=== PATIENT | male | born 1940 | race Caucasian/White ===

== ENCOUNTER → 2018-03-07 14:34 | Outpatient (POV) | payer MEDICARE, BC, SELFPAY | PROVIDERS: Visit Provider Dermatology | DX: Z00.00 Encounter for general adult medical examination without abnormal findings (principal) ==

== ENCOUNTER → 2018-07-04 08:45 | Outpatient (POV) | payer MEDICARE, BC, SELFPAY | PROVIDERS: Visit Provider Dermatology | DX: Z00.00 Encounter for general adult medical examination without abnormal findings (principal) ==

== ENCOUNTER → 2018-07-25 09:48 | Outpatient (POV) | payer MEDICARE, BC, SELFPAY | PROVIDERS: Visit Provider Dermatology | DX: Z00.00 Encounter for general adult medical examination without abnormal findings (principal) ==

== ENCOUNTER → 2018-08-08 09:53 | Outpatient (POV) | payer MEDICARE, BC, SELFPAY | PROVIDERS: Visit Provider Dermatology | DX: Z00.00 Encounter for general adult medical examination without abnormal findings (principal) ==

== ENCOUNTER → 2018-08-15 09:42 | Outpatient (POV) | payer MEDICARE, BC, SELFPAY | PROVIDERS: Visit Provider Dermatology | DX: Z00.00 Encounter for general adult medical examination without abnormal findings (principal) ==

== ENCOUNTER → 2018-12-19 09:14 | Outpatient (POV) | payer MEDICARE, BC, SELFPAY | PROVIDERS: Visit Provider Dermatology | DX: Z00.00 Encounter for general adult medical examination without abnormal findings (principal) ==

== ENCOUNTER → 2019-04-09 08:44 | Outpatient (CLI) | payer MEDICARE, BC, SELFPAY ==
[2019-04-09 14:08] LABS: Blood Urea Nitrogen 22 mg/dL (7-18); Calcium 8.3 mg/dL (8.5-10.1); Carbon Dioxide 28 mmol/L (21.0-32.0); Chloride 107 mmol/L (98-107); Creatinine,Serum 1.58 mg/dL (0.70-1.30); Estimated Glomerular Filt Rate 42 ml/min (>60); GFR (African American) 51 ML/MIN (>60); Glucose 123 mg/dL (74-106); Sodium 143 mmol/L (136-145)
== END ==
PROVIDERS: PCP Internal Medicine Adolescent Medicine; Visit Provider Internal Medicine Adolescent Medicine
DX: E87.5 Hyperkalemia (principal); I10 Essential (primary) hypertension
CPT/HCPCS: 36415; 80048

== ENCOUNTER → 2019-04-24 13:04 | Outpatient (POV) | payer MEDICARE, BC, SELFPAY | PROVIDERS: Visit Provider Dermatology | DX: Z00.00 Encounter for general adult medical examination without abnormal findings (principal) ==

== ENCOUNTER → 2019-05-15 11:03 | Outpatient (POV) | payer MEDICARE, BC, SELFPAY | PROVIDERS: Visit Provider Dermatology | DX: Z00.00 Encounter for general adult medical examination without abnormal findings (principal) ==

== ENCOUNTER 2019-12-03 10:00 | Outpatient (RCR) | payer MEDICARE, BC, SELFPAY ==
--- NOTE | 2019-10-25 11:57 | HMH.PTOPEV ---
PT Outpatient Evaluation Rehab PT Outpatient Evaluation Start: 10/25/19 11:21 Freq: Status: Active Protocol: Document 10/25/19 11:21 CITLALY (Rec: 10/25/19 11:57 PDESEROUX [id number]) Electronically Signed By Gustabo Dumont, PT 10/25/19 11:21 Outpatient Therapy Subjective History Subjective History Pt. is a 79 year old male who presents to outpatient PT clinic w/ complaints of chronic and activity dependent LOB during ambulation of insidious onset 6 months ago. Pt. reports mostly falling to the left side when he loses his balance . Pt. denies having any P! in the LLE, but states my left leg doesn't seem to work, seems to drag. Pt. denies falling in the past 6 months, but does report having to catch himself with the wall/ couch while ambulating in his house.(PT instructed pt. to ambulate w/ SPC as needed) Pt. denies fainting, black outs, nor dizziness. Pt. RTMD for a regular check up. Current medications include Verapamil, Simvastatin, Allopurionl, low dose Aspirin, Preservision, Losaratan, and Carvedilol. PMH includes bowel resection d/t history of colon cancer, Mohs surgeries, and Leukemia(daignosed 15 years ago). Chief Complaint Other,Decreased Coordination Symptom Type Other Symptoms Relieved By Rest/Positioning Symptoms Aggravated By Physical Activity,Walking Prior Functional Limitations None Current Functional Limitations Housework,Standing,Walking, Stairs,Balance Symptom Description Activity Dependent Level of pain today (0-10) 0 Pain scale - at its best (0-10) 0 Pain scale - at its worst (0-10) 0 Hip/Knee Eval Gait Observation General Gait Pattern Observation No Deviations/Normal Assistive Device Assistive Devices None / NA Palpation Tenderness left Knee Palpation Finding None/Normal Hip Palpation Findings None/Normal MMT right Hip Strength Reason
== END 2019-12-03 13:00 | disposition home or self-care (01) ==
LOC: PT.CARL 10:00
PROVIDERS: Visit Provider Internal Medicine Adolescent Medicine
DX: R29.898 Other symptoms and signs involving the musculoskeletal system (principal)
CPT/HCPCS: 97110; 97112; 97163

== ENCOUNTER → 2020-04-14 13:57 | Outpatient (CLI) | payer MEDICARE, BC, SELFPAY ==
[2020-04-14 15:26] LABS: Chloride 112 mmol/L (98-107); Potassium 4.2 mmoL/L (3.5-5.1); Sodium 141 mmol/L (136-145)
[2020-04-14 15:29] LABS: Anion Gap 9.2 mEq/L (5-15); Blood Urea Nitrogen 27 mg/dl (9-20); Carbon Dioxide 24 mmol/L (22.0-30.0); Estimated Glomerular Filt Rate 26 ml/min (>60); GFR (African American) 32 ML/MIN (>60)
[2020-04-14 15:30] LABS: Calcium 8.4 mg/dl (8.4-10.2); Glucose 97 mg/dl (74-100)
[2020-04-14 16:07] LABS: Basophils # 3.1 K/mm3 (0-0.2); Basophils % 2.8 % (0.1-2.0); Eosinophils # 0.2 K/mm3 (0.0-0.4); Eosinophils % 0.1 % (0.1-12.0); Hematocrit 42.6 % (42.0-52.0); Hemoglobin 13.5 g/dL (14.1-18.0); Lymphocytes # 100.5 K/mm3 (0.7-4.5); Lymphocytes % 89.9 % (10-50); Mean Corpuscular HGB Conc 31.6 g/dL (31.8-35.4); Mean Corpuscular Hemoglobin 29.5 pg (27.0-31.2); Mean Corpuscular Volume 93.5 fl (80-94); Monocytes # 0.8 K/mm3 (0.1-1.0); Monocytes % 0.7 % (1.7-9.3); Neutrophils # 7.3 K/mm3 (1.8-7.8); Platelet Count 146 K/mm3 (142-424); Red Blood Count 4.56 M/mm3 (4.60-6.20); Red Cell Distribution Width 15.7 % (11.5-17.5)
[2020-04-14 17:23] LABS: Coronavirus 19 IgG Antibody Negative (Negative); Coronavirus 19 IgM Antibody Negative (Negative)
[2020-04-14 17:27] LABS: Neutrophils % 6.5 % (37.0-80.0)
[2020-04-14 17:29] LABS: White Blood Count 111.8 K/mm3 (4.8-10.8)
[2020-04-14 17:31] LABS: MANUAL DIFFERENTIAL MANUAL DIFFERENTIAL (MANUAL DIFF)
[2020-04-14 22:20] LABS: Hypochromasia 1+; Lymphocytes % 82 % (10-50); Neutrophils % 10 % (42-76); Platelet Estimate Normal; RBC Morphology Normal; Total Cells Counted 100
[2020-04-16 14:04] LABS: Peripheral Smear Review Scanned Result
== END ==
PROVIDERS: Visit Provider Surgery
DX: L98.9 Disorder of the skin and subcutaneous tissue, unspecified (principal); Z01.812 Encounter for preprocedural laboratory examination; Z11.52 Encounter for screening for COVID-19
CPT/HCPCS: 36415; 80048; 85007; 85025; 86328

== ENCOUNTER 2020-04-16 06:03 | Day surgery (SDC) | payer MEDICARE, BC, SELFPAY ==
[2020-04-15 10:32] VITALS: BMI 24.4
[2020-04-16] VITALS (11 sets, daily range): BP systolic 128–165; BP diastolic 64–79; PULSE 51–58; RESP 12–18; TEMP 36.1–36.6; O2SAT 90–98
--- NOTE | 2020-04-16 06:52 | HMH.ANESCL ---
[facility] Anesthesia Checklist - Patient Identification Patient Identification: Arm Band, Verbal (Name & ) - Structural Data Admitted From: Home Planned Operative Procedure/s: excision scalp lession Consent for Planned Operative Procedure(s) Verified: Yes Verified Documents: History and Physical - NPO Status Verified Time NPO: 00:00 - Chart Verification Results Verified: CBC, BMP - Additional verifications Patient : No Anesthesia Reactions: No Hx Blood Transfusions: No Blood Transfusion Reaction: No Cephalosporin Allergy: No Previous Colonoscopy: Yes - Cardiovascular Assessment Heart Sounds: S1 & S2 Pulse Strength: Baseline Pulse Rhythm: Regular Peripheral Edema: No - Airway Assessment C-Spine Mobility Assessed: Yes TMJ Mobility Assessed: Yes Dentition: Poor Dentition - Neurological Assessment Level of Consciousness: Awake, Alert, Appropriate Hx Seizures: No Numbness or tingling in extremities: No - Anesthesia Plan Anesthesia Risk discussed: Yes Anesthesia Plan: Verified ASA Class: III Anesthesia Type: General [facility] History I have reviewed the patient's past medical history: Yes Medical History: Reports:: Cancer (CLL, colon cancer), Hyperlipidemia, Hypertension Denies:: Diabetes Mellitus Type 1, Diabetes Mellitus Type 2, Internal Pacemaker, MRSA, Seizures *Have you ever received a pneumonia vaccine?: Yes *Have you received a flu vaccine this season?: Yes Other Medical History: Reports: Other. Denies: Blood Transfusion Reaction Anesthesia experience/problems:: none Laterality Cases: Bilateral: Tonsillectomy Other Surgeries: Yes: Cancer Surgery, Colonoscopy, Other. No: Pacemaker Amputation: No Fractures: No - *Social History Last grade of school completed: Advanced degree Smoking Status: Never smoker Alcohol Intake: current Alcohol Intake Frequency:: 0-2 drinks per day Substance Use Type: denies use *Occupational Status:: retired Housing: house Household Members: spouse *Travel in the last 8 weeks: None Family Hx:: Cancer
--- NOTE | 2020-04-16 08:17 | HMH.OPNOTE ---
Date of procedure: 04/16/20 Pre-op Diagnosis:: Inflamed/infected sebaceous cyst, left scalp Post-op Diagnosis:: Same Procedure performed:: Excision and debridement of infected left scalp sebaceous cyst Surgeon:: Maynor Merchant MD APPLICATIONS ENGINEER:: Other Anesthesia: LMA Estimated blood loss (mL): 50 Clinical Note:: Patient is an 79-year-old male who is well-known to me from prior colon resection in 2011. He was referred and seen in the office 2 days ago. He also has a history of CLL. He has had previous basal cell carcinomas removed from the scalp. He states that over the past couple months he has had a swelling in the right posterior scalp area. It had markedly increased in size. He was seen in his primary care provider's office several weeks ago and referred for excision of sebaceous cyst. The area had continued to increase in size. Over the past couple weeks he has had some bloody particulate drainage exuding from the area. On examination in the office he had a very large likely infected abscessed draining sebaceous cyst. The options were discussed with the patient plan was made for incision with debridement and likely partial closure due to the infected nature. Operative findings:: Consistent with severely inflamed ruptured infected sebaceous cyst Operative note:: Patient was taken to the operating room. General anesthesia was induced via LMA. He was positioned. Limited skin shaving was performed around the lesion. It was prepped and draped in standard surgical fashion. There was central fluctuance and draining. Skin was marked with skin marker. Elliptical incision was made. Bloody fluid and caseous material exuded from the underlying tissues. This was sent for culture. Overlying skin ellipse was excised. Underlying tissues were quite ill-defined due to the chronic inflammatory response and infection. This required debridement using ultimately small curette to debride caseous material and make an attempt to debride any cyst capsule. Material was sent for specimen. Wound was irrigated. Hemostasis was achieved with electrocautery. Local anesthetic was infiltrated. Skin was closed with skin felicia leaving central gap to allow for drainage. Clean dry sterile dressing was applied. Condition: stable Disposition: PACU Specimens:: Sebaceous cyst . Complications:: None immediately apparent
== END 2020-04-16 09:53 | disposition home or self-care (01) ==
LOC: OR 06:05
PROVIDERS: PCP Internal Medicine Adolescent Medicine; Visit Provider Surgery
PROC: (CPT 11424; principal; 2020-04-16 07:30)
DX: L72.3 Sebaceous cyst; Z90.49 Acquired absence of other specified parts of digestive tract; Z85.038 Personal history of other malignant neoplasm of large intestine; Z85.6 Personal history of leukemia; Z85.828 Personal history of other malignant neoplasm of skin; E78.5 Hyperlipidemia, unspecified; I10 Essential (primary) hypertension; Z80.9 Family history of malignant neoplasm, unspecified; Z79.82 Long term (current) use of aspirin; Z79.899 Other long term (current) drug therapy
CPT/HCPCS: 11424; 12032; 87070; 87075; 87077; 87186; 87205; 88305; 96374; J2405

== ENCOUNTER → 2020-09-08 09:32 | Outpatient (CLI) | payer MEDICARE, BC, SELFPAY ==
[2020-09-08 14:29] LABS: Eosinophils # 0.2 K/mm3 (0.0-0.4); Eosinophils % 0.2 % (0.1-12.0); Hematocrit 35.7 % (42.0-52.0); Hemoglobin 11.5 g/dL (14.1-18.0); Lymphocytes # 93.4 K/mm3 (0.7-4.5); Lymphocytes % 91.7 % (10-50); Mean Corpuscular HGB Conc 32.3 g/dL (31.8-35.4); Mean Corpuscular Hemoglobin 28.5 pg (27.0-31.2); Mean Corpuscular Volume 88.1 fl (80-94); Mean Platelet Volume 8.4 fl (7.4-10.4); Monocytes # 0.7 K/mm3 (0.1-1.0); Monocytes % 0.7 % (1.7-9.3); Neutrophils # 5.5 K/mm3 (1.8-7.8); Platelet Count 105 K/mm3 (142-424); Red Blood Count 4.05 M/mm3 (4.60-6.20); Red Cell Distribution Width 15.7 % (11.5-17.5)
[2020-09-08 14:43] LABS: Alanine Aminotransferase 8 U/L (12-78); Albumin Level 3.2 g/dl (3.5-5.0); Albumin/Globulin Ratio 1.3 (1.1-1.8); Alkaline Phosphatase 115 U/L (38-126); Anion Gap 9.2 mEq/L (5-15); Aspartate Amino Transferase 22 U/L (17-59); Bilirubin,Total 0.6 mg/dl (0.2-1.3); Blood Urea Nitrogen 34 mg/dl (9-20); Calcium 8.3 mg/dl (8.4-10.2); Carbon Dioxide 22 mmol/L (22.0-30.0); Chloride 113 mmol/L (98-107); Estimated Glomerular Filt Rate 30 ml/min (>60); GFR (African American) 37 ML/MIN (>60); Globulin 2.5 g/dL (1.3-3.2); Glucose 88 mg/dl (74-100); Potassium 4.2 mmoL/L (3.5-5.1); Sodium 140 mmol/L (136-145); Total Protein,Serum 5.7 g/dl (6.3-8.2)
[2020-09-08 15:52] LABS: MANUAL DIFFERENTIAL MANUAL DIFFERENTIAL (MANUAL DIFF); Neutrophils % 5.4 % (37.0-80.0); White Blood Count 101.8 K/mm3 (4.8-10.8)
[2020-09-08 15:53] LABS: Eosinophils % 2 % (0-3); Lymphocytes % 89 % (10-50); Neutrophils % 9 % (42-76); Platelet Estimate Slight Decrease; Total Cells Counted 100
[2020-09-08 15:54] LABS: Anisocytosis 1+; Poikilocytosis 1+; RBC Morphology Normal
== END ==
PROVIDERS: Visit Provider Internal Medicine Adolescent Medicine
DX: C91.10 Chronic lymphocytic leukemia of B-cell type not having achieved remission (principal); R79.89 Other specified abnormal findings of blood chemistry
CPT/HCPCS: 36415; 80053; 85007; 85025

== ENCOUNTER → 2020-12-04 09:25 | Outpatient (CLI) | payer MEDICARE, BC, SELFPAY ==
--- NOTE | 2020-12-04 09:37 | XR_ITS ---
PROCEDURE: XR CHEST 2V CLINICAL HISTORY: DYSPENA UPON EXERTION COMPARISON: No exams were available for comparison FINDINGS: The cardiomediastinal silhouette and pulmonary vascularity are within normal limits. There are small bilateral pleural effusions left larger than right. Left basilar atelectasis or infiltrate changes are noted. Upper lobes are clear. No acute bony abnormalities. IMPRESSION: Bilateral pleural effusions with left basilar atelectasis or infiltrate Dictated by: Ryder Angeles MD 12/04/2020 15:52 Ryder Angeles MD in [place] 12/04/2020 15:52
[2020-12-04 10:01] LABS: Basophils # 3.2 K/mm3 (0-0.2); Basophils % 2.8 % (0.1-2.0); Eosinophils # 0.2 K/mm3 (0.0-0.4); Eosinophils % 0.1 % (0.1-12.0); Hematocrit 37.2 % (42.0-52.0); Hemoglobin 11.4 g/dL (14.1-18.0); Lymphocytes # 105.5 K/mm3 (0.7-4.5); Lymphocytes % 90.5 % (10-50); Mean Corpuscular HGB Conc 30.6 g/dL (31.8-35.4); Mean Corpuscular Hemoglobin 28.1 pg (27.0-31.2); Mean Corpuscular Volume 91.6 fl (80-94); Mean Platelet Volume 8.3 fl (7.4-10.4); Monocytes # 0.5 K/mm3 (0.1-1.0); Monocytes % 0.4 % (1.7-9.3); Neutrophils # 7.2 K/mm3 (1.8-7.8); Neutrophils % 6.2 % (37.0-80.0); Platelet Count 145 K/mm3 (142-424); Red Blood Count 4.07 M/mm3 (4.60-6.20); Red Cell Distribution Width 15.9 % (11.5-17.5)
[2020-12-04 10:04] LABS: White Blood Count 116.5 K/mm3 (4.8-10.8)
[2020-12-04 10:06] LABS: MANUAL DIFFERENTIAL MANUAL DIFFERENTIAL (MANUAL DIFF)
[2020-12-04 10:50] LABS: Lymphocytes % 90 % (10-50); Monocytes % 1 % (2-9); Neutrophils % 9 % (42-76); Platelet Estimate Normal; Total Cells Counted 100
[2020-12-04 10:51] LABS: RBC Morphology Normal
[2020-12-04 20:40] LABS: Chloride 112 mmol/L (98-107); Potassium 4.1 mmoL/L (3.5-5.1); Sodium 141 mmol/L (136-145)
[2020-12-04 20:43] LABS: Alanine Aminotransferase 8 U/L (12-78); Albumin Level 2.7 g/dl (3.5-5.0); Alkaline Phosphatase 106 U/L (38-126); Anion Gap 12.1 mEq/L (5-15); Aspartate Amino Transferase 20 U/L (17-59); Blood Urea Nitrogen 29 mg/dl (9-20); Carbon Dioxide 21 mmol/L (22.0-30.0); Estimated Glomerular Filt Rate 25 ml/min (>60); GFR (African American) 30 ML/MIN (>60); Globulin 2.6 g/dL (1.3-3.2); Glucose 143 mg/dl (74-100); Total Protein,Serum 5.3 g/dl (6.3-8.2)
[2020-12-04 20:58] LABS: Bilirubin,Total 0.1 mg/dl (0.2-1.3)
== END ==
PROVIDERS: Visit Provider Internal Medicine Adolescent Medicine
DX: R06.09 Other forms of dyspnea (principal); R63.4 Abnormal weight loss
CPT/HCPCS: 36415; 71046; 80053; 85007; 85025

== ENCOUNTER → 2020-12-09 10:44 | Outpatient (POV) | payer MEDICARE, BC, SELFPAY | PROVIDERS: Visit Provider Dermatology | DX: Z00.00 Encounter for general adult medical examination without abnormal findings (principal) ==

== ENCOUNTER → 2020-12-15 07:41 | Outpatient (CLI) | payer MEDICARE, BC, SELFPAY ==
--- NOTE | 2020-12-15 | CA_ITS ---
APPROVED REPORT EXAM: Comprehensive 2D, Doppler, and color-flow Echocardiogram Job Molder: Julieth Gil CRT Ht: 6 ft 0 in Wt: 172lbs BSA: 2.00 BP: 143/59 mmHg Indications: Shortness of Breath, Hyperlipidemia, Hypertension/HDD 2D Dimensions LVOT 2.02 cm (M/F) 1.5-2.5 M-Mode Dimensions RVDd 3.37 cm (0.9-2.6) LA Diam 5.07 cm (1.9-4.0) LVDd 4.94 cm (3.5-5.7) Ao Diam 3.69 cm (2.0-3.7) LVDs 3.77 cm (3.5-5.7) IVSd 2.13 cm (0.6-1.1) PWd 1.28 cm (0.6-1.1) EF (Teich) 47.10% FS 23.70% EDV (Teich) 115.00 mL TAPSE 2.02 (<1.7) ESV (Teich) 60.80 mL LV Diastology E Decel Time 293.00 (160-240 msec) E/A Ratio 2.48 MED E' 5.90 (< 7 cm/sec) MED A' 10.00 cm/s E'/MED E' Ratio 15.86 (>14) LAT E' 7.70 (<10 cm/sec) LAT A' 5.70 cm/s E/LAT E' Ratio 12.16 (>14) Aortic Valve AI PHT 648.00 ms AO Peak GR. 3.90 mmHg Mitral Valve MV E Max Aston. 94.00 (40-130 cm/s) MV A Velocity 38.00 (40-130 cm/s) E/A Ratio 2.48 MV Decel. Time 293.00 (160-240 ms) MV PHT 86.00 ms Pulmonary Valve PV Peak Velocity 203.00 (50-150 cm/s) Tricuspid Valve TR P. Velocity 329.00 cm/s RAP Estimate 10.00 mmHg RVSP 53.30 mmHg Left Ventricle Left atrium is mildly enlarged, left ventricle is normal size, mild concentric left ventricular hypertrophy, visually estimated ejection fraction 55% with no regional wall motion abnormality, diastolic parameters are inconclusive in the study. Right Ventricle Right atrium and right ventricle mildly enlarged with normal contractility. Aortic Valve Aortic valve is minimally thickened and fibrosed, there is no aortic stenosis, there is mild aortic insufficiency. Mitral Valve Mitral valve is minimally thickened, there is mild mitral regurgitation. Tricuspid Valve Tricuspid valve is grossly normal, there is mild tricuspid regurgitation, tricuspid regurgitation jet velocity is inadequate for calculation of the right ventricular systolic pressure. Pulmonic Valve Pulmonic valve is poorly visualized. Great Vessels Aortic root is normal size. Inferior vena cava is mildly dilated with normal inspiratory collapse. Pericardium No significant pericardial effusion noted. Conclusion 1. Mild biatrial enlargement, normal left ventricular size, mild concentric left ventricular hypertrophy, visually estimated ejection fraction 55% with no regional wall motion abnormality, diastolic parameters are inconclusive in the study. 2. Mildly enlarged right ventricle with normal contractility. 3. Mild aortic, mild mitral and tricuspid regurgitation. 4. No significant pericardial effusion noted. 5. Inferior vena cava is mildly dilated with normal inspiratory collapse. Electronically signed by : Jonah Luz MD 12/16/2020 06:53:57
--- NOTE | 2020-12-15 07:44 | CT_ITS ---
PROCEDURE: CT CHEST WO CON CLINICAL INDICATION: DYSPNEA,WEIGHT LOSS COMPARISON: CR XR CHEST 2V from 12/04/2020 TECHNIQUE: Axial images obtained with sagittal and coronal reformats. All CT scans at the facility use one or more dose reduction, viz: automated exposure control, ma/kV adjustment per patient size (including targeted exams where dose is matched to indication, i.e. head), or iterative reconstruction technique. FINDINGS: HEART AND MEDIASTINAL STRUCTURES: There is mild prominence of the ascending aorta at 4 cm. Coronary artery calcifications and/or stents noted. There is minimal thickening of the pericardium. There are numerous small mediastinal lymph nodes with an enlarged munir area in the subcarinal region measuring 3 by 1.8 cm. LUNGS AND PLEURAL SPACES: There is evidence of old granulomatous disease. There are small bilateral pleural effusions with compressive atelectasis in the lower lobes. Atelectasis or consolidation present within the inferior aspect of the lingula. BONY STRUCTURES: Mild degenerative changes thoracic spine and upper lumbar spine UPPER ABDOMEN: The spleen is enlarged 15 by 13 cm. There are several small splenic hypodensities. Gallstones are present. There are bilateral renal calculi. Left renal cysts are present including a prominent parapelvic renal cyst. Prominent nodes are present in the periportal region. These measure up to 4.9 x 1.6 cm. There is infiltration of the retroperitoneal fat in the left periaortic region. This may reflect intermixed adenopathy with inflammatory change or even a retroperitoneal mass and is incompletely imaged. Recommend abdomen and pelvis CT without and with contrast for further evaluation. There is a mildly prominent splenule ADDITIONAL FINDINGS: Mildly prominent bilateral axillary lymph nodes are present left more so than right. Small nodes are present in the lower neck on both sides. IMPRESSION: 1. Mildly prominent mediastinal and axillary lymph nodes. Enlarged periportal lymph nodes with suspected retroperitoneal adenopathy versus incompletely imaged retroperitoneal mass. Splenomegaly is also present with a prominent splenule. These findings are worrisome for lymphoma.. Suggest abdomen and pelvis CT without and with contrast for further evaluation. 2. Small bilateral pleural effusions with atelectatic changes Dictated by: Ryder Angeles MD 12/16/2020 08:05 Ryder Angeles MD in [place] 12/16/2020 08:05
== END ==
PROVIDERS: PCP Internal Medicine Adolescent Medicine; Visit Provider Nurse Practitioner Family
DX: R06.09 Other forms of dyspnea (principal); R63.4 Abnormal weight loss; Z68.23 Body mass index [BMI] 23.0-23.9, adult
CPT/HCPCS: 71250; 93306

== ENCOUNTER → 2021-01-02 10:14 | Outpatient (CLI) | payer MEDICARE, BC, SELFPAY ==
[2021-01-02 12:55] LABS: Blood Urea Nitrogen 26 mg/dl (9-20); Estimated Glomerular Filt Rate 25 ml/min (>60); GFR (African American) 30 ML/MIN (>60)
== END ==
PROVIDERS: Visit Provider Internal Medicine Adolescent Medicine
DX: R63.4 Abnormal weight loss (principal)
CPT/HCPCS: 36415; 82565; 84520

== ENCOUNTER → 2021-01-05 10:12 | Outpatient (CLI) | payer MEDICARE, BC, SELFPAY ==
--- NOTE | 2021-01-05 10:16 | CT_ITS ---
PROCEDURE: CT ABDOMEN PELVIS WO CON CLINICAL INDICATION: CLL, RETROPERITONEAL LYMPHADENOPATHY COMPARISON: CT CT CHEST WO CON from 12/15/2020 TECHNIQUE: Axial images obtained with sagittal and coronal reformats. All CT scans at the facility use one or more dose reduction, viz: automated exposure control, ma/kV adjustment per patient size (including targeted exams where dose is matched to indication, i.e. head), or iterative reconstruction technique. FINDINGS: LOWER THORAX: Medium-sized bilateral pleural effusions with atelectatic change. The right effusion appears somewhat larger. There is dense coronary artery calcification in the LAD. There is minimal thickening of the pericardium suggesting small pericardial effusion unchanged. There is cardiomegaly ABDOMEN & PELVIS: There is a small hypodensity in the right hepatic lobe at 4 mm within segment 5. Cholelithiasis. Splenomegaly at 17 cm. There is a low-density lesion within the central aspect of the spleen at 8 mm not significantly changed. Bilateral renal calculi with prominent left parapelvic renal cyst and a 4 cm left cortical cyst. There is a prominent periportal lymph node which measures 4.8 by 1.6 cm not significantly changed./other smaller nodes are present in the celiac region which are unchanged. Abnormal soft tissue density is present in the left periaortic region at 3.9 cm AP, 2.6 cm transverse, and extending cephalad caudad for 7 cm. This may represent a combination of small lymph nodes with infiltration of the Peggy lymphatic tissue. Smaller nodes are present long the inferior margin of this region. There is some tortuosity of the abdominal aorta. There are small nodes in the pelvis at the internal iliac region. There is mild thickening of the left pericolic gutter and lateral conal fascia. No peritoneal adenopathy evident. There is thickening of the perirectal soft tissues and presacral region.. The prostate is enlarged at 5.7 cm. There are few small nodes present in the inguinal areas on both sides. There is degenerative disc disease in the lumbar spine with mild kyphosis with anterior osteophytes. No lytic or blastic change apparent IMPRESSION: 1. Medium-sized bilateral pleural effusions. 2. Indeterminate 5 mm hypodensity right hepatic lobe and 8 mm hypodensity of the spleen 3. Mildly prominent celiac and retroperitoneal nodes with a prominent portal node as well as mildly prominent inguinal nodes as well as splenomegaly. These findings may be seen with leukemia as the given diagnosis. 4. There is infiltration of the left para-aortic fat which could be seen with leukemia. Stable retroperitoneal hemorrhage would be included in the differential diagnosis 5. Enlarged prostate 6. Nonspecific stranding of the perirectal fat and left pericolic gutter and lateral conal fascia region Dictated by: Ryder Angeles MD 01/06/2021 09:23 Ryder Angeles MD in [place] 01/06/2021 09:23
== END ==
PROVIDERS: PCP Internal Medicine Adolescent Medicine; Visit Provider Internal Medicine Adolescent Medicine
DX: C91.10 Chronic lymphocytic leukemia of B-cell type not having achieved remission (principal); R59.0 Localized enlarged lymph nodes
CPT/HCPCS: 74176

== ENCOUNTER → 2021-03-02 09:20 | Outpatient (CLI) | payer MEDICARE, BC, SELFPAY ==
[2021-03-02 14:26] LABS: Chloride 114 mmol/L (98-107); Sodium 142 mmol/L (136-145)
[2021-03-02 14:29] LABS: Blood Urea Nitrogen 42 mg/dl (9-20); Estimated Glomerular Filt Rate 17 ml/min (>60); GFR (African American) 21 ML/MIN (>60)
[2021-03-02 14:30] LABS: Calcium 8.3 mg/dl (8.4-10.2); Carbon Dioxide 20 mmol/L (22.0-30.0); Glucose 123 mg/dl (74-100)
== END ==
PROVIDERS: Visit Provider Internal Medicine Adolescent Medicine
DX: N18.32 Chronic kidney disease, stage 3b (principal)
CPT/HCPCS: 36415; 80048

== ENCOUNTER → 2021-03-16 09:20 | Outpatient (CLI) | payer MEDICARE, BC, SELFPAY ==
[2021-03-16 13:58] LABS: Blood Urea Nitrogen 40 mg/dl (9-20); Carbon Dioxide 19 mmol/L (22.0-30.0); Chloride 112 mmol/L (98-107); Estimated Glomerular Filt Rate 20 ml/min (>60); GFR (African American) 24 ML/MIN (>60); Glucose 115 mg/dl (74-100); Sodium 139 mmol/L (136-145)
[2021-03-16 14:04] LABS: Basophils # 2.1 K/mm3 (0-0.2); Basophils % 2.5 % (0.1-2.0); Eosinophils # 0.4 K/mm3 (0.0-0.4); Eosinophils % 0.4 % (0.1-12.0); Hematocrit 30.5 % (42.0-52.0); Hemoglobin 9.2 g/dL (14.1-18.0); Lymphocytes # 78.2 K/mm3 (0.7-4.5); Lymphocytes % 90.4 % (10-50); Mean Corpuscular HGB Conc 30.2 g/dL (31.8-35.4); Mean Corpuscular Hemoglobin 27.8 pg (27.0-31.2); Mean Corpuscular Volume 92.3 fl (80-94); Mean Platelet Volume 7.3 fl (7.4-10.4); Monocytes # 0.5 K/mm3 (0.1-1.0); Monocytes % 0.6 % (1.7-9.3); Neutrophils # 5.3 K/mm3 (1.8-7.8); Platelet Count 115 K/mm3 (142-424); Red Blood Count 3.31 M/mm3 (4.60-6.20); Red Cell Distribution Width 15.7 % (11.5-17.5)
[2021-03-16 14:10] LABS: Neutrophils % 6.1 % (37.0-80.0)
[2021-03-16 14:12] LABS: White Blood Count 86.6 K/mm3 (4.8-10.8)
[2021-03-16 14:13] LABS: MANUAL DIFFERENTIAL MANUAL DIFFERENTIAL (MANUAL DIFF)
[2021-03-16 14:29] LABS: Lymphocytes % 98 % (10-50); Monocytes % 1 % (2-9); Neutrophils % 1 % (42-76); Platelet Estimate Slight Decrease; RBC Morphology Normal; Total Cells Counted 100
== END ==
PROVIDERS: Visit Provider Internal Medicine Adolescent Medicine
DX: N18.32 Chronic kidney disease, stage 3b (principal); C91.10 Chronic lymphocytic leukemia of B-cell type not having achieved remission
CPT/HCPCS: 36415; 80048; 85007; 85025

== ENCOUNTER → 2021-04-22 10:00 | Outpatient (CLI) | payer MEDICARE, BC, SELFPAY ==
[2021-04-22 14:32] LABS: Basophils % 2.1 % (0.1-2.0); Eosinophils # 0.2 K/mm3 (0.0-0.4); Eosinophils % 0.2 % (0.1-12.0); Hematocrit 30.9 % (42.0-52.0); Hemoglobin 9.7 g/dL (14.1-18.0); Lymphocytes # 88.1 K/mm3 (0.7-4.5); Lymphocytes % 91.1 % (10-50); Mean Corpuscular HGB Conc 31.3 g/dL (31.8-35.4); Mean Corpuscular Hemoglobin 29.6 pg (27.0-31.2); Mean Corpuscular Volume 94.6 fl (80-94); Mean Platelet Volume 8.6 fl (7.4-10.4); Monocytes # 0.6 K/mm3 (0.1-1.0); Monocytes % 0.6 % (1.7-9.3); Neutrophils # 5.9 K/mm3 (1.8-7.8); Platelet Count 143 K/mm3 (142-424); Red Blood Count 3.27 M/mm3 (4.60-6.20); Red Cell Distribution Width 16.1 % (11.5-17.5)
[2021-04-22 15:05] LABS: Alanine Aminotransferase 9 U/L (12-78); Albumin Level 3.2 g/dl (3.5-5.0); Albumin/Globulin Ratio 1.2 (1.1-1.8); Alkaline Phosphatase 83 U/L (38-126); Anion Gap 12.7 mEq/L (5-15); Aspartate Amino Transferase 20 U/L (17-59); Bilirubin,Total 0.4 mg/dl (0.2-1.3); Blood Urea Nitrogen 50 mg/dl (9-20); Calcium 8.2 mg/dl (8.4-10.2); Carbon Dioxide 18 mmol/L (22.0-30.0); Chloride 113 mmol/L (98-107); Estimated Glomerular Filt Rate 17 ml/min (>60); GFR (African American) 20 ML/MIN (>60); Globulin 2.6 g/dL (1.3-3.2); Glucose 87 mg/dl (74-100); Lactate Dehydrogenase 198 U/L (313-618); Potassium 4.7 mmoL/L (3.5-5.1); Sodium 139 mmol/L (136-145); Total Protein,Serum 5.8 g/dl (6.3-8.2); Uric Acid 6.6 mg/dl (3.5-8.5)
[2021-04-22 15:36] LABS: Neutrophils % 6.1 % (37.0-80.0)
[2021-04-22 15:39] LABS: MANUAL DIFFERENTIAL MANUAL DIFFERENTIAL (MANUAL DIFF); White Blood Count 96.7 K/mm3 (4.8-10.8)
[2021-04-22 15:41] LABS: Lymphocytes % 94 % (10-50); Neutrophils % 6 % (42-76); Total Cells Counted 200
[2021-04-22 15:42] LABS: Platelet Estimate Normal
--- NOTE | 2021-04-22 16:14 | PC.NURSE ---
Ruben Hitchcock called RN at 1536 to report wbc-96.7. RN repeated and verified pt name, , and lab value. Result called to Dr. Liv Person, no new orders noted.
== END ==
PROVIDERS: Visit Provider Internal Medicine Medical Oncology
DX: R91.8 Other nonspecific abnormal finding of lung field (principal)
CPT/HCPCS: 36415; 80053; 83615; 84550; 85007; 85025

== ENCOUNTER → 2021-04-28 09:46 | Outpatient (POV) | payer MEDICARE, BC, SELFPAY | PROVIDERS: Visit Provider Dermatology | DX: Z00.00 Encounter for general adult medical examination without abnormal findings (principal) ==

== ENCOUNTER → 2021-08-04 10:09 | Outpatient (POV) | payer MEDICARE, BC, SELFPAY | PROVIDERS: Visit Provider Dermatology | DX: Z00.00 Encounter for general adult medical examination without abnormal findings (principal) ==

== ENCOUNTER → 2021-08-13 08:23 | Outpatient (CLI) | payer MEDICARE, BC, SELFPAY ==
[2021-08-13 14:24] LABS: Alanine Aminotransferase 13 U/L (12-78); Albumin Level 2.8 g/dl (3.5-5.0); Albumin/Globulin Ratio 1.2 (1.1-1.8); Alkaline Phosphatase 86 U/L (38-126); Anion Gap 11.6 mEq/L (5-15); Aspartate Amino Transferase 18 U/L (17-59); Bilirubin,Total < 0.1 mg/dl (0.2-1.3); Blood Urea Nitrogen 43 mg/dl (9-20); Calcium 7.6 mg/dl (8.4-10.2); Carbon Dioxide 16 mmol/L (22.0-30.0); Chloride 117 mmol/L (98-107); Estimated Glomerular Filt Rate 17 ml/min (>60); GFR (African American) 21 ML/MIN (>60); Globulin 2.4 g/dL (1.3-3.2); Glucose 128 mg/dl (74-100); Lactate Dehydrogenase 199 U/L (313-618); Potassium 3.6 mmoL/L (3.5-5.1); Sodium 141 mmol/L (136-145); Total Protein,Serum 5.2 g/dl (6.3-8.2); Uric Acid 6.7 mg/dl (3.5-8.5)
[2021-08-13 14:33] LABS: Basophils # 2.1 K/mm3 (0-0.2); Basophils % 2.2 % (0.1-2.0); Eosinophils # 0.1 K/mm3 (0.0-0.4); Eosinophils % 0.1 % (0.1-12.0); Hematocrit 30.3 % (42.0-52.0); Hemoglobin 9.8 g/dL (14.1-18.0); Lymphocytes # 86.7 K/mm3 (0.7-4.5); Mean Corpuscular HGB Conc 32.3 g/dL (31.8-35.4); Mean Corpuscular Hemoglobin 29.8 pg (27.0-31.2); Mean Corpuscular Volume 92.4 fl (80-94); Mean Platelet Volume 9.5 fl (7.4-10.4); Monocytes # 0.6 K/mm3 (0.1-1.0); Monocytes % 0.7 % (1.7-9.3); Neutrophils # 5.7 K/mm3 (1.8-7.8); Platelet Count 122 K/mm3 (142-424); Red Blood Count 3.28 M/mm3 (4.60-6.20); Red Cell Distribution Width 15.9 % (11.5-17.5)
[2021-08-13 14:52] LABS: White Blood Count 95.3 K/mm3 (4.8-10.8)
[2021-08-13 14:53] LABS: MANUAL DIFFERENTIAL MANUAL DIFFERENTIAL (MANUAL DIFF)
--- NOTE | 2021-08-13 14:56 | PC.NURSE ---
Joan JIMENEZ CALLED RN AT 1455 TO REPORT WBC OF 95.3. RN REPEATED AND VERIFIED PT NAME, , AND LAB VALUE. RESULTS CALLED TO C GIANFRANCO AND PT WILL FOLLOW UP IN OFFICE NEXT WEEK AT NORMAL TIME;
[2021-08-13 18:02] LABS: Anisocytosis 1+; Eosinophils % 1 % (0-3); Helmet Cells 1+; Lymphocytes % 91 % (10-50); Neutrophils % 8 % (42-76); Ovalocytes 1+; Platelet Estimate Normal; Total Cells Counted 100
[2021-08-13 18:03] LABS: Burr Cells 1+
== END ==
PROVIDERS: Visit Provider Internal Medicine Medical Oncology
DX: C91.10 Chronic lymphocytic leukemia of B-cell type not having achieved remission (principal)
CPT/HCPCS: 36415; 80053; 83615; 84550; 85007; 85025

== ENCOUNTER → 2021-08-25 09:59 | Outpatient (POV) | payer MEDICARE, BC, SELFPAY | PROVIDERS: Visit Provider Dermatology | DX: Z00.00 Encounter for general adult medical examination without abnormal findings (principal) ==

== ENCOUNTER → 2022-02-03 11:05 | Outpatient (CLI) | payer MEDICARE, BC, SELFPAY ==
[2022-02-03 11:42] LABS: Basophils # 1.3 K/mm3 (0-0.2); Basophils % 1.5 % (0.1-2.0); Eosinophils # 0.1 K/mm3 (0.0-0.4); Eosinophils % 0.1 % (0.1-12.0); Hematocrit 30.2 % (42.0-52.0); Hemoglobin 9.4 g/dL (14.1-18.0); Lymphocytes # 79.4 K/mm3 (0.7-4.5); Lymphocytes % 91.8 % (10-50); Mean Corpuscular Hemoglobin 28.8 pg (27.0-31.2); Mean Corpuscular Volume 92.9 fl (80-94); Mean Platelet Volume 7.8 fl (7.4-10.4); Monocytes # 0.6 K/mm3 (0.1-1.0); Monocytes % 0.6 % (1.7-9.3); Neutrophils # 5.2 K/mm3 (1.8-7.8); Platelet Count 118 K/mm3 (142-424); Red Blood Count 3.25 M/mm3 (4.60-6.20); Red Cell Distribution Width 15.7 % (11.5-17.5)
[2022-02-03 11:47] LABS: White Blood Count 86.5 K/mm3 (4.8-10.8)
[2022-02-03 11:49] LABS: MANUAL DIFFERENTIAL MANUAL DIFFERENTIAL (MANUAL DIFF)
[2022-02-03 12:03] LABS: Lymphocytes % 94 % (10-50); Neutrophils % 6 % (42-76); Total Cells Counted 100
[2022-02-03 12:04] LABS: Anisocytosis 1+; Hypochromasia 1+; Ovalocytes 1+; Platelet Estimate Slight Decrease
[2022-02-03 13:04] LABS: Alanine Aminotransferase 11 U/L (12-78); Albumin/Globulin Ratio 1.2 (1.1-1.8); Alkaline Phosphatase 104 U/L (38-126); Anion Gap 17.9 mEq/L (5-15); Aspartate Amino Transferase 19 U/L (17-59); Bilirubin,Total 0.2 mg/dl (0.2-1.3); Blood Urea Nitrogen 46 mg/dl (9-20); Carbon Dioxide 15 mmol/L (22.0-30.0); Chloride 114 mmol/L (98-107); Estimated Glomerular Filt Rate 13 ml/min (>60); GFR (African American) 16 ML/MIN (>60); Globulin 2.5 g/dL (1.3-3.2); Glucose 120 mg/dl (74-100); Potassium 3.9 mmoL/L (3.5-5.1); Sodium 143 mmol/L (136-145); Total Protein,Serum 5.5 g/dl (6.3-8.2)
--- NOTE | 2022-02-03 13:15 | PC.NURSE ---
1315Lolly Tavera at 1515 to report creat 4.40. rn repeated and verified pt name, , and lab value.Result called to and no new orders received at this times.
== END ==
PROVIDERS: PCP Internal Medicine Adolescent Medicine; Visit Provider Internal Medicine Medical Oncology
DX: C34.90 Malignant neoplasm of unspecified part of unspecified bronchus or lung (principal)
CPT/HCPCS: 36415; 80053; 85007; 85025

== ENCOUNTER → 2022-02-16 09:56 | Outpatient (POV) | payer MEDICARE, BC, SELFPAY | PROVIDERS: Visit Provider Dermatology | DX: Z00.00 Encounter for general adult medical examination without abnormal findings (principal) ==

== ENCOUNTER → 2022-03-04 11:20 | Outpatient (CLI) | payer MEDICARE, BC, SELFPAY ==
[2022-03-04 11:28] LABS: Microscopic, Urine URINE MICROSCOPIC (MICROSCOPIC)
[2022-03-04 13:02] LABS: Basophils # 1.2 K/mm3 (0-0.2); Basophils % 1.4 % (0.1-2.0); Eosinophils # 0.1 K/mm3 (0.0-0.4); Eosinophils % 0.1 % (0.1-12.0); Hematocrit 30.6 % (42.0-52.0); Hemoglobin 9.3 g/dL (14.1-18.0); Lymphocytes # 78.6 K/mm3 (0.7-4.5); Lymphocytes % 90.6 % (10-50); Mean Corpuscular HGB Conc 30.4 g/dL (31.8-35.4); Mean Corpuscular Hemoglobin 29.2 pg (27.0-31.2); Mean Platelet Volume 8.9 fl (7.4-10.4); Monocytes # 0.5 K/mm3 (0.1-1.0); Monocytes % 0.6 % (1.7-9.3); Neutrophils # 6.3 K/mm3 (1.8-7.8); Platelet Count 148 K/mm3 (142-424); Red Blood Count 3.19 M/mm3 (4.60-6.20)
[2022-03-04 13:10] LABS: Neutrophils % 7.3 % (37.0-80.0)
[2022-03-04 13:36] LABS: MANUAL DIFFERENTIAL MANUAL DIFFERENTIAL (MANUAL DIFF)
[2022-03-04 13:37] LABS: White Blood Count 86.7 K/mm3 (4.8-10.8)
[2022-03-04 13:50] LABS: 25-OH Vitamin D, Total < 12.8 ng/mL (30-100)
[2022-03-04 14:02] LABS: Albumin Level 2.8 g/dl (3.5-5.0); Chloride 119 mmol/L (98-107); Potassium 3.7 mmoL/L (3.5-5.1); Sodium 141 mmol/L (136-145)
[2022-03-04 14:04] LABS: Blood Urea Nitrogen 47 mg/dl (9-20); Estimated Glomerular Filt Rate 12 ml/min (>60); GFR (African American) 14 ML/MIN (>60)
[2022-03-04 14:05] LABS: Anion Gap 12.7 mEq/L (5-15); Calcium 7.9 mg/dl (8.4-10.2); Carbon Dioxide 13 mmol/L (22.0-30.0); Glucose 129 mg/dl (74-100); Phosphorous 4.6 mg/dl (2.5-4.5)
[2022-03-04 15:13] LABS: Appearance,Urine CLEAR (Clear); Bilirubin,Urine Negative (Negative); Blood, Urine 2+ (Negative); Color,Urine YELLOW (Yellow); Glucose,Urine (UA) 1+ (Negative); Ketones,Urine Negative (Negative); Leukocyte Esterase,Urine Negative (Negative); Nitrate,Urine Negative (Negative); PH,Urine 5.5 (5.0-8.5); Protein,Urine 3+ (Negative); Specific Gravity, Urine >= 1.030 (1.005-1.030); Urobilinogen,Urine 0.2 EU/dl (0.2)
[2022-03-04 16:22] LABS: Creatinine,Urine Random 153 mg/dL (Not Estab.)
[2022-03-04 16:39] LABS: Bacteria,Urine 1+ /lpf
[2022-03-04 17:42] LABS: Hypochromasia 2+; Lymphocytes % 94 % (10-50); Neutrophils % 6 % (42-76); Platelet Estimate Normal; Total Cells Counted 100
== END ==
PROVIDERS: PCP Internal Medicine Adolescent Medicine; Visit Provider Internal Medicine Nephrology
DX: N17.9 Acute kidney failure, unspecified (principal); E55.9 Vitamin D deficiency, unspecified
CPT/HCPCS: 36415; 80069; 81001; 82306; 82570; 84155; 85007; 85025

== ENCOUNTER → 2022-03-08 11:03 | Outpatient (POV) | payer MEDICARE, BC, SELFPAY | PROVIDERS: Visit Provider Internal Medicine Nephrology | DX: Z00.00 Encounter for general adult medical examination without abnormal findings (principal) ==

== ENCOUNTER → 2022-03-16 10:20 | Outpatient (POV) | payer MEDICARE, BC, SELFPAY | PROVIDERS: Visit Provider Dermatology | DX: Z00.00 Encounter for general adult medical examination without abnormal findings (principal) ==

== ENCOUNTER → 2022-04-21 14:25 | Outpatient (CLI) | payer MEDICARE, BC, SELFPAY ==
--- NOTE | 2022-04-21 14:32 | XR_ITS ---
FINAL REPORT CLINICAL HISTORY: Shortness of breath on exertion COMPARISON: 12/04/2020 FINDINGS: PA and lateral views of the chest were obtained. The cardiac and mediastinal silhouettes are within normal limits. There is a left lower lobe opacity and left pleural effusion, unchanged from 2020. The lungs are otherwise clear. There is no pneumothorax. No acute osseous abnormality is identified. IMPRESSION: Stable left lower lobe opacity and left pleural effusion. Reviewed, Interpreted and Dictated by Paula Mendoza MD Transcribed by Karolina Slaughter Authenticated and [facility]
[2022-04-21 16:32] LABS: Basophils # 0.7 K/mm3 (0-0.2); Basophils % 1.1 % (0.1-2.0); Eosinophils # 0.1 K/mm3 (0.0-0.4); Eosinophils % 0.2 % (0.1-12.0); Hematocrit 28.9 % (42.0-52.0); Hemoglobin 9.2 g/dL (14.1-18.0); Lymphocytes # 59.3 K/mm3 (0.7-4.5); Lymphocytes % 91.3 % (10-50); Mean Corpuscular HGB Conc 31.8 g/dL (31.8-35.4); Mean Corpuscular Hemoglobin 29.1 pg (27.0-31.2); Mean Corpuscular Volume 91.4 fl (80-94); Mean Platelet Volume 8.2 fl (7.4-10.4); Monocytes # 0.6 K/mm3 (0.1-1.0); Monocytes % 0.9 % (1.7-9.3); Neutrophils # 4.3 K/mm3 (1.8-7.8); Platelet Count 133 K/mm3 (142-424); Red Blood Count 3.17 M/mm3 (4.60-6.20); Red Cell Distribution Width 16.3 % (11.5-17.5)
[2022-04-21 16:36] LABS: Neutrophils % 6.6 % (37.0-80.0)
[2022-04-21 16:40] LABS: MANUAL DIFFERENTIAL MANUAL DIFFERENTIAL (MANUAL DIFF)
[2022-04-21 17:42] LABS: Anion Gap 10.9 mEq/L (5-15); Blood Urea Nitrogen 27 mg/dl (9-20); Calcium 7.6 mg/dl (8.4-10.2); Carbon Dioxide 22 mmol/L (22.0-30.0); Chloride 113 mmol/L (98-107); Estimated Glomerular Filt Rate 16 ml/min (>60); GFR (African American) 19 ML/MIN (>60); Glucose 95 mg/dl (74-100); Potassium 3.9 mmoL/L (3.5-5.1); Sodium 142 mmol/L (136-145)
[2022-04-21 17:52] LABS: Lymphocytes % 90 % (10-50); Neutrophils % 10 % (42-76); Total Cells Counted 100
[2022-04-21 17:53] LABS: Ovalocytes 1+; Platelet Estimate Slight Decrease
[2022-04-21 17:54] LABS: Anisocytosis 1+
== END ==
PROVIDERS: PCP Internal Medicine Adolescent Medicine; Visit Provider Internal Medicine Adolescent Medicine
DX: R06.09 Other forms of dyspnea (principal); C91.10 Chronic lymphocytic leukemia of B-cell type not having achieved remission
CPT/HCPCS: 36415; 71046; 80048; 85007; 85025

== ENCOUNTER → 2022-04-29 11:49 | Outpatient (CLI) | payer MEDICARE, BC, SELFPAY ==
[2022-04-29 11:56] LABS: Microscopic, Urine URINE MICROSCOPIC (MICROSCOPIC)
[2022-04-29 12:25] LABS: Appearance,Urine CLEAR (Clear); Bilirubin,Urine Negative (Negative); Blood, Urine 1+ (Negative); Color,Urine YELLOW (Yellow); Glucose,Urine (UA) 1+ (Negative); Ketones,Urine Negative (Negative); Leukocyte Esterase,Urine Negative (Negative); Nitrate,Urine Negative (Negative); PH,Urine 6.5 (5.0-8.5); Protein,Urine 3+ (Negative); Urobilinogen,Urine 0.2 EU/dl (0.2)
[2022-04-29 12:26] LABS: Basophils # 0.4 K/mm3 (0-0.2); Basophils % 0.8 % (0.1-2.0); Eosinophils # 0.1 K/mm3 (0.0-0.4); Eosinophils % 0.1 % (0.1-12.0); Hematocrit 27.7 % (42.0-52.0); Hemoglobin 8.5 g/dL (14.1-18.0); Lymphocytes # 42.7 K/mm3 (0.7-4.5); Lymphocytes % 92.2 % (10-50); Mean Corpuscular HGB Conc 30.8 g/dL (31.8-35.4); Mean Corpuscular Hemoglobin 28.1 pg (27.0-31.2); Mean Corpuscular Volume 91.2 fl (80-94); Mean Platelet Volume 8.2 fl (7.4-10.4); Monocytes # 0.5 K/mm3 (0.1-1.0); Monocytes % 1.1 % (1.7-9.3); Neutrophils # 2.7 K/mm3 (1.8-7.8); Platelet Count 124 K/mm3 (142-424); Red Blood Count 3.03 M/mm3 (4.60-6.20); Red Cell Distribution Width 15.9 % (11.5-17.5)
[2022-04-29 12:37] LABS: Squamous Epithelial Cell,Urine Occasional #/hpf (0-5)
[2022-04-29 12:39] LABS: Creatinine,Urine Random 99 mg/dL (Not Estab.)
[2022-04-29 12:49] LABS: White Blood Count 46.3 K/mm3 (4.8-10.8)
[2022-04-29 12:50] LABS: MANUAL DIFFERENTIAL MANUAL DIFFERENTIAL (MANUAL DIFF)
[2022-04-29 12:57] LABS: Albumin Level 2.9 g/dl (3.5-5.0); Anion Gap 9.6 mEq/L (5-15); Blood Urea Nitrogen 29 mg/dl (9-20); Calcium 7.4 mg/dl (8.4-10.2); Carbon Dioxide 24 mmol/L (22.0-30.0); Chloride 109 mmol/L (98-107); Estimated Glomerular Filt Rate 14 ml/min (>60); GFR (African American) 17 ML/MIN (>60); Glucose 122 mg/dl (74-100); Phosphorous 4.2 mg/dl (2.5-4.5); Potassium 3.6 mmoL/L (3.5-5.1); Sodium 139 mmol/L (136-145)
[2022-04-29 13:37] LABS: Lymphocytes % 92 % (10-50); Monocytes % 3 % (2-9); Neutrophils % 5 % (42-76); Total Cells Counted 100
[2022-04-29 13:38] LABS: Platelet Estimate Slight Decrease; RBC Morphology Normal
[2022-04-29 13:41] LABS: Neutrophils % 5.8 % (37.0-80.0)
== END ==
PROVIDERS: PCP Internal Medicine Adolescent Medicine; Visit Provider Internal Medicine Nephrology
DX: N18.5 Chronic kidney disease, stage 5 (principal)
CPT/HCPCS: 36415; 80069; 81001; 82570; 84155; 85007; 85025

== ENCOUNTER → 2022-05-03 09:41 | Outpatient (POV) | payer MEDICARE, BC, SELFPAY | PROVIDERS: Visit Provider Internal Medicine Nephrology | DX: Z00.00 Encounter for general adult medical examination without abnormal findings (principal) ==

== ENCOUNTER → 2022-06-01 11:19 | Outpatient (CLI) | payer MEDICARE, BC, SELFPAY ==
[2022-06-01 12:07] LABS: Basophils # 0.8 K/mm3 (0-0.2); Basophils % 1.1 % (0.1-2.0); Eosinophils # 0.1 K/mm3 (0.0-0.4); Eosinophils % 0.1 % (0.1-12.0); Hematocrit 28.3 % (42.0-52.0); Hemoglobin 9.2 g/dL (14.1-18.0); Lymphocytes # 56.3 K/mm3 (0.7-4.5); Lymphocytes % 80.5 % (10-50); Mean Corpuscular HGB Conc 32.6 g/dL (31.8-35.4); Mean Corpuscular Hemoglobin 28.4 pg (27.0-31.2); Mean Corpuscular Volume 87.2 fl (80-94); Mean Platelet Volume 7.7 fl (7.4-10.4); Monocytes # 0.5 K/mm3 (0.1-1.0); Monocytes % 0.8 % (1.7-9.3); Neutrophils # 12.3 K/mm3 (1.8-7.8); Neutrophils % 17.6 % (37.0-80.0); Platelet Count 116 K/mm3 (142-424); Red Blood Count 3.24 M/mm3 (4.60-6.20); Red Cell Distribution Width 16.3 % (11.5-17.5)
[2022-06-01 12:29] LABS: Anion Gap 7.2 mEq/L (5-15); Blood Urea Nitrogen 36 mg/dl (9-20); Calcium 7.7 mg/dl (8.4-10.2); Carbon Dioxide 19 mmol/L (22.0-30.0); Chloride 114 mmol/L (98-107); Estimated Glomerular Filt Rate 17 ml/min (>60); GFR (African American) 20 ML/MIN (>60); Glucose 110 mg/dl (74-100); MANUAL DIFFERENTIAL MANUAL DIFFERENTIAL (MANUAL DIFF); Potassium 4.2 mmoL/L (3.5-5.1); Sodium 136 mmol/L (136-145)
[2022-06-01 12:51] LABS: 25-OH Vitamin D, Total < 12.8 ng/mL (30-100)
[2022-06-01 13:34] LABS: Lymphocytes % 72 % (10-50); Monocytes % 3 % (2-9); Neutrophils % 25 % (42-76); Platelet Estimate Slight Decrease; RBC Morphology Normal; Total Cells Counted 100
[2022-06-01 13:35] LABS: Differential Comment SEE COMMEN
== END ==
PROVIDERS: Internal Medicine Nephrology; PCP Internal Medicine Adolescent Medicine; Visit Provider Psychiatry & Neurology Neurology
DX: N18.5 Chronic kidney disease, stage 5 (principal); D63.1 Anemia in chronic kidney disease; I10 Essential (primary) hypertension; E87.20 Acidosis, unspecified; R80.9 Proteinuria, unspecified
CPT/HCPCS: 36415; 80069; 82306; 85007; 85025

== ENCOUNTER → 2022-06-03 14:53 | Outpatient (POV) | payer MEDICARE, BC, SELFPAY | PROVIDERS: Visit Provider Internal Medicine Nephrology | DX: Z00.00 Encounter for general adult medical examination without abnormal findings (principal) ==

== ENCOUNTER → 2022-08-02 12:43 | Outpatient (CLI) | payer MEDICARE, BC, SELFPAY ==
[2022-08-02 12:51] LABS: Microscopic, Urine URINE MICROSCOPIC (MICROSCOPIC)
[2022-08-02 13:23] LABS: Basophils # 0.4 K/mm3 (0-0.2); Basophils % 0.8 % (0.1-2.0); Eosinophils # 0.1 K/mm3 (0.0-0.4); Eosinophils % 0.2 % (0.1-12.0); Hematocrit 28.3 % (42.0-52.0); Hemoglobin 9.2 g/dL (14.1-18.0); Lymphocytes # 46.6 K/mm3 (0.7-4.5); Lymphocytes % 88.2 % (10-50); Mean Corpuscular HGB Conc 32.4 g/dL (31.8-35.4); Mean Corpuscular Hemoglobin 27.8 pg (27.0-31.2); Mean Corpuscular Volume 85.8 fl (80-94); Mean Platelet Volume 8.1 fl (7.4-10.4); Monocytes # 0.5 K/mm3 (0.1-1.0); Neutrophils # 5.2 K/mm3 (1.8-7.8); Platelet Count 120 K/mm3 (142-424); Red Cell Distribution Width 16.8 % (11.5-17.5)
--- NOTE | 2022-08-02 13:23 | PC.NURSE ---
1323-Salina myers mlt called rn at 1323 to report critical wbc level 52.8. Rn repeated and verified pt name,, and lab value. REsult called to and no new orders received.
[2022-08-02 13:25] LABS: Neutrophils % 9.9 % (37.0-80.0)
[2022-08-02 13:26] LABS: White Blood Count 52.8 K/mm3 (4.8-10.8)
[2022-08-02 13:27] LABS: MANUAL DIFFERENTIAL MANUAL DIFFERENTIAL (MANUAL DIFF)
[2022-08-02 13:32] LABS: Chloride 99 mmol/L (98-107)
[2022-08-02 13:33] LABS: Potassium 3.5 mmoL/L (3.5-5.1); Sodium 137 mmol/L (136-145)
[2022-08-02 13:35] LABS: Alanine Aminotransferase 14 U/L (12-78); Alkaline Phosphatase 74 U/L (38-126); Anion Gap 15.5 mEq/L (5-15); Aspartate Amino Transferase 20 U/L (17-59); Bilirubin,Total 0.3 mg/dl (0.2-1.3); Blood Urea Nitrogen 34 mg/dl (9-20); Carbon Dioxide 26 mmol/L (22.0-30.0); Estimated Glomerular Filt Rate 16 ml/min (>60); GFR (African American) 19 ML/MIN (>60)
[2022-08-02 13:36] LABS: Albumin Level 2.7 g/dl (3.5-5.0); Albumin/Globulin Ratio 1.1 (1.1-1.8); Calcium 7.5 mg/dl (8.4-10.2); Globulin 2.5 g/dL (1.3-3.2); Glucose 114 mg/dl (74-100); Total Protein,Serum 5.2 g/dl (6.3-8.2)
[2022-08-02 13:41] LABS: Appearance,Urine CLEAR (Clear); Bilirubin,Urine Negative (Negative); Blood, Urine 2+ (Negative); Color,Urine YELLOW (Yellow); Glucose,Urine (UA) TRACE (Negative); Ketones,Urine Negative (Negative); Leukocyte Esterase,Urine Negative (Negative); Nitrate,Urine Negative (Negative); Protein,Urine 3+ (Negative); Urobilinogen,Urine 0.2 EU/dl (0.2)
[2022-08-02 13:56] LABS: Bacteria,Urine Trace /lpf; Squamous Epithelial Cell,Urine Occasional #/hpf (0-5)
[2022-08-02 14:48] LABS: Lymphocytes % 90 % (10-50); Monocytes % 1 % (2-9); Neutrophils % 9 % (42-76); RBC Morphology Normal; Total Cells Counted 100
[2022-08-02 14:49] LABS: Platelet Estimate Slight Decrease
[2022-08-03 11:39] LABS: Phosphorous 4.2 mg/dl (2.5-4.5)
== END ==
PROVIDERS: Internal Medicine Medical Oncology; PCP Internal Medicine Adolescent Medicine; Visit Provider Internal Medicine Nephrology
DX: C91.11 Chronic lymphocytic leukemia of B-cell type in remission (principal); N18.5 Chronic kidney disease, stage 5
CPT/HCPCS: 36415; 80053; 81001; 84100; 85007; 85025

== ENCOUNTER 2022-08-21 11:49 | Inpatient (IN) | payer MEDICARE, BC, SELFPAY ==
[2022-08-21] VITALS (17 sets, daily range): BP systolic 106–139; BP diastolic 56–71; PULSE 60–73; RESP 17–24; TEMP 36.4–36.6; O2SAT 87–99; BMI 22.3; BMI 22.1
--- NOTE | 2022-08-21 11:49 | ECG_ITS ---
APPROVED REPORT Exam: Resting ECG HR:70 bpm ECG Measurements Heart Rate 70 AXES NE 162 P 53 QRSd 90 QRS 49 QT 401 T 59 QTc 421 Conclusion SINUS RHYTHM NONSPECIFIC T-WAVE ABNORMALITY BORDERLINE ECG UNCONFIRMED REPORT Electronically signed by : Giorgio Regalado MD 08/22/2022 07:35:25
--- NOTE | 2022-08-21 11:55 | PC.NURSE ---
PT PLACED ON O2 AT 2L/NC UPON ASSESSMENT
--- NOTE | 2022-08-21 12:00 | PC.NURSE ---
DR HO AT BEDSIDE
--- NOTE | 2022-08-21 12:10 | PC.NURSE ---
XR AT BEDSIDE
--- NOTE | 2022-08-21 12:11 | XR_ITS ---
PROCEDURE INFORMATION: Exam: XR Chest Exam date and time: 08/21/2022 12:12 PM Age: 82 years old Clinical indication: Shortness of breath; Additional info: SOB TECHNIQUE: Imaging protocol: Radiologic exam of the chest. Views: 1 view. Total images: 1 COMPARISON: CR XR CHEST 2V 04/21/2022 2:42 PM FINDINGS: Lungs: Unremarkable. No consolidation. Pleural spaces: Large left pleural effusion with near-complete opacification of the left hemithorax. Underlying infiltrative changes can not be excluded. Small right pleural effusion. Heart/Mediastinum: Cardiac margins are obscured. Bones/joints: The thoracic spine demonstrates mild degenerative changes at multiple levels. Soft tissues: The patient's chin overlies the lung apices. IMPRESSION: 1. Large left pleural effusion with near-complete opacification of the left hemithorax. Underlying infiltrative changes can not be excluded. 2. Small right pleural effusion.
[2022-08-21 12:19] LABS: Chloride 91 mmol/L (98-107); Sodium 137 mmol/L (136-145)
[2022-08-21 12:20] LABS: Potassium 3.5 mmoL/L (3.5-5.1)
[2022-08-21 12:22] LABS: Alanine Aminotransferase 29 U/L (12-78); Albumin/Globulin Ratio 0.9 (1.1-1.8); Alkaline Phosphatase 67 U/L (38-126); Anion Gap 21.5 mEq/L (5-15); Aspartate Amino Transferase 31 U/L (17-59); Bilirubin,Total 0.3 mg/dl (0.2-1.3); Blood Urea Nitrogen 59 mg/dl (9-20); Carbon Dioxide 28 mmol/L (22.0-30.0); Creatinine Clearance Estimated 12 mL/min (50-200); Estimated Glomerular Filt Rate 12 ml/min (>60); GFR (African American) 14 ML/MIN (>60); Globulin 3.2 g/dL (1.3-3.2); Total Protein,Serum 6.2 g/dl (6.3-8.2)
[2022-08-21 12:23] LABS: Calcium 7.9 mg/dl (8.4-10.2); Glucose 163 mg/dl (74-100)
[2022-08-21 12:25] LABS: INR 1.09 (0.9-1.1); Prothrombin Time 11.7 seconds (10.1-12.5)
--- NOTE | 2022-08-21 12:25 | CT_ITS ---
PROCEDURE INFORMATION: Exam: CT Chest Without Contrast; Diagnostic Exam date and time: 08/21/2022 12:50 PM Age: 82 years old Clinical indication: Pain; Shortness of breath; Chest pressure; Additional info: SOB, L pleural effusion TECHNIQUE: Imaging protocol: Diagnostic computed tomography of the chest without contrast. Total images: 303 Radiation optimization: All CT scans at this facility use at least one of these dose optimization techniques: automated exposure control; mA and/or kV adjustment per patient size (includes targeted exams where dose is matched to clinical indication); or iterative reconstruction. REPORTING DATA: Count of CT and Cardiac NM exams in prior 12 months: This patient has received 0 known CTs and 0 known cardiac nuclear medicine studies in the 12 months prior to the current study. COMPARISON: CT CHEST WO CON 12/15/2020 7:44 AM FINDINGS: Limitations: Examination limited by the lack of IV contrast. Lungs: Patchy airspace opacification noted within the left upper lobe and right lower lobe consistent with developing infiltrative changes. Pleural spaces: Large left pleural effusion with near complete opacification of the left hemithorax. Right pleural effusion. No evidence of pneumothorax. Heart: Unremarkable. No cardiomegaly. No pericardial effusion. Coronary arteries: There is moderate atherosclerotic calcification of the coronary arteries. Lymph nodes: Unremarkable. No enlarged lymph nodes. Vasculature: Mild atherosclerotic disease. Bones/joints: The thoracic spine demonstrates mild degenerative changes at multiple levels. Soft tissues: Unremarkable. IMPRESSION: 1. Large left pleural effusion with near complete opacification of the left hemithorax. 2. Patchy airspace opacification noted within the left upper lobe and right lower lobe consistent with developing infiltrative changes. 3. Right pleural effusion. 4. No evidence of pneumothorax.
[2022-08-21 12:26] LABS: Basophils # 3.2 K/mm3 (0-0.2); Basophils % 2.3 % (0.1-2.0); Eosinophils # 0.1 K/mm3 (0.0-0.4); Hematocrit 31.5 % (42.0-52.0); Hemoglobin 9.9 g/dL (14.1-18.0); Lymphocytes % 81.8 % (10-50); Mean Corpuscular HGB Conc 31.4 g/dL (31.8-35.4); Mean Corpuscular Hemoglobin 27.7 pg (27.0-31.2); Mean Corpuscular Volume 87.9 fl (80-94); Monocytes # 1.2 K/mm3 (0.1-1.0); Monocytes % 0.9 % (1.7-9.3); Neutrophils # 23.7 K/mm3 (1.8-7.8); Neutrophils % 17.3 % (37.0-80.0); Platelet Count 278 K/mm3 (142-424); Red Blood Count 3.58 M/mm3 (4.60-6.20); Red Cell Distribution Width 16.6 % (11.5-17.5)
--- NOTE | 2022-08-21 12:26 | PC.NURSE ---
DR HO AT BEDSIDE TO UPDATE PT AND FAMILY
[2022-08-21 12:31] LABS: White Blood Count 136.9 K/mm3 (4.8-10.8)
[2022-08-21 12:32] LABS: NT Pro Brain Natriuretic Pep. 15400 pg/mL (0-450)
[2022-08-21 12:33] LABS: MANUAL DIFFERENTIAL MANUAL DIFFERENTIAL (MANUAL DIFF)
[2022-08-21 12:35] LABS: Troponin I 0.05 ng/ml (0.00-0.034)
[2022-08-21 12:40] LABS: Differential Comment PN; Hypochromasia 2+; Lymphocytes % 60 % (10-50); Monocytes % 1 % (2-9); Neutrophils % 15 % (42-76); Total Cells Counted 100
[2022-08-21 12:41] LABS: Anisocytosis 1+; Platelet Estimate Normal
--- NOTE | 2022-08-21 12:47 | PC.NURSE ---
PT TO CT
--- NOTE | 2022-08-21 12:54 | PC.NURSE ---
PT RETURNED FROM CT
--- NOTE | 2022-08-21 12:55 | HMH.EDGENADL ---
Discharge Plan Disposition Patient Disposition: Admitted As Inpatient Condition: Fair Chief Complaint: Shortness of Breath/Dyspnea Clinical Impressions Clinical Impression: Acute respiratory failure, Chronic lymphocytic leukemia, Large pleural effusion Discharge ED Provider: Oscar Yarbrough General Adult HPI General Chief complaint: Shortness of Breath/Dyspnea Stated complaint: chest pain Time Seen by Provider: 08/21/22 11:57 Mode of Arrival: Wheelchair Limitations: No Limitations Description of Symptoms (Recalled from ER Triage Doc. by RN): PT WITH C/O INCREASED SHORTNESS OF BREATH AND LEFT SIDED CHEST TIGHTNESS THAT BECAME WORSE TODAY. FAMILY REPORTS NO URINARY OUTPUT SINCE 0000 LAST NIGHT, RECENTLY PCP INCREASED LASIX TO 80MG BID. History of Present Illness HPI narrative: 82yo M evaluated for chest pressure and shortness of breath. Reports this been ongoing for a few days. No radiation of pain. No nausea. No diaphoresis. No history of heart attack, stroke. Discontinued from baby aspirin by PCP recently. Patient has a history of CLL. Reports he has renal failure as well and is taking 80 mg of Lasix twice daily with scant urine output. Related Data Home Medications Medication Instructions Recorded Confirmed allopurinol 300 mg tablet 300 mg PO ONCE gout 09/19/17 02/08/22 verapamil 240 mg 24 hr 240 mg PO QAM High blood pressure 09/19/17 02/08/22 capsule,extended release simvastatin 40 mg tablet 40 mg PO QHS Cholesterol 09/11/18 02/08/22 losartan 100 mg tablet 100 mg PO DAILY High blood pressure 04/14/20 02/08/22 vitamins A,C,C-vzum-qmexlu 4,296 1 each PO DAILY eyes 04/16/20 02/08/22 mcg-226 mg-90 mg capsule carvedilol 25 mg tablet 25 mg PO ONCE 08/20/21 02/08/22 furosemide 40 mg tablet 40 mg PO DAILY 08/20/21 02/08/22 nifedipine 90 mg tablet,extended 90 mg PO DAILY PRN 08/20/21 02/08/22 release clonidine HCl 0.1 mg tablet 0.1 mg PO DAILY 02/08/22 02/08/22 Allergies Allergy/AdvReac Type Severity Reaction Status Date / Time No Known Allergies Allergy Verified 02/08/22 12:51 [facility] Disclaimer: The information contained in this section may have been updated after the patient was seen, as this information can be updated by other users. Medical History Anemia Social History Smoking Status: Never smoker alcohol intake: current counseling provided: none substance use type: denies use current occupational status: retired Travel in the last 8 weeks: None household members: spouse housing: house caffeine: Yes ROS Obtained: Yes Systems reviewed as appropriate & no additional complaints except as documented Physical Exam General General appearance: alert and in distress (Mild respiratory) Head Head exam: atraumatic Eye Eye exam: Present normal appearance Neck Neck exam: Present trachea midline Chest Chest inspection: Present symmetric chest wall rise Respiratory Respiratory exam: Present respiratory distress (Mild. 2 L nasal cannula required. Decreased respiratory sounds left side) Cardiovascular Cardiovascular exam: Present regular rate and normal heart sounds Abdominal Exam Abdominal exam: Present soft and normal bowel sounds; Absent distention or tenderness Extremities Exam Extremities exam: Present edema (2+ bilateral lower extremity) Back Exam Back exam: Present normal inspection Neurological Exam Neurological exam: Present alert, oriented X3 and CN II-XII intact Psychiatric Psychiatric exam: Present normal affect Skin Skin exam: Present dry Medical Decision Making Medical Records Medical records reviewed: Yes I reviewed the patient's medical records. [place] Inquiry Pt receiving controlled substance: No Vital Signs: 08/21/22 11:51 08/21/22 12:00 08/21/22 12:30 Temperature 97.6 F Temperature Source Oral Pulse Rate 68 68 Pulse Rate [Apical] 73
--- NOTE | 2022-08-21 13:11 | PC.NURSE ---
DR HO AT BEDSIDE TO UPDATE PT AND FAMILY
--- NOTE | 2022-08-21 13:22 | PC.NURSE ---
CONSENT SIGNED BY AT THIS TIME
--- NOTE | 2022-08-21 14:16 | XR_ITS ---
PROCEDURE INFORMATION: Exam: XR Chest Exam date and time: 08/21/2022 2:18 PM Age: 82 years old Clinical indication: Device placement; Chest tube; Additional info: Chest tube placement TECHNIQUE: Imaging protocol: Radiologic exam of the chest. Views: 1 view. Total images: 2 COMPARISON: CT CHEST WO CON 08/21/2022 12:50 PM FINDINGS: Tubes, catheters and devices: Left-sided chest tube is in place. Lungs: Patchy airspace opacity noted within the left upper lobe and right lower lobe. Pleural spaces: Large left pleural effusion with near-complete opacification of the left hemithorax is again noted. Right pleural effusion. Heart/Mediastinum: Cardiac margins are obscured. Bones/joints: The thoracic spine demonstrates mild degenerative changes at multiple levels. IMPRESSION: 1. Left-sided chest tube is in place. 2. Large left pleural effusion with near-complete opacification of the left hemithorax is again noted. 3. Patchy airspace opacity noted within the left upper lobe and right lower lobe. 4. Right pleural effusion.
--- NOTE | 2022-08-21 14:28 | PC.NURSE ---
rad at for cxr
--- NOTE | 2022-08-21 14:36 | PC.NURSE ---
waiting organic extractions technician back from dr. delgadillo
--- NOTE | 2022-08-21 14:39 | PC.NURSE ---
ALEJANDRO HORNE speaking Dr. Walker who is production floater for dr. Regalado
[2022-08-21 14:42] LABS: Appearance,Body Fld. Cloudy; Mononuclear WBCs,Body Fluid 35 %; Polynuclear WBC,Body Fluid 65 %; RBC,Body Fluid 32 cells/uL (< 10 X 10^3); Source, Body Fld. Pleural Fluid; TNC,Body Fluid 4676 cells/uL (< 1000); Volume,Body Fld. 21 mL
--- NOTE | 2022-08-21 14:42 | PC.NURSE ---
DR HO AT BEDSIDE TO UPDATE PT AND FAMILY OF ADMISSION
[2022-08-21 14:47] LABS: Coronavirus 19, PCR Not Detected (NotDetected); Influenza A, PCR Not Detected (NotDetected); Influenza B, PCR Not Detected (NotDetected)
--- NOTE | 2022-08-21 14:50 | PC.NURSE ---
notified house builder of admission
--- NOTE | 2022-08-21 14:54 | PC.NURSE ---
1345 TIME OUT 128/66 72, 20,94% 2L/NC 1353 LOCAL LIDOCAINE PER MD 1355 INCISION 1356 INSERTION OF THORACENTESIS NEEDLE 1409 TIME OUT 1411 KETAMINE PER EMAR 147/67 95% 2L/NC 63 1416 129/68 96% 2L/NC 64 17, 24 WELSH CHEST TUBE INSERTED, SUTURED PER MD 1421 133/66 63 95% 2L/NC 1422 XR AT BEDSIDE PT TOLERATED WELL, SITE CLEAN AND DRY. PLEUREVAC SECURED TO FLOOR.
--- NOTE | 2022-08-21 15:33 | PC.NURSE ---
REPORT GIVEN TO Mabel WALLACE RN
[2022-08-21 16:03] LABS: Troponin I 0.05 ng/ml (0.00-0.034)
--- NOTE | 2022-08-21 16:09 | PC.NURSE ---
per JOHNATHAN Horne Dr. wants 1515 dose of heparin given and blood cultures drawn
--- NOTE | 2022-08-21 17:04 | PC.WOUNDNOTE ---
STAGE 2 PRESSURE SORE PRESENT TO UPPER R BUTTOCK. DRESSING APPLIED, PT WILL BE TURNED Q2H.
[2022-08-22] VITALS: BP 109/54; PULSE 53; RESP 18; TEMP 36.4
[2022-08-22 04:00] VITALS: BP 114/54; PULSE 63; RESP 20; TEMP 36.3; O2SAT 94; BMI 21.9
[2022-08-22 07:44] LABS: Basophils # 0.7 K/mm3 (0-0.2); Basophils % 0.8 % (0.1-2.0); Hematocrit 24.7 % (42.0-52.0); Lymphocytes # 65.5 K/mm3 (0.7-4.5); Lymphocytes % 80.9 % (10-50); Mean Corpuscular HGB Conc 31.8 g/dL (31.8-35.4); Mean Corpuscular Hemoglobin 27.5 pg (27.0-31.2); Mean Corpuscular Volume 86.5 fl (80-94); Mean Platelet Volume 7.6 fl (7.4-10.4); Monocytes # 0.8 K/mm3 (0.1-1.0); Neutrophils % 17.3 % (37.0-80.0); Platelet Count 198 K/mm3 (142-424); Red Blood Count 2.86 M/mm3 (4.60-6.20); Red Cell Distribution Width 15.6 % (11.5-17.5)
[2022-08-22 07:54] LABS: Alanine Aminotransferase 10 U/L (12-78); Albumin Level 2.5 g/dl (3.5-5.0); Albumin/Globulin Ratio 0.9 (1.1-1.8); Alkaline Phosphatase 61 U/L (38-126); Anion Gap 18.1 mEq/L (5-15); Aspartate Amino Transferase 18 U/L (17-59); Bilirubin,Total 0.2 mg/dl (0.2-1.3); Blood Urea Nitrogen 63 mg/dl (9-20); Calcium 7.2 mg/dl (8.4-10.2); Carbon Dioxide 30 mmol/L (22.0-30.0); Chloride 93 mmol/L (98-107); Creatinine Clearance Estimated 11 mL/min (50-200); Estimated Glomerular Filt Rate 12 ml/min (>60); GFR (African American) 14 ML/MIN (>60); Globulin 2.7 g/dL (1.3-3.2); Glucose 108 mg/dl (74-100); Potassium 3.1 mmoL/L (3.5-5.1); Sodium 138 mmol/L (136-145); Total Protein,Serum 5.2 g/dl (6.3-8.2)
[2022-08-22 07:56] LABS: Hemoglobin 7.8 g/dL (14.1-18.0); MANUAL DIFFERENTIAL MANUAL DIFFERENTIAL (MANUAL DIFF)
[2022-08-22 08:00] VITALS: BP 129/61; PULSE 64; RESP 16; TEMP 36.4; O2SAT 96
--- NOTE | 2022-08-22 08:52 | EXP.HP ---
History of Present Illness *Admission Date: 08/21/22 *Reason for visit:: Worsening dyspnea *History of present illness: 82-year-old male with history of CLL over the past 2 decades-has been followed at [facility] but is currently not undergoing active treatment. White blood cell counts have been above 80,000 for the past several years. He is also developed worsening renal insufficiency with severe chronic kidney disease-now stage V. Has declined dialysis and has decided to maintain a DNR status. Has been living at home with his , they have contemplated hospice care but have recently decided to go with home health therapy for some PT and also treatment for mild decubitus ulcer. However he became acutely short of air worse than baseline over the past couple of days and presented to the ER yesterday. He was found to have significant collapse of the left lung and after appropriate imaging thoracentesis was done by the ER with chest tube placed by the ER physician with 350 mL of fluid obtained and good relief of his symptoms. Admitted to hospital for further evaluation. This morning he states that his breathing is much better, has very minimal pain at the chest tube insertion site and feels much more comfortable. [facility] Disclaimer: The information contained in this section may have been updated after the patient was seen, as this information can be updated by other users. Medical History (Updated 08/22/22 @ 08:57 by Giorgio Regalado MD) Anemia Surgical History (Updated 08/21/22 @ 16:09 by Sharon Moy RN) History of bowel resection Hx of tonsillectomy Social History Smoking Status: Never smoker alcohol intake: current counseling provided: none substance use type: denies use current occupational status: retired Travel in the last 8 weeks: None household members: spouse housing: house caffeine: Yes Review of Systems Review of Systems Review of systems:: pertinent systems reviewed and negative unless documented below Meds Home Medications and Allergies Home Medications Medication Instructions Recorded Confirmed Type vitamins A,C,I-efzn-zdrdsp 4,296 1 each PO DAILY eyes 04/16/20 08/21/22 History mcg-226 mg-90 mg capsule carvedilol 25 mg tablet 25 mg PO ONCE HEART 08/20/21 08/21/22 History furosemide 40 mg tablet 80 mg PO BID Fluid 08/20/21 08/21/22 History nifedipine 90 mg tablet,extended 90 mg PO DAILY High blood pressure 08/20/21 08/21/22 History release clonidine HCl 0.1 mg tablet 0.1 mg PO DAILY High blood pressure 02/08/22 08/21/22 History diphenoxylate-atropine 2.5 1 tab PO BIDP PRN Diarrhea 08/21/22 08/22/22 History mg-0.025 mg tablet sodium bicarbonate 325 mg tablet 325 mg PO BID KIDNEYS 08/21/22 08/21/22 History New Prescriptions to Start Prescriptions: Allergies Allergy/AdvReac Type Severity Reaction Status Date / Time No Known Allergies Allergy Verified 02/08/22 12:51 Exam Data for Last 24 hours Vital signs and Labs for Last 24 Hours: Temp Pulse Resp BP Pulse Ox 97.6 F 64 16 129/61 96 08/22/22 08:00 08/22/22 08:00 08/22/22 08:00 08/22/22 08:00 08/22/22 08:00 Laboratory Results - last 24 hr 08/21/22 11:55: WBC 136.9 H*, RBC 3.58 L, Hgb 9.9 L, Hct 31.5 L, MCV 87.9, MCH 27.7, MCHC 31.4 L, RDW 16.6, Plt Count 278, MPV 8.0, Neut % (Auto) 17.3 L, Lymph % (Auto) 81.8 H, [place] % (Auto) 0.9 L, Eos % (Auto) 0.0 L, Baso % (Auto) 2.3 H, Neut # (Auto) 23.7 H, Lymph # (Auto) 112.0 H, [place] # (Auto) 1.2 H, Eos # (Auto) 0.1, Baso # (Auto) 3.2 H, Total Counted 100, Neutrophils % (Manual) 15 L, Lymphocytes % (Manual) 60 H, Atypical Lymphs % 24.0, Monocytes % (Manual) 1 L, Differential Comment Pn, Platelet Estimate Normal, Hypochromasia 2+, Anisocytosis 1+ 08/21/22 11:55: PT 11.7, INR 1.09 08/21/22 11:55: Sodium 137, Potassium 3.5, Chloride 91 L, Carbon Dioxide 28, Anion Gap 21.5 H, BUN 59 H, Creatinine
[2022-08-22 09:11] LABS: Anisocytosis 1+; Hypochromasia 1+; Lymphocytes % 79 % (10-50); Monocytes % 3 % (2-9); Neutrophils % 18 % (42-76); Ovalocytes 1+; Total Cells Counted 100
[2022-08-22 09:12] LABS: Platelet Estimate Normal
--- NOTE | 2022-08-22 09:30 | DIET.NUTRFU ---
RD consulted, patient is nutritionally compromised. Patient's labs reviewed: albumin 2.5L, BUN 68H, Cr 4.8H. Currently on regular diet with 25% consumed. Based on patients renal conditional adding additional protein is not recommended at this time. Current wt is 70.9kg, protein recommendations pre-HD are 0.8gm/kg=56gm protein. Will add 2 ensure daily to help meet needs providing 32gm protein if consumed. If meal intake improving may need to discontinue supplements dependent on renal fxn and POC
--- NOTE | 2022-08-22 10:05 | PC.NURSE ---
PATIENT STATED THAT SHE GAVE PATIENT HIS MORNING MEDICATIONS. PT HOME MEDICATIONS WHERE IN PILL ORGANIZER WITH LIST OF MEDICATIONS. [facility] MEDICATIONS WERE HELD THIS MORNING. DR CORDOVA WAS MADE AWARE AND HOME MEDICATIONS WERE LOCKED IN MED M[employer] AND [employer]AL TRANSPORT OPERATOR ROOM. PT AND EDUCATED ON DANGERS OF SELF ADMIN MEDICATIONS.
[2022-08-22 11:08] VITALS: BP 128/61; PULSE 64; RESP 18; TEMP 36.6; O2SAT 96
[2022-08-22 15:11] VITALS: BP 154/66; PULSE 71; RESP 18; TEMP 36.6; O2SAT 97
--- NOTE | 2022-08-22 18:43 | PC.NURSE ---
minimal drainage from chest tube this shift. one large loose bm this shift. remains on 2lnc. no acute changes.
[2022-08-22 19:28] LABS: Occult Blood,Stool Negative (Negative)
[2022-08-22 20:00] VITALS: BP 160/77; PULSE 80; RESP 22; TEMP 36.8; O2SAT 96; O2SAT 97
[2022-08-23] VITALS: BP 133/68; PULSE 69; RESP 20; TEMP 36.4; O2SAT 96
[2022-08-23 04:00] VITALS: BP 127/53; PULSE 65; RESP 20; TEMP 36.8; O2SAT 95; BMI 21.9
--- NOTE | 2022-08-23 06:44 | PC.NURSE ---
PT CONTINUES ON 2 L NC, TOLERATING WELL WITH SATS IN UPPER 90S. PT HAS HAD A TOTAL OF 140ML OUT OF CHEST TUBE T/O NIGHT. PT HAS NOT VOICED ANY C/O TO STAFF. FAMILY AT BEDSIDE, CALL LIGHT WITHIN REACH.
[2022-08-23 07:07] LABS: Blood Urea Nitrogen 64 mg/dl (9-20); Carbon Dioxide 28 mmol/L (22.0-30.0); Chloride 99 mmol/L (98-107); Creatinine Clearance Estimated 12 mL/min (50-200); Estimated Glomerular Filt Rate 12 ml/min (>60); GFR (African American) 14 ML/MIN (>60); Glucose 118 mg/dl (74-100); Sodium 136 mmol/L (136-145)
[2022-08-23 07:12] LABS: Basophils # 0.7 K/mm3 (0-0.2); Basophils % 0.9 % (0.1-2.0); Hematocrit 26.3 % (42.0-52.0); Hemoglobin 8.4 g/dL (14.1-18.0); Lymphocytes % 80.6 % (10-50); Mean Corpuscular HGB Conc 31.8 g/dL (31.8-35.4); Mean Corpuscular Hemoglobin 27.3 pg (27.0-31.2); Mean Corpuscular Volume 85.8 fl (80-94); Mean Platelet Volume 8.5 fl (7.4-10.4); Monocytes # 0.9 K/mm3 (0.1-1.0); Neutrophils # 15.1 K/mm3 (1.8-7.8); Neutrophils % 17.6 % (37.0-80.0); Platelet Count 211 K/mm3 (142-424); Red Blood Count 3.06 M/mm3 (4.60-6.20); Red Cell Distribution Width 15.7 % (11.5-17.5)
[2022-08-23 07:14] LABS: MANUAL DIFFERENTIAL MANUAL DIFFERENTIAL (MANUAL DIFF); White Blood Count 85.7 K/mm3 (4.8-10.8)
[2022-08-23 08:00] VITALS: BP 127/64; PULSE 68; RESP 20; TEMP 36.9; O2SAT 93
[2022-08-23 08:53] LABS: Lymphocytes % 84 % (10-50); Neutrophils % 16 % (42-76); Platelet Estimate Normal; RBC Morphology Normal; Total Cells Counted 100
--- NOTE | 2022-08-23 08:53 | EXP.ACUTE.PN ---
Subjective *Date: 08/23/22 *Time: 08:53 Interval history: Patient is comfortable, alert, pleasant. Has some pain when he moves around from his chest tube. Feels very tired Medical Exam Vital signs and Labs for Last 24 Hours: Vital Signs Temp Pulse Resp BP Pulse Ox 08/23/22 04:00 98.2 F 65 20 127/53 L 95 08/23/22 00:00 97.6 F 69 20 133/68 96 08/22/22 20:00 98.2 F 80 22 160/77 H 96 08/22/22 20:00 97 08/22/22 15:11 97.9 F 71 18 154/66 H 97 08/22/22 11:08 97.9 F 64 18 128/61 96 Intake and Output 08/22/22 08/23/22 08/23/22 19:59 03:59 11:59 Intake Total 360 / 360 Output Total 650 / 1240 200 / 1240 390 / 1240 Balance -290 / -880 -200 / -880 -390 / -880 Intake: Intake, Oral Amount 360 / 360 Output: Output, Urine Amount 650 / 1100 200 / 1100 250 / 1100 Output, Chest Tube Drainage 140 / 140 Amount Left Mid-Axillary Chest 140 / 140 Other: Number of Unmeasured Voids 0 0 1 Number of Bowel Movements 0 Weight 157 lb 2 oz Patient Weight 08/23/22 11:59 Weight 157 lb 2 oz Laboratory Results - last 24 hr 08/22/22 07:02: Total Counted 100, Neutrophils % (Manual) 18 L, Lymphocytes % (Manual) 79 H, Monocytes % (Manual) 3, Platelet Estimate Normal, RBC Morphology Not Reportable, Hypochromasia 1+, Anisocytosis 1+, Ovalocytes 1+ 08/22/22 17:30: Stool Occult Blood Negative 08/23/22 06:25: WBC 85.7 H*, RBC 3.06 L, Hgb 8.4 L, Hct 26.3 L, MCV 85.8, MCH 27.3, MCHC 31.8, RDW 15.7, Plt Count 211, MPV 8.5, Neut % (Auto) 17.6 L, Lymph % (Auto) 80.6 H, [place] % (Auto) 1.0 L, Eos % (Auto) 0.0 L, Baso % (Auto) 0.9, Neut # (Auto) 15.1 H, Lymph # (Auto) 69.0 H, [place] # (Auto) 0.9, Eos # (Auto) 0.0, Baso # (Auto) 0.7 H 08/23/22 06:25: Sodium 136, Potassium 3.0 L, Chloride 99, Carbon Dioxide 28, Anion Gap 12.0, BUN 64 H, Creatinine 4.80 H, Estimated Creat Clear 12, Estimated GFR 12 L*, Est GFR ( Amer) 14 L*, Glucose 118 H, Calcium 7.0 L I & O for Labs for Last 24 Hours: Intake & Output 08/20/22 08/21/22 08/22/22 08/23/22 11:59 11:59 11:59 11:59 Intake Total 480 / 480 360 / 360 Output Total 1250 / 1250 1240 / 1240 Balance -770 / -770 -880 / -880 Weight 160 lb 156 lb 6.4 oz 157 lb 2 oz Microbiology Reports for the Last 24 Hours: Microbiology 08/21/22 14:01 Thoracic Fluid Gram Stain - Final 08/21/22 14:01 Thoracic Fluid Body Fluid Culture - Preliminary NO GROWTH AFTER 24 HOURS Comment:: Chest tube in good position. Drainage noted in the tubing. Good air movement. Still has diminished air sounds in the left lower lung base. Heart rate regular. Pleasant, alert, pale and chronically ill-appearing but oriented x3. Ankle edema still improving over his baseline Assessment and Plan *Assessment and plan (1) Large pleural effusion: Status: Acute Category: Medical Code(s): J90 - Pleural effusion, not elsewhere classified (2) Anemia: Status: Acute Category: Medical Code(s): D64.9 - Anemia, unspecified (3) Acute respiratory failure: Status: Acute Category: Medical Code(s): J96.00 - Acute respiratory failure, unspecified whether with hypoxia or hypercapnia (4) Chronic lymphocytic leukemia: Status: Acute Category: Medical Code(s): C91.10 - Chronic lymphocytic leukemia of B-cell type not having achieved remission (5) CLL (chronic lymphocytic leukemia): Status: Acute Category: Medical Code(s): C91.10 - Chronic lymphocytic leukemia of B-cell type not having achieved remission (6) Chronic kidney disease (CKD) stage G5/A1, glomerular filtration rate (GFR) less than or equal to 15 mL/min/1.73 square meter and albuminuria creatinine ratio less than 30 mg/g: Status: Acute Category: Medical Code(s): N18.5 - Chronic kidney disease, stage 5 (7) Hypokalemia: Status: Acute Category: Medical C
--- NOTE | 2022-08-23 09:43 | EXP.PULM.CON ---
History of Present Illness History of present illness: 82-year-old male history of CLL monitoring clinically with no treatments, history of SCC head and neck, follows at follow Dr. Person, stage IV-V kidney disease refused dialysis no significant prior respiratory complaints presented with worsening respiratory distress and found to large pleural effusion pulmonary was called for further evaluation. [facility] Disclaimer: The information contained in this section may have been updated after the patient was seen, as this information can be updated by other users. Medical History (Updated 08/23/22 @ 11:34 by Gómez Bryan MD) Acute respiratory failure with hypoxia Anemia Pneumonia Surgical History (Updated 08/21/22 @ 16:09 by Sharon Moy, JOHNATHAN) History of bowel resection Hx of tonsillectomy Social History Smoking Status: Never smoker alcohol intake: current counseling provided: none substance use type: denies use current occupational status: retired Travel in the last 8 weeks: None household members: spouse housing: house caffeine: Yes Review of Systems Constitutional Constitutional: Reports anorexia, Reports body ache(s) and Reports fatigue Eyes Eyes: Denies eye discharge, Denies dry eyes, Denies irritation and Denies itchy eyes ENT Ears, Nose, Mouth, and Throat: Denies epistaxis, Denies facial pain, Denies lip swelling and Denies throat swelling *Cardiovascular Cardiovascular: Reports dyspnea, Reports dyspnea on exertion and Reports leg edema *Respiratory Respiratory: Reports chest congestion, Reports cough, Reports dyspnea, Reports dyspnea on exertion, Denies excessive phlegm production, Denies hemoptysis and Denies wheezing *Gastrointestinal Gastrointestinal: Denies abdominal pain, Denies belching and Denies cramping *Musculoskeletal Musculoskeletal: Reports back pain, Reports myalgias and Reports other (No small joint swelling or Pain) Psychiatric Psychiatric: Denies homicidal ideation and Denies suicidal ideation Endocrine Endocrine: Reports fatigue and Denies heat intolerance Hematologic/Lymphatic Hematologic/Lymphatic: Denies easy bleeding and Denies lymphadenopathy Allergic/Immunologic Allergic/Immunologic: Denies itchy eyes, Denies lip swelling, Denies throat swelling and Denies wheezing Pulmonology Exam Inpatient Vital signs and Labs for Last 24 Hours: Temp Pulse Resp BP Pulse Ox 98.4 F 68 20 127/64 93 L 08/23/22 08:00 08/23/22 08:00 08/23/22 08:00 08/23/22 08:00 08/23/22 08:00 Laboratory Results - last 24 hr 08/22/22 17:30: Stool Occult Blood Negative 08/23/22 06:25: WBC 85.7 H*, RBC 3.06 L, Hgb 8.4 L, Hct 26.3 L, MCV 85.8, MCH 27.3, MCHC 31.8, RDW 15.7, Plt Count 211, MPV 8.5, Neut % (Auto) 17.6 L, Lymph % (Auto) 80.6 H, [place] % (Auto) 1.0 L, Eos % (Auto) 0.0 L, Baso % (Auto) 0.9, Neut # (Auto) 15.1 H, Lymph # (Auto) 69.0 H, [place] # (Auto) 0.9, Eos # (Auto) 0.0, Baso # (Auto) 0.7 H, Total Counted 100, Neutrophils % (Manual) 16 L, Lymphocytes % (Manual) 84 H, Platelet Estimate Normal, RBC Morphology Normal 08/23/22 06:25: Sodium 136, Potassium 3.0 L, Chloride 99, Carbon Dioxide 28, Anion Gap 12.0, BUN 64 H, Creatinine 4.80 H, Estimated Creat Clear 12, Estimated GFR 12 L*, Est GFR ( Amer) 14 L*, Glucose 118 H, Calcium 7.0 L I & O for Labs for Last 24 Hours: Intake & Output 08/20/22 08/21/22 08/22/22 08/23/22 23:59 23:59 23:59 23:59 Intake Total 240 / 240 600 / 600 Output Total 820 / 820 1280 / 1280 390 / 390 Balance -580 / -580 -680 / -680 -390 / -390 Weight 158 lb 3 oz 156 lb 6.4 oz 157 lb 2 oz Microbiology Reports for the Last 24 Hours: Microbiology 08/21/22 14:01 Thoracic Fluid Gram Stain - Final 08/21/22 14:01 Thoracic Fluid Body Fluid Culture - Preliminary NO GROWTH AFTER 24 HOURS Constitutional: Present moderate distress Head: Present normocephalic and atra
--- NOTE | 2022-08-23 09:45 | XR_ITS ---
FINAL REPORT CLINICAL HISTORY: Effusion COMPARISON: August 21, 2022 FINDINGS: A left-sided chest tube is present. The heart size is normal. The mediastinum is within normal limits. There is a large left pleural effusion. There are bilateral pulmonary opacities. There is no pneumothorax. The bony thorax is intact. IMPRESSION: Bilateral pulmonary opacities could represent atelectasis or pneumonia. Large left pleural effusion with left chest tube in place. Reviewed, Interpreted and Dictated by Maynor Brandon III, MD Transcribed by Bill Man Authenticated and [facility]
[2022-08-23 11:13] VITALS: BMI 21.9
--- NOTE | 2022-08-23 11:34 | HMH.PTEV ---
Physical Therapy Evaluation Rehab PT IP Evaluation Start: 08/23/22 08:39 Freq: ONCE Status: Active Protocol: Document 08/23/22 11:20 ROBBINBUCK (Rec: 08/23/22 11:34 VELMA [id number]) Subjective/History History History Pt is a 82 year old male that presented to the ED on 2022 with increasing shortness of air. Pt was found to have a collapsed left lung. A thoracentesis was done by the ER with chest tube placed by the ER physician with 350 mL of fluid obtained and good relief of his symptoms. Pt was admitted to hospital for further evaluation. PMH: CLL, anemia, CKD At baseline, pt lives at home with his and ambulates with a rolling walker. Pt and family have debated hospice care but have decided to pursue HHPT. Subjective Subjective Pt presents seated upright in bed with at side, pleasant and agreeable to therapy initial evaluation. Pt reports he has not slept much the past 2 nights. Pt performed supine to sit on EOB with min A for placement of BLE's off EOB. Pt performed sit to stand from EOB with min A x2. Pt able to maintain static stance for ~2-3 minutes with subjective reports of dizziness. Pt requested to return to sitting due to fatigue. Rehab PT IP Eval Objective Appearance Patient Behavior Appropriate Patient Orientation Person,Place,Time,Situation Difficulty following instructions none Speech Pattern Clear,Appropriate Ambulation Patient Able to Ambulate No Balance Ability to Arise Able, uses arms to help Sitting Balance Steady, safe Standing Balance Narrow stance w/o support Dynamic Sitting Balance Ability Fair Dynamic Standing Balance Ability Fair Transfers Bed Transfer Ability Minimal x 1 (25% assist) Sit to Stand Bed Transfer Ability Minimal x 2 (25% assist) ROM RL
--- NOTE | 2022-08-23 11:47 | HMH.PTWOUND ---
Rehab Inpt Wound Evaluation Rehab IP Wound Evaluation Start: 08/22/22 08:49 Freq: DAILYP Status: Active Protocol: Document 08/23/22 11:35 VELMA (Rec: 08/23/22 11:47 ROBBINBUCK [id number]) Rehab PT Wound Assessment Subjective Subjective Pt presents sitting upright in bed with at side, pleasant and agreeable to evaluation. Wound Sacrum Wound Type Pressure Ulcer Is This a Chronic Wound Yes Wound Staging Stage II Query Text:Stage I - Unbroken, red skin, no blanching. Stage II - Skin broken, superficial skin loss involving epidermis alone or also dermis. Partial loss of skin layers. Stage III - Pressure area involves epidermis, dermis and subcutaneous tissue, full thickness skin loss. Stage IV - Pressure area involves epidermis, subcutaneous tissue, bone and other supportive tissue. Full thickness skin loss with extensive destruction of underlying tissue and structures. Wound Length (cm) 0.5 Wound Width (cm) 0.5 Wound Depth (cm) 0.1 Wound Bed Appearance White Wound Margins Description Well Defined Surrounding Tissue Appearance Dark Red,Purple Dressing Status Changed Primary Dressing Composite Comment bordered foam dressing Dressing Change Patient Tolerance Tolerated Well Plan/Recommendation Comment Nursing to continue dressing changes as previously performed as needed. Eval Complexity Eval Charge Codes 59252 - Low Complexity PHYSICIAN CERTIFICATION: I certify the specified therapy services for Salomón Franco are required, authorized, and reviewed every 30 days.
[2022-08-23 12:00] VITALS: BP 124/55; PULSE 60; RESP 20; TEMP 36.5; O2SAT 92
--- NOTE | 2022-08-23 14:05 | XR_ITS ---
FINAL REPORT CLINICAL HISTORY: increased oxygen needs COMPARISON: 4 hours prior FINDINGS: A left chest tube is again seen. The heart size is normal. The mediastinum is within normal limits. There is a large left pleural effusion. There is a small but worsening right pleural effusion. There is worsening right basilar opacity favoring atelectasis. There is no pneumothorax. The bony thorax is intact. IMPRESSION: Large left pleural effusion with left-sided chest tube. Small but worsening right pleural effusion with worsening right basilar opacity favoring atelectasis. Reviewed, Interpreted and Dictated by Maynor Brandon III, MD Transcribed by Bill Man Authenticated and . [facility]
--- NOTE | 2022-08-23 14:07 | PC.WOUNDNOTE ---
pt has increased needs for oxygen, increased to 4L NC at 86%-87%. Irvin notified, ordered duonebs and portable cxr.
--- NOTE | 2022-08-23 14:10 | PC.NURSE ---
RT increased from 4L to 6L, stating 86%.
--- NOTE | 2022-08-23 14:11 | PC.NURSE ---
pt has increased needs for oxygen, increased to 4L NC at 86%-87%. Annangi notified, ordered duonebs and portable cxr. RT increased from 4L to 6L.
[2022-08-23 15:59] VITALS: BP 125/63; PULSE 66; RESP 20; TEMP 36.6; O2SAT 94
--- NOTE | 2022-08-23 18:52 | PC.NURSE ---
pt has been pleasant today. got up to chair with pt/ot and tolerated it well. LS clear in right lobe, LS diminished in LLL. 2+ to 3+ pitting edema in LE. pt on 6L NC humidified stating at 98%. wbc elevated to 85.7. hgb 8.4. a & o x4. stage 2 wound on coccyx. Chest tube on left side, managed by Jeremiah. Jeremiah changed dressing and thoracic culture pending. 430ml drainage via chest tube, marked at 1670ml. pt c/o trouble sleeping, leona ordered ativan QHS PRN. c/o diarrhea, but no active diarrhea between [id number].
[2022-08-23 20:00] VITALS: BP 147/67; PULSE 78; RESP 16; TEMP 37.2; O2SAT 98
[2022-08-24] VITALS: BP 114/52; PULSE 68; RESP 16; TEMP 36.4; O2SAT 96
[2022-08-24 04:00] VITALS: BP 110/49; PULSE 59; RESP 16; TEMP 36.6; O2SAT 93; BMI 22.1
--- NOTE | 2022-08-24 05:46 | PC.NURSE ---
Pt asked for PO Ativan last night with 2100 meds, pt has slept well t/o night. Pt has removed nc in sleep a couple times and drops down to lower 80s. No other c/o to staff. at bedside, call light within reach.
[2022-08-24 06:28] LABS: Lactate Dehydrogenase 141 U/L (313-618)
[2022-08-24 08:00] VITALS: BP 114/50; PULSE 63; RESP 18; TEMP 36.6; O2SAT 93
--- NOTE | 2022-08-24 08:28 | EXP.ACUTE.PN ---
Subjective *Date: 08/24/22 *Time: 08:28 Interval history: Patient overall feels about the same, only has chest pain at the tube site when he coughs. Medical Exam Vital signs and Labs for Last 24 Hours: Vital Signs Temp Pulse Resp BP Pulse Ox 08/24/22 04:00 97.9 F 59 L 16 110/49 L 93 L 08/24/22 00:00 97.6 F 68 16 114/52 L 96 08/23/22 20:00 98 08/23/22 20:00 99.0 F 78 16 147/67 H 98 08/23/22 15:59 97.8 F 66 20 125/63 94 L 08/23/22 12:00 97.7 F 60 20 124/55 L 92 L Intake and Output 08/23/22 08/24/22 08/24/22 19:59 03:59 11:59 Intake Total 570 / 570 Output Total 430 / 860 430 / 860 Balance 140 / -290 -430 / -290 Intake: Intake, Oral Amount 420 / 420 Intake, Total IV Amount 150 / 150 Levofloxacin/D5w 750 mg/150 ml 150 / 150 750 mg In 150 ml @ 100 mls/hr IV 1100 [facility] Rx#:[id number] Output: Output, Urine Amount 200 / 200 Output, Chest Tube Drainage 430 / 660 230 / 660 Amount Left Mid-Axillary Chest 430 / 660 230 / 660 Other: Weight 158 lb 8 oz Patient Weight 08/24/22 11:59 Weight 158 lb 8 oz Laboratory Results - last 24 hr 08/23/22 06:25: Total Counted 100, Neutrophils % (Manual) 16 L, Lymphocytes % (Manual) 84 H, Platelet Estimate Normal, RBC Morphology Normal 08/24/22 05:21: Lactate Dehydrogenase 141 L I & O for Labs for Last 24 Hours: Intake & Output 08/21/22 08/22/22 08/23/22 08/24/22 11:59 11:59 11:59 11:59 Intake Total 480 / 480 600 / 600 570 / 570 Output Total 1250 / 1250 1340 / 1340 860 / 860 Balance -770 / -770 -740 / -740 -290 / -290 Weight 160 lb 156 lb 6.4 oz 157 lb 1.975 oz 158 lb 8 oz Microbiology Reports for the Last 24 Hours: Microbiology 08/21/22 14:01 Thoracic Fluid Gram Stain - Final 08/21/22 14:01 Thoracic Fluid Body Fluid Culture - Preliminary NO GROWTH AFTER 48 HOURS Comment:: Chest tube in good position. Drainage noted in the tubing. Good air movement. Still has diminished air sounds in the left lower lung base. Heart rate regular. Pleasant, alert, pale and chronically ill-appearing but oriented x3. Ankle edema still improving over his baseline Assessment and Plan *Assessment and plan (1) Large pleural effusion: Status: Acute Category: Medical Code(s): J90 - Pleural effusion, not elsewhere classified (2) Anemia: Status: Acute Category: Medical Code(s): D64.9 - Anemia, unspecified (3) Acute respiratory failure: Status: Acute Category: Medical Code(s): J96.00 - Acute respiratory failure, unspecified whether with hypoxia or hypercapnia (4) Chronic lymphocytic leukemia: Status: Acute Category: Medical Code(s): C91.10 - Chronic lymphocytic leukemia of B-cell type not having achieved remission (5) CLL (chronic lymphocytic leukemia): Status: Acute Category: Medical Code(s): C91.10 - Chronic lymphocytic leukemia of B-cell type not having achieved remission (6) Chronic kidney disease (CKD) stage G5/A1, glomerular filtration rate (GFR) less than or equal to 15 mL/min/1.73 square meter and albuminuria creatinine ratio less than 30 mg/g: Status: Acute Category: Medical Code(s): N18.5 - Chronic kidney disease, stage 5 (7) Hypokalemia: Status: Acute Category: Medical Code(s): E87.6 - Hypokalemia (8) Hypocalcemia: Status: Acute Category: Medical Code(s): E83.51 - Hypocalcemia Plan 1. Pleural effusion-status post chest tube placement-studies are pending in lab-I will ask Dr. Bryan to consult for chest tube management and evaluation/management of pleural effusion. 2. Anemia-no indication for transfusion at this point given chronic nature and lack of cardiovascular symptoms. 3. Respiratory failure-improved after evacuation of pleural effusion. 4. DEC-[id number] changes in plan.
--- NOTE | 2022-08-24 09:48 | XR_ITS ---
FINAL REPORT CLINICAL HISTORY: effusion COMPARISON: 08/23/2022 FINDINGS: SINGLE-VIEW CHEST The heart size is normal. The mediastinum is normal. Left-sided chest tube remains in place. There is a large left effusion, stable. Small right effusion is identified. There are persistent bilateral pulmonary opacities. There is no pneumothorax. IMPRESSION: No significant change. Reviewed, Interpreted and Dictated by Maynor Brandon III, MD Transcribed by Jada Schwartz Authenticated and [facility]
--- NOTE | 2022-08-24 09:56 | EXP.PULM.PN ---
Subjective *Date: 08/24/22 *Time: 11:05 Interval history: Patient denies any new respiratory complaints Pulmonology Exam Inpatient Vital signs and Labs for Last 24 Hours: Temp Pulse Resp BP Pulse Ox 97.9 F 63 18 114/50 L 93 L 08/24/22 08:00 08/24/22 08:00 08/24/22 08:00 08/24/22 08:00 08/24/22 08:00 Laboratory Results - last 24 hr 08/24/22 05:21: Lactate Dehydrogenase 141 L I & O for Labs for Last 24 Hours: Intake & Output 08/21/22 08/22/22 08/23/22 08/24/22 23:59 23:59 23:59 23:59 Intake Total 240 / 240 600 / 600 810 / 810 120 / 120 Output Total 820 / 820 1280 / 1280 920 / 920 430 / 430 Balance -580 / -580 -680 / -680 -110 / -110 -310 / -310 Weight 158 lb 3 oz 156 lb 6.4 oz 157 lb 1.975 oz 158 lb 8 oz Microbiology Reports for the Last 24 Hours: Microbiology 08/21/22 14:01 Thoracic Fluid Gram Stain - Final 08/21/22 14:01 Thoracic Fluid Body Fluid Culture - Preliminary NO GROWTH AFTER 48 HOURS Constitutional: Present moderate distress Head: Present normocephalic and atraumatic ENT: Present normal exam, normal oropharynx and mucous membranes moist Neck: Present normal inspection and full ROM Respiratory: Present respiratory distress, crackles, diminished air movement and able to speak in complete sentences; Absent wheezes Comment:: Continued to have decreased breath sounds left lung santana along with right lower lung santana. Improved aeration in the left upper lung santana Cardiac: Present S1/S2, Tachycardia and radial pulses present GI: Present soft and distention; Absent tenderness or guarding Skin: Present intact; Absent cyanosis or jaundice Neuro: Present alert, awake and oriented x 3 Extremities: Present normal inspection and edema; Absent clubbing or cyanosis Psychiatric: Present normal affect and cooperative Assessment and Plan *Assessment and plan (1) Large pleural effusion: Status: Acute Category: Medical Code(s): J90 - Pleural effusion, not elsewhere classified (2) Pneumonia: Status: Acute Category: Medical Code(s): J18.9 - Pneumonia, unspecified organism (3) Acute respiratory failure with hypoxia: Status: Acute Category: Medical Code(s): J96.01 - Acute respiratory failure with hypoxia Plan 82-year-old male history of CLL monitoring clinically with no treatments, history of SCC head and neck, follows at follow Dr. Person, stage IV-V kidney disease refused dialysis no significant prior respiratory complaints presented with worsening respiratory distress and found to large pleural effusion pulmonary was called for further evaluation. Patient also complains of worsening bilateral lower extremity edema that significant improved after his hospital admission. 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 Status post large bore chest tube placement on the left pleural space in the ER. Chest x-ray from April 2022 small left pleural effusion with no right effusion noted. Pleural fluid total nucleated count 4676 65% probably nuclear. No other labs available for review. Patient's current pleural effusions likely from CKD and volume overload and CLL at this point of time. Concomitant transformation cannot be completely ruled out. Interval update: Pleural fluid cultures negative. No significant improvement chest x-ray from yesterday. Continues to have large right pleural effusion. Symptom control chest tube tip above the fluid level. Retracted the chest tube by 7 cm. We will continue to follow. Will further determine the need for replacing the chest tube/performing a CT chest. Patient imaging leukocytosis otherwise stable. Currently increasing oxygen requirements. We will continue to monitor. Plan: -Incentive spirometry -F/U Pleural fluid studies including pleural fluid protein albumin LDH al
[2022-08-24 12:00] VITALS: BP 127/56; PULSE 62; RESP 16; TEMP 36.6; O2SAT 99
[2022-08-24 14:15] LABS: LD, Body Fluid 294 IU/L (.)
[2022-08-24 16:00] VITALS: BP 142/61; PULSE 75; RESP 20; TEMP 37.1; O2SAT 95
--- NOTE | 2022-08-24 16:33 | PC.NURSE ---
Pt had a good day. Got up with PT and sat in the chair from breakfast until after lunch. He has not complained of pain throughout the day. Pt is resting comfortable in bed this afternoon.
[2022-08-24 20:00] VITALS: BP 158/70; PULSE 70; RESP 17; TEMP 36.8; O2SAT 98
[2022-08-25] VITALS: BP 120/57; PULSE 73; RESP 17; TEMP 36.6; O2SAT 94
[2022-08-25 04:00] VITALS: BP 112/51; PULSE 59; RESP 16; TEMP 36.3; O2SAT 98; BMI 22.2
--- NOTE | 2022-08-25 06:00 | XR_ITS ---
PROCEDURE INFORMATION: Exam: XR Chest Exam date and time: 08/25/2022 5:40 AM Age: 82 years old Clinical indication: Device placement; Chest tube TECHNIQUE: Imaging protocol: Radiologic exam of the chest. Views: 1 view. COMPARISON: CR XR CHEST PORTABLE 08/24/2022 10:16 AM FINDINGS: Tubes, catheters and devices: Repositioned left thoracostomy tube terminates overlying the inferior left hemithorax. Lungs: Progressive and complete opacification of the left hemithorax, believed to be the result of combined airspace disease and pleural effusion. Interstitial prominence and right basilar airspace disease. Pleural spaces: Newly visualized radiolucency overlying the lateral right hemithorax, favoring skin fold over pneumothorax. Correlation with an erect end expiratory PA chest radiograph is recommended for improved characterization. Heart/Mediastinum: Leftward shift of the heart mediastinum. Bones/joints: Degenerative change. IMPRESSION: 1. Newly visualized radiolucency overlying the lateral right hemithorax, favoring skin fold over pneumothorax. Correlation with an erect end expiratory PA chest radiograph is recommended for improved characterization. 2. Progressive and complete opacification of the left hemithorax, believed to be the result of combined airspace disease and pleural effusion. 3. Additional findings as described above. The aforementioned findings initiated a critical results communication pathway. An addendum will be issued at the time of clincian notification.
--- NOTE | 2022-08-25 06:39 | PC.NURSE ---
Pt continues on 6 L nc tolerating well with sats >90. Pt has had 220ml out of chest tube this shift. at bedside, call light within reach.
[2022-08-25 08:00] VITALS: BP 121/55; PULSE 64; RESP 20; TEMP 36.6; O2SAT 95
--- NOTE | 2022-08-25 08:21 | EXP.ACUTE.PN ---
Subjective *Date: 08/25/22 *Time: 08:21 Interval history: Patient feels good, no changes overnight, slept well. Has some coughing and chest pain at the chest tube insertion site. Medical Exam Vital signs and Labs for Last 24 Hours: Vital Signs Temp Pulse Resp BP Pulse Ox 08/25/22 08:00 97.9 F 64 20 121/55 L 95 08/25/22 04:00 97.4 F L 59 L 16 112/51 L 98 08/25/22 00:00 94 L 08/25/22 00:00 97.9 F 73 17 120/57 L 94 L 08/24/22 20:00 98 08/24/22 20:00 98.2 F 70 17 158/70 H 98 08/24/22 16:00 98.8 F 75 20 142/61 H 95 08/24/22 12:00 97.8 F 62 16 127/56 L 99 Intake and Output 08/24/22 08/25/22 08/25/22 19:59 03:59 11:59 Intake Total 420 / 660 240 / 660 Output Total 330 / 950 300 / 950 320 / 950 Balance 90 / -290 -300 / -290 -80 / -290 Intake: Intake, Oral Amount 420 / 660 240 / 660 Output: Output, Urine Amount 300 / 400 100 / 400 Output, Chest Tube Drainage 330 / 550 220 / 550 Amount Left Mid-Axillary Chest 330 / 550 220 / 550 Other: Number of Voids 1 Number of Unmeasured Voids 0 0 Number of Bowel Movements 1 Weight 159 lb Patient Weight 08/25/22 11:59 Weight 159 lb Laboratory Results - last 24 hr 08/21/22 14:01: Fluid LDH 294 I & O for Labs for Last 24 Hours: Intake & Output 08/22/22 08/23/22 08/24/22 08/25/22 11:59 11:59 11:59 11:59 Intake Total 480 / 480 600 / 600 690 / 690 660 / 660 Output Total 1250 / 1250 1340 / 1340 860 / 860 950 / 950 Balance -770 / -770 -740 / -740 -170 / -170 -290 / -290 Weight 156 lb 6.4 oz 157 lb 1.975 oz 158 lb 8 oz 159 lb Microbiology Reports for the Last 24 Hours: Microbiology 08/21/22 06:50 Blood Blood Culture - Preliminary NO GROWTH AFTER 48 HOURS 08/21/22 06:50 Blood Blood Culture - Preliminary NO GROWTH AFTER 48 HOURS 08/23/22 15:00 Thoracic Fluid Body Fluid Culture - Preliminary NO GROWTH AFTER 24 HOURS 08/21/22 14:01 Thoracic Fluid Gram Stain - Final 08/21/22 14:01 Thoracic Fluid Body Fluid Culture - Preliminary NO GROWTH AFTER 72 HOURS Comment:: Chest tube in good position. Drainage noted in the tubing. Good air movement. Still has diminished air sounds in the left lower lung base. Heart rate regular. Pleasant, alert, pale and chronically ill-appearing but oriented x3. Ankle edema still improving over his baseline Assessment and Plan *Assessment and plan (1) Large pleural effusion: Status: Acute Category: Medical Code(s): J90 - Pleural effusion, not elsewhere classified (2) Anemia: Status: Acute Category: Medical Code(s): D64.9 - Anemia, unspecified (3) Acute respiratory failure: Status: Acute Category: Medical Code(s): J96.00 - Acute respiratory failure, unspecified whether with hypoxia or hypercapnia (4) Chronic lymphocytic leukemia: Status: Acute Category: Medical Code(s): C91.10 - Chronic lymphocytic leukemia of B-cell type not having achieved remission (5) CLL (chronic lymphocytic leukemia): Status: Acute Category: Medical Code(s): C91.10 - Chronic lymphocytic leukemia of B-cell type not having achieved remission (6) Chronic kidney disease (CKD) stage G5/A1, glomerular filtration rate (GFR) less than or equal to 15 mL/min/1.73 square meter and albuminuria creatinine ratio less than 30 mg/g: Status: Acute Category: Medical Code(s): N18.5 - Chronic kidney disease, stage 5 (7) Hypokalemia: Status: Acute Category: Medical Code(s): E87.6 - Hypokalemia (8) Hypocalcemia: Status: Acute Category: Medical Code(s): E83.51 - Hypocalcemia Plan 1. Pleural effusion-status post chest tube placement-studies are pending in lab-I will ask Dr. Bryan to consult for chest tube joel
--- NOTE | 2022-08-25 09:50 | EXP.PULM.PN ---
Subjective *Date: 08/25/22 *Time: 15:31 Interval history: Patient denies any respiratory complaints Pulmonology Exam Inpatient Vital signs and Labs for Last 24 Hours: Temp Pulse Resp BP Pulse Ox 97.9 F 64 20 121/55 L 95 08/25/22 08:00 08/25/22 08:00 08/25/22 08:00 08/25/22 08:00 08/25/22 08:00 Laboratory Results - last 24 hr 08/21/22 14:01: Fluid LDH 294 I & O for Labs for Last 24 Hours: Intake & Output 08/22/22 08/23/22 08/24/22 08/25/22 23:59 23:59 23:59 23:59 Intake Total 600 / 600 810 / 810 540 / 540 240 / 240 Output Total 1280 / 1280 920 / 920 960 / 1060 420 / 420 Balance -680 / -680 -110 / -110 -420 / -520 -180 / -180 Weight 156 lb 6.4 oz 157 lb 1.975 oz 158 lb 8 oz 159 lb Microbiology Reports for the Last 24 Hours: Microbiology 08/21/22 06:50 Blood Blood Culture - Preliminary NO GROWTH AFTER 48 HOURS 08/21/22 06:50 Blood Blood Culture - Preliminary NO GROWTH AFTER 48 HOURS 08/23/22 15:00 Thoracic Fluid Body Fluid Culture - Preliminary NO GROWTH AFTER 24 HOURS 08/21/22 14:01 Thoracic Fluid Gram Stain - Final 08/21/22 14:01 Thoracic Fluid Body Fluid Culture - Preliminary NO GROWTH AFTER 72 HOURS Constitutional: Present moderate distress Head: Present normocephalic and atraumatic ENT: Present normal exam, normal oropharynx and mucous membranes moist Neck: Present normal inspection and full ROM Respiratory: Present respiratory distress, crackles, diminished air movement and able to speak in complete sentences; Absent wheezes Comment:: Continued to have decreased breath sounds left lung santana along with right lower lung santana. Improved aeration in the left upper lung santana Cardiac: Present S1/S2, Tachycardia and radial pulses present GI: Present soft and distention; Absent tenderness or guarding Skin: Present intact; Absent cyanosis or jaundice Neuro: Present alert, awake and oriented x 3 Extremities: Present normal inspection and edema; Absent clubbing or cyanosis Psychiatric: Present normal affect and cooperative Assessment and Plan *Assessment and plan (1) Large pleural effusion: Status: Acute Category: Medical Code(s): J90 - Pleural effusion, not elsewhere classified (2) Pneumonia: Status: Acute Category: Medical Code(s): J18.9 - Pneumonia, unspecified organism (3) Acute respiratory failure with hypoxia: Status: Acute Category: Medical Code(s): J96.01 - Acute respiratory failure with hypoxia Plan 82-year-old male history of CLL monitoring clinically with no treatments, history of SCC head and neck, follows at follow Dr. Person, stage IV-V kidney disease refused dialysis no significant prior respiratory complaints presented with worsening respiratory distress and found to large pleural effusion pulmonary was called for further evaluation. Patient also complains of worsening bilateral lower extremity edema that significant improved after his hospital admission. 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 Status post large bore chest tube placement on the left pleural space in the ER. Chest x-ray from April 2022 small left pleural effusion with no right effusion noted. Pleural fluid total nucleated count 4676 65% probably nuclear. No other labs available for review. Patient's current pleural effusions likely from CKD and volume overload and CLL at this point of time. Concomitant transformation cannot be completely ruled out. Interval update: Pleural fluid cultures negative. Chest x-ray from this morning reviewed, chest tube in the pleural space. Worsening left pleural effusion with near complete opacification of the left lung santana, worse even compared from his admission x-ray, concern fo
--- NOTE | 2022-08-25 10:27 | CT_ITS ---
FINAL REPORT TECHNIQUE: Axial CT images were performed from the lung apices through the upper abdomen. Coronal reformats were submitted. This study was performed with techniques to keep radiation doses as low as reasonably achievable (ALARA). Individualized dose reduction techniques using automated exposure control or adjustment of mA and/or kV according to the patient's size were employed. CLINICAL HISTORY: Effusion/ atelectasis COMPARISON: 08/21/2022 FINDINGS: There is mediastinal adenopathy, stable. There are moderate right and large left effusions. Left effusion is somewhat smaller than previous. There has been interval placement of a left-sided chest tube. There is bilateral atelectasis, left worse than right. This appears worse bilaterally. Limited images of the upper abdomen demonstrate a small amount of ascites. There is stable anasarca. There is a gallstone in the gallbladder. There is nonspecific upper abdomen adenopathy and partially visualized presumed splenomegaly. IMPRESSION: New left chest tube with slight improvement in the large left effusion. Worsening bilateral atelectasis. Other findings are stable. Reviewed, Interpreted and Dictated by Maynor Brandon III, MD Transcribed by Jada Schwartz Authenticated and [facility]
[2022-08-25 11:39] VITALS: BP 125/58; PULSE 71; RESP 17; TEMP 36.8; O2SAT 94
[2022-08-25 12:19] LABS: Albumin, Body Fluid 2.1 g/dL (Not Estab.); Glucose, Body Fluid 13 mg/dL (.); LD, Body Fluid 514 IU/L (.); Protein, Body Fluid 3.8 g/dL (.)
--- NOTE | 2022-08-25 13:08 | US_ITS ---
FINAL REPORT CLINICAL HISTORY: Pleural effusion lt sided thoracentesis performed by Dr Bryan 60 cc removed FINDINGS: ULTRASOUND-GUIDED THORACENTESIS HISTORY: Pleural effusion. TECHNIQUE: Ultrasound was provided for the clinical service and performance of a thoracentesis. 60 mL of fluid was removed. IMPRESSION: Ultrasound guidance for thoracentesis as above. Films reviewed , interpreted and dictated by Dr. Brandon Transcribed by Crow Alaniz PA-C. Reviewed, Interpreted and Dictated by Maynor Brandon III, MD Transcribed by DIANE Solis Authenticated and [facility]
[2022-08-25 15:21] VITALS: BP 160/84; PULSE 69; RESP 18; TEMP 36.6; O2SAT 99
--- NOTE | 2022-08-25 15:21 | XR_ITS ---
FINAL REPORT CLINICAL HISTORY: chest tube placement COMPARISON: 08/25/2022 FINDINGS: SINGLE-VIEW CHEST The heart size is normal. The mediastinum is normal. New left pleural catheter is identified. Left chest tube remains in place. There has been interval improvement in left pleural effusion with moderate persistent pleural effusion. Small right effusion is identified. There are bilateral pulmonary opacities, favor atelectasis. There is no pneumothorax. IMPRESSION: New left pleural catheter with significant improvement in the left pleural effusion. Reviewed, Interpreted and Dictated by Maynor Brandon III, MD Transcribed by Jada Schwartz Authenticated and [facility]
--- NOTE | 2022-08-25 15:32 | P.PCN_ITS ---
[facility] Procedure Note Date: 08/25/22 Time: 15:30 Procedure Note:: Procedure: Left t chest tube placement Indication for procedure: Loculated Pleural effusion Bedside ultrasound performed noted to have left loculated pleural effusion. Consent was obtained from the patient and to proceed with left chest tube placement. A time out was performed, and the chest x-ray was reviewed, the appropriate side was confirmed and marked. My hands were washed immediately prior to the p rocedure. I wore a surgical cap, mask with protective eyewear, sterile gown, and sterile gloves throughout the procedure. The patient was prepped and draped in a sterile manner using chlorhexidine scrub after the appropriate level was percussed and confirmed by ultrasound. 1% lidocaine was used to anesthetize the skin, ?subcutaneous tissue, superior aspect of the rib periosteum and parietal pleura.? A finder needle was then introduced at the?seventh intercoastal space posteriorly?to locate the pleural fluid and?blood-tinged?fluid was aspirated.?The syringe? was removed and a guidewire was advanced into the introducer needle.? The guidewire was visualized in the pleural space by ultrasound.? A small incision was made at the skin surface with a scalpel and the? introducer needle was exchanged for a dilator over the guidewire. After? appropriate dilation was obtained, the dilator was exchanged over the wire for chest tube.??The chest tube in a sterile fashion was connected to atrium and suction at ?negative 20 cm water 60 ml of?bloody-colored?fluid was removed without difficulty.The fluid will be sent for routine pleural studies, cultures along with cytopathology.?? No immediate complications were noted during the procedure. A post-procedure chest X-ray is pending at the time of this note. Patient tolerated the procedure well? Estimated blood loss is 5cc.
[2022-08-25 16:10] LABS: Source, Body Fld. Thoracentesis Fluid
[2022-08-25 16:23] LABS: Volume,Body Fld. 52 mL
[2022-08-25 16:45] LABS: RBC,Body Fluid 24 cells/uL (< 10 X 10^3); TNC,Body Fluid 2606 cells/uL (< 1000)
[2022-08-25 17:11] LABS: Lactate Dehydrogenase 262 U/L (313-618)
[2022-08-25 17:55] LABS: Mononuclear WBCs,Body Fluid 24 %; Polynuclear WBC,Body Fluid 35 %
--- NOTE | 2022-08-25 18:28 | PC.NURSE ---
Pt had a CT chest done today, see pulmonology note. 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 Suction and tubes are labeled. Pt is resting comfortably in bed with no complaints of pain. Did have a BM today. Still on 6L NC. Repeat chest x-ray after second chest tube placement done see report.
--- NOTE | 2022-08-25 18:49 | PC.NURSE ---
Old chest tube drained 160ml, New chest tube drained 100ml
[2022-08-25 20:00] VITALS: BP 174/86; PULSE 76; RESP 20; TEMP 36.9; O2SAT 97
[2022-08-26] VITALS (7 sets, daily range): BP systolic 114–146; BP diastolic 53–70; PULSE 51–74; RESP 16–22; TEMP 36.3–36.7; O2SAT 94–99; BMI 22.6
--- NOTE | 2022-08-26 05:56 | PC.NURSE ---
NO ACUTE CHANGES THIS SHIFT. PT HAS C/O PAIN/TENDERNESS AROUND CHEST TUBE SITES. PT HAS HAD 130ML OF DRAINAGE OUT OF THE BOTTOM TUBE AND NONE FROM THE TOP. VSS. REMAINS ON 6L NASAL CANNULA AND IS TOLERATING WELL. LUNG SOUNDS ARE DIMINISHED IN THE LEFT UPPER LOBE AND ABSENT IN THE LEFT LOWER LOBE. NO N/V/D.
--- NOTE | 2022-08-26 06:00 | XR_ITS ---
PROCEDURE INFORMATION: Exam: XR Chest Exam date and time: 08/26/2022 5:26 AM Age: 82 years old Clinical indication: Device placement; Chest tube TECHNIQUE: Imaging protocol: Radiologic exam of the chest. Views: 1 view. COMPARISON: CR XR CHEST PORTABLE 08/25/2022 3:57 PM FINDINGS: Tubes, catheters and devices: Chest tube and pleural drain in stable positions. Lungs: There is increased atelectasis of the left upper lung. The right lung is clear. Pleural spaces: Increasing opacification of the left hemithorax consistent with an enlarging pleural effusion. Heart/Mediastinum: Unremarkable. No cardiomegaly. Bones/joints: Unremarkable. IMPRESSION: Increasing pleural effusion with compressive atelectasis of the left upper lung. Chest tubes in stable positions.
[2022-08-26 06:33] LABS: Basophils % 1.5 % (0.1-2.0); Eosinophils # 0.2 K/mm3 (0.0-0.4); Eosinophils % 0.2 % (0.1-12.0); Hemoglobin 7.9 g/dL (14.1-18.0); Lymphocytes # 56.6 K/mm3 (0.7-4.5); Lymphocytes % 82.3 % (10-50); Mean Corpuscular HGB Conc 31.6 g/dL (31.8-35.4); Mean Corpuscular Hemoglobin 27.5 pg (27.0-31.2); Mean Corpuscular Volume 87.1 fl (80-94); Mean Platelet Volume 8.1 fl (7.4-10.4); Monocytes # 0.6 K/mm3 (0.1-1.0); Monocytes % 0.9 % (1.7-9.3); Neutrophils # 10.5 K/mm3 (1.8-7.8); Neutrophils % 15.2 % (37.0-80.0); Platelet Count 162 K/mm3 (142-424); Red Blood Count 2.87 M/mm3 (4.60-6.20); Red Cell Distribution Width 15.7 % (11.5-17.5)
[2022-08-26 06:59] LABS: White Blood Count 68.9 K/mm3 (4.8-10.8)
[2022-08-26 07:00] LABS: MANUAL DIFFERENTIAL MANUAL DIFFERENTIAL (MANUAL DIFF)
[2022-08-26 07:19] LABS: Anion Gap 17.4 mEq/L (5-15); Blood Urea Nitrogen 74 mg/dl (9-20); Carbon Dioxide 28 mmol/L (22.0-30.0); Chloride 94 mmol/L (98-107); Creatinine Clearance Estimated 13 mL/min (50-200); Estimated Glomerular Filt Rate 13 ml/min (>60); GFR (African American) 16 ML/MIN (>60); Glucose 97 mg/dl (74-100); Potassium 3.4 mmoL/L (3.5-5.1); Sodium 136 mmol/L (136-145)
[2022-08-26 08:04] LABS: Hypochromasia 1+; Lymphocytes % 77 % (10-50); Monocytes % 1 % (2-9); Neutrophils % 22 % (42-76); Platelet Estimate Normal; Total Cells Counted 100
--- NOTE | 2022-08-26 08:31 | EXP.ACUTE.PN ---
Subjective *Date: 08/26/22 *Time: 08:31 Interval history: Events of yesterday noted. Pulmonary consultation appreciated. Second chest tube in place. Chest x-ray reviewed. Patient notes little bit more pain in the upper chest with breathing and with coughing. Medical Exam Vital signs and Labs for Last 24 Hours: Vital Signs Temp Pulse Resp BP Pulse Ox 08/26/22 08:00 97.5 F L 69 16 138/70 94 L 08/26/22 04:00 97.6 F 65 19 139/60 95 08/26/22 00:00 95 08/26/22 00:00 98.0 F 74 18 146/66 H 95 08/25/22 20:00 97 08/25/22 20:00 98.5 F 76 20 174/86 H 97 08/25/22 15:21 97.9 F 69 18 160/84 H 99 08/25/22 11:39 98.2 F 71 17 125/58 L 94 L Intake and Output 08/25/22 08/26/22 08/26/22 19:59 03:59 11:59 Intake Total 480 / 840 360 / 840 Output Total 310 / 440 0 / 440 130 / 440 Balance 170 / 400 0 / 400 230 / 400 Intake: Intake, Oral Amount 480 / 840 360 / 840 Output: Output, Urine Amount 50 / 50 0 / 50 Output, Pleural Fluid Amount 130 / 130 Output, Chest Tube Drainage 260 / 260 Amount Left Mid-Axillary Chest 260 / 260 Other: Number of Unmeasured Voids 1 Number of Bowel Movements 1 1 Weight 161 lb 11.2 oz Patient Weight 08/26/22 11:59 Weight 161 lb 11.2 oz Laboratory Results - last 24 hr 08/23/22 15:00: Fluid Glucose 13, Fluid Total Protein 3.8, Fluid Albumin 2.1, Fluid LDH 514 08/25/22 14:10: Fluid Source Thoracentesis fluid, Fluid Volume 52, Fluid Appearance Slightly bloody, Fluid RBC (Auto) 24, Fld Tot Nucleated Cell 2606, Fld Polynuclear WBCs % 35, Fld Mononuclear WBCs % 24 08/25/22 15:55: Lactate Dehydrogenase 262 L D 08/26/22 05:45: WBC 68.9 H*, RBC 2.87 L, Hgb 7.9 L, Hct 25.0 L, MCV 87.1, MCH 27.5, MCHC 31.6 L, RDW 15.7, Plt Count 162, MPV 8.1, Neut % (Auto) 15.2 L, Lymph % (Auto) 82.3 H, Brewster % (Auto) 0.9 L, Eos % (Auto) 0.2, Baso % (Auto) 1.5, Neut # (Auto) 10.5 H, Lymph # (Auto) 56.6 H, Brewster # (Auto) 0.6, Eos # (Auto) 0.2, Baso # (Auto) 1.0 H, Total Counted 100, Neutrophils % (Manual) 22 L, Lymphocytes % (Manual) 77 H, Monocytes % (Manual) 1 L, Platelet Estimate Normal, Hypochromasia 1+ 08/26/22 05:45: Sodium 136, Potassium 3.4 L, Chloride 94 L, Carbon Dioxide 28, Anion Gap 17.4 H, BUN 74 H, Creatinine 4.40 H, Estimated Creat Clear 13, Estimated GFR 13 L*, Est GFR ( Amer) 16 L*, Glucose 97, Calcium 7.0 L I & O for Labs for Last 24 Hours: Intake & Output 08/23/22 08/24/22 08/25/22 08/26/22 11:59 11:59 11:59 11:59 Intake Total 600 / 600 690 / 690 660 / 660 840 / 840 Output Total 1340 / 1340 860 / 860 950 / 950 440 / 440 Balance -740 / -740 -170 / -170 -290 / -290 400 / 400 Weight 157 lb 1.975 oz 158 lb 8 oz 159 lb 161 lb 11.2 oz Microbiology Reports for the Last 24 Hours: Microbiology 08/25/22 14:10 Thoracic Fluid Gram Stain - Final 08/23/22 15:00 Thoracic Fluid Body Fluid Culture - Preliminary NO GROWTH AFTER 48 HOURS 08/21/22 14:01 Thoracic Fluid Gram Stain - Final 08/21/22 14:01 Thoracic Fluid Body Fluid Culture - Preliminary NO GROWTH AFTER 4 DAYS 08/21/22 06:50 Blood Blood Culture - Preliminary NO GROWTH AFTER 48 HOURS 08/21/22 06:50 Blood Blood Culture - Preliminary NO GROWTH AFTER 48 HOURS Comment:: Chest tubes in good position. Drainage noted in the tubing. Good air movement. Still has diminished air sounds in the left lower lung base. Heart rate regular. Pleasant, alert, pale and chronically ill-appearing but oriented x3. Ankle edema still improving over his baseline Assessment and Plan *Assessment and plan (1) Large pleural effusion: Status: Acute Category: Medical Code(s): J90 - Pleural effusion, not elsewhere classified (2) Chronic lymphocytic leukemia: Status: Acute Category: Medical Code(s): C91.10 - Chronic lymphocyt
--- NOTE | 2022-08-26 09:38 | US_ITS ---
FINAL REPORT CLINICAL HISTORY: Slpenomegaly Ascites COMPARISON: none FINDINGS: Sonographic images of the abdomen were obtained. There is fatty infiltration of the liver. There is gallbladder wall thickening measuring up to 6 mm with gallstones present in the gallbladder. There is no evidence of biliary ductal dilatation. The common hepatic duct measures 3 mm, which is within normal limits. The pancreas is obscured. There is splenomegaly measuring up to 16.2 cm. The right kidney measures 9.5 in length. The left kidney measures 10.9 in length. There is normal renal echogenicity. There is mild left hydronephrosis. The aorta has an unremarkable appearance. Limited images of the inferior vena cava are unremarkable. There is a small amount of ascites. Bilateral pleural effusions are noted. IMPRESSION: Splenomegaly. Fatty liver. Cholelithiasis with gallbladder wall thickening. Mild left hydronephrosis. Small amount of abdominal ascites. Bilateral pleural effusions. Reviewed, Interpreted and Dictated by Maynor Brandon III, MD Transcribed by Karolina Slaughter Authenticated and [facility]
--- NOTE | 2022-08-26 10:26 | PC.NURSE ---
per yimi, give 0.5mg dilaudid iv once stat for removal of chest tube. verified with carrie galeano. admin 0.5mg iv dilaudid at 1000
--- NOTE | 2022-08-26 10:30 | EXP.PULM.PN ---
Subjective *Date: 08/26/22 *Time: 10:30 Interval history: Patient denies any new respiratory complaints. Denies any improvement in his respiratory symptoms. Pulmonology Exam Inpatient Vital signs and Labs for Last 24 Hours: Temp Pulse Resp BP Pulse Ox 97.5 F L 69 16 138/70 94 L 08/26/22 08:00 08/26/22 08:00 08/26/22 08:00 08/26/22 08:00 08/26/22 08:00 Laboratory Results - last 24 hr 08/23/22 15:00: Fluid Glucose 13, Fluid Total Protein 3.8, Fluid Albumin 2.1, Fluid LDH 514 08/25/22 14:10: Fluid Source Thoracentesis fluid, Fluid Volume 52, Fluid Appearance Slightly bloody, Fluid RBC (Auto) 24, Fld Tot Nucleated Cell 2606, Fld Polynuclear WBCs % 35, Fld Mononuclear WBCs % 24 08/25/22 15:55: Lactate Dehydrogenase 262 L D 08/26/22 05:45: WBC 68.9 H*, RBC 2.87 L, Hgb 7.9 L, Hct 25.0 L, MCV 87.1, MCH 27.5, MCHC 31.6 L, RDW 15.7, Plt Count 162, MPV 8.1, Neut % (Auto) 15.2 L, Lymph % (Auto) 82.3 H, Deuel % (Auto) 0.9 L, Eos % (Auto) 0.2, Baso % (Auto) 1.5, Neut # (Auto) 10.5 H, Lymph # (Auto) 56.6 H, Deuel # (Auto) 0.6, Eos # (Auto) 0.2, Baso # (Auto) 1.0 H, Total Counted 100, Neutrophils % (Manual) 22 L, Lymphocytes % (Manual) 77 H, Monocytes % (Manual) 1 L, Platelet Estimate Normal, Hypochromasia 1+ 08/26/22 05:45: Sodium 136, Potassium 3.4 L, Chloride 94 L, Carbon Dioxide 28, Anion Gap 17.4 H, BUN 74 H, Creatinine 4.40 H, Estimated Creat Clear 13, Estimated GFR 13 L*, Est GFR ( Amer) 16 L*, Glucose 97, Calcium 7.0 L I & O for Labs for Last 24 Hours: Intake & Output 08/23/22 08/24/22 08/25/22 08/26/22 23:59 23:59 23:59 23:59 Intake Total 810 / 810 540 / 540 720 / 720 360 / 360 Output Total 920 / 920 960 / 1060 730 / 730 130 / 130 Balance -110 / -110 -420 / -520 -10 / -10 230 / 230 Weight 157 lb 1.975 oz 158 lb 8 oz 159 lb 161 lb 11.2 oz Microbiology Reports for the Last 24 Hours: Microbiology 08/25/22 14:10 Thoracic Fluid Gram Stain - Final 08/23/22 15:00 Thoracic Fluid Body Fluid Culture - Preliminary NO GROWTH AFTER 48 HOURS 08/21/22 14:01 Thoracic Fluid Gram Stain - Final 08/21/22 14:01 Thoracic Fluid Body Fluid Culture - Preliminary NO GROWTH AFTER 4 DAYS 08/21/22 06:50 Blood Blood Culture - Preliminary NO GROWTH AFTER 48 HOURS 08/21/22 06:50 Blood Blood Culture - Preliminary NO GROWTH AFTER 48 HOURS Constitutional: Present moderate distress Head: Present normocephalic and atraumatic ENT: Present normal exam, normal oropharynx and mucous membranes moist Neck: Present normal inspection and full ROM Respiratory: Present respiratory distress, crackles, diminished air movement and able to speak in complete sentences; Absent wheezes Comment:: Continued to have decreased breath sounds left lung santana along with right lower lung santana. Improved aeration in the left upper lung santana Cardiac: Present S1/S2, Tachycardia and radial pulses present GI: Present soft and distention; Absent tenderness or guarding Skin: Present intact; Absent cyanosis or jaundice Neuro: Present alert, awake and oriented x 3 Extremities: Present normal inspection and edema; Absent clubbing or cyanosis Psychiatric: Present normal affect and cooperative Assessment and Plan *Assessment and plan (1) Large pleural effusion: Status: Acute Category: Medical Code(s): J90 - Pleural effusion, not elsewhere classified (2) Pneumonia: Status: Acute Category: Medical Code(s): J18.9 - Pneumonia, unspecified organism (3) Acute respiratory failure with hypoxia: Status: Acute Category: Medical Code(s): J96.01 - Acute respiratory failure with hypoxia (4) Loculated pleural effusion: Status: Acute Category: Medical Code(s): J90 - Pleural effusion, not elsewhere classified Plan 82-year-old male history of CLL monitoring clinically with no brenda
--- NOTE | 2022-08-26 17:24 | XR_ITS ---
PROCEDURE INFORMATION: Exam: XR Chest Exam date and time: 08/26/2022 6:09 PM Age: 82 years old Clinical indication: Device placement; Chest tube TECHNIQUE: Imaging protocol: Radiologic exam of the chest. Views: 1 view. COMPARISON: CR XR CHEST PORTABLE 08/26/2022 5:26 AM FINDINGS: Tubes, catheters and devices: Pigtail drainage catheter grossly in tip place projected over left lung base. Pleural chest tube no longer seen. Lungs: Bilateral compressive subsegmental atelectasis. Pleural spaces: Smaller persistent left moderate pleural effusion. Larger right moderate pleural effusion. Bilateral compressive subsegmental atelectasis. No obvious pneumothorax identified. Heart/Mediastinum: Unremarkable. No cardiomegaly. Bones/joints: Unremarkable. IMPRESSION: 1. Smaller left pleural effusion. 2. Larger right pleural effusion.
--- NOTE | 2022-08-26 17:48 | PC.NURSE ---
pt had 2000ml sanguineous drainage from chest tube in the last couple of hrs. yimi notified, telephone order for CXR and H&H STAT, place chest tube on water seal. pts A&O, VSS stable, c/o pain 9/10 at chest tube site.
[2022-08-26 18:01] LABS: Hematocrit 28.1 % (42.0-52.0)
--- NOTE | 2022-08-26 18:48 | PC.NURSE ---
rounded on patient earlier in shift. no needs expressed.
--- NOTE | 2022-08-26 18:54 | PC.NURSE ---
Addendum entered by Sonia Navarro RN 08/26/22 18:57: ANSWERED WIFES QUESTIONS, PT RESTING C/O NO PAIN AT THIS TIME. Original Note: CHANGED PLEURA VAC, 250ML SEROSANGUINEOUS DRAINAGE, MARKED ON CONTAINER
--- NOTE | 2022-08-26 18:59 | PC.NURSE ---
PER KATELYNN, CONT CARE, CHEST TUBE TO NEGATIVE 20 SUCTION.
[2022-08-27] VITALS: BP 130/52; PULSE 55; RESP 20; TEMP 36.3; O2SAT 98
[2022-08-27 03:47] VITALS: BP 122/54; PULSE 63; RESP 20; TEMP 36.8; O2SAT 97
[2022-08-27 04:00] VITALS: BMI 21.4
--- NOTE | 2022-08-27 06:00 | XR_ITS ---
PROCEDURE INFORMATION: Exam: XR Chest Exam date and time: 08/27/2022 5:28 AM Age: 82 years old Clinical indication: Device placement; Chest tube; Additional info: Chest tube/effusion TECHNIQUE: Imaging protocol: Radiologic exam of the chest. Views: 1 view. COMPARISON: CR XR CHEST PORTABLE 08/26/2022 6:09 PM FINDINGS: Tubes, catheters and devices: Left thoracic pigtail catheter unchanged. Lungs: Linear atelectasis left mid lung. Calcified granuloma right upper lobe again noted. Left base and retrocardiac pulmonary opacities unchanged. Pleural spaces: Similar bilateral pleural effusions. No obvious pneumothorax. Heart/Mediastinum: Stable cardiac size. Bones/joints: Degenerative changes of the spine. Soft tissues: Multiple skin folds over the left upper chest. IMPRESSION: No significant change except for increasing atelectasis left mid lung.
--- NOTE | 2022-08-27 06:39 | PC.NURSE ---
Patient has had 950 ml serosanguinous drainage from the pleuravac . Drsg C/D/I to chest tube . No C/O pain or discomfort.
[2022-08-27 07:52] VITALS: BP 137/57; PULSE 66; RESP 18; TEMP 36.4; O2SAT 96
--- NOTE | 2022-08-27 08:04 | EXP.ACUTE.PN ---
Subjective *Date: 08/27/22 *Time: 08:04 Interval history: Patient feels a little better. Procedure notes and pulmonary consultation from yesterday reviewed. Discussed case with pulmonary. Very much appreciate input. Percocet has helped with pain. Medical Exam Vital signs and Labs for Last 24 Hours: Vital Signs Temp Pulse Resp BP Pulse Ox 08/27/22 07:52 97.6 F 66 18 137/57 L 96 08/27/22 03:47 98.3 F 63 20 122/54 L 97 08/27/22 00:00 97.4 F L 55 L 20 130/52 L 08/27/22 00:00 98 08/26/22 20:00 98 08/26/22 20:00 97.4 F L 57 L 20 140/53 L 98 08/26/22 17:00 97.6 F 61 16 114/53 L 99 08/26/22 16:00 97.4 F L 64 22 138/63 97 08/26/22 12:00 98.0 F 51 L 16 138/70 96 Intake and Output 08/26/22 08/27/22 08/27/22 19:59 03:59 11:59 Intake Total 120 / 120 Output Total 100 / 1150 0 / 1150 1050 / 1150 Balance 20 / -1030 0 / -1030 -1050 / -1030 Intake: Intake, Oral Amount 120 / 120 Output: Output, Urine Amount 100 / 200 0 / 200 100 / 200 Output, Chest Tube Drainage 950 / 950 Amount Left Mid-Axillary Chest 950 / 950 Other: Number of Unmeasured Voids 0 1 Weight 153 lb Patient Weight 08/27/22 11:59 Weight 153 lb Laboratory Results - last 24 hr 08/26/22 05:45: Total Counted 100, Neutrophils % (Manual) 22 L, Lymphocytes % (Manual) 77 H, Monocytes % (Manual) 1 L, Platelet Estimate Normal, Hypochromasia 1+ 08/26/22 17:55: Hgb 9.0 L D, Hct 28.1 L I & O for Labs for Last 24 Hours: Intake & Output 08/24/22 08/25/22 08/26/22 08/27/22 11:59 11:59 11:59 11:59 Intake Total 690 / 690 660 / 660 840 / 840 120 / 120 Output Total 860 / 860 950 / 950 440 / 440 1150 / 1150 Balance -170 / -170 -290 / -290 400 / 400 -1030 / -1030 Weight 158 lb 8 oz 159 lb 161 lb 11.2 oz 153 lb Microbiology Reports for the Last 24 Hours: Microbiology 08/25/22 14:10 Thoracic Fluid Gram Stain - Final 08/25/22 14:10 Thoracic Fluid Body Fluid Culture - Preliminary NO GROWTH AFTER 24 HOURS 08/24/22 09:38 Sputum - Expectorated Sputum Gram Stain - Final 08/23/22 15:00 Thoracic Fluid Body Fluid Culture - Preliminary NO GROWTH AFTER 72 HOURS 08/21/22 14:01 Thoracic Fluid Gram Stain - Final 08/21/22 14:01 Thoracic Fluid Body Fluid Culture - Final NO GROWTH AFTER 5 DAYS Comment:: Chest tubes in good position. Drainage noted in the tubing. Good air movement. Still has diminished air sounds in the left lower lung base. Heart rate regular. Pleasant, alert, pale and chronically ill-appearing but oriented x3. Ankle edema still improving over his baseline Assessment and Plan *Assessment and plan (1) Large pleural effusion: Status: Acute Category: Medical Code(s): J90 - Pleural effusion, not elsewhere classified (2) Chronic lymphocytic leukemia: Status: Acute Category: Medical Code(s): C91.10 - Chronic lymphocytic leukemia of B-cell type not having achieved remission (3) CLL (chronic lymphocytic leukemia): Status: Acute Category: Medical Code(s): C91.10 - Chronic lymphocytic leukemia of B-cell type not having achieved remission (4) Chronic kidney disease (CKD) stage G5/A1, glomerular filtration rate (GFR) less than or equal to 15 mL/min/1.73 square meter and albuminuria creatinine ratio less than 30 mg/g: Status: Acute Category: Medical Code(s): N18.5 - Chronic kidney disease, stage 5 Plan Improving after tPA administration. Continue following with pulmonary. Hemoglobin actually improved after tPA administration yesterday. In preparation for possible discharge we will try to arrange home health aides/DME including hospital bed, wheelchair and bedside commode for patient given his significant increased pain with movement and need for rapid changes in body position with his pleural
--- NOTE | 2022-08-27 10:23 | CARE MANAGER ---
Per Dr. Regalado, patient will likely discharge over the weekend. Patient would benefit from BSC, W/C and hospital bed at discharge. DME orders/clinical will be faxed to [facility] today to facilitate ease of weekend discharge.
--- NOTE | 2022-08-27 10:49 | SW/DCPLANNER ---
Addendum entered by Marialuisa Cantrell 09/01/22 10:08: Alessandra w/ [facility] has accepted this patient SNF level of care. Addendum entered by Marialuisa Cantrell 09/01/22 08:42: Patient's has expressed an interest in SNF level of care at time of discharge. After discussion w/ patient, his and Dr Regalado the decision was made to fax patient information to [facility]. Alessandra w/ [facility] stated that she will review and does have male beds. Patient is medically stable for discharge today. Addendum entered by Marialuisa Cantrell 08/30/22 08:51: Per [facility] contacted her this AM and is planned to set bed up at home today. I will set up home health services with [facility] at time of discharge. Patient could possibly discharge home tomorrow. Original Note: Prior to hospital admission patient was established with [facility]. I will resume home health services at time of discharge. Discharge date is unknown at this time.
--- NOTE | 2022-08-27 10:50 | EXP.PULM.PN ---
Subjective *Date: 08/27/22 *Time: 10:50 Interval history: No acute respiratory vents overnight. Patient is worsening pain around the chest tube Pulmonology Exam Inpatient Vital signs and Labs for Last 24 Hours: Temp Pulse Resp BP Pulse Ox 97.6 F 66 18 137/57 L 96 08/27/22 07:52 08/27/22 07:52 08/27/22 07:52 08/27/22 07:52 08/27/22 07:52 Laboratory Results - last 24 hr 08/26/22 17:55: Hgb 9.0 L D, Hct 28.1 L I & O for Labs for Last 24 Hours: Intake & Output 08/24/22 08/25/22 08/26/22 08/27/22 23:59 23:59 23:59 23:59 Intake Total 540 / 540 720 / 720 480 / 480 360 / 360 Output Total 960 / 1060 730 / 730 230 / 230 1150 / 1150 Balance -420 / -520 -10 / -10 250 / 250 -790 / -790 Weight 158 lb 8 oz 159 lb 161 lb 11.2 oz 153 lb Microbiology Reports for the Last 24 Hours: Microbiology 08/25/22 14:10 Thoracic Fluid Gram Stain - Final 08/25/22 14:10 Thoracic Fluid Body Fluid Culture - Preliminary NO GROWTH AFTER 24 HOURS 08/24/22 09:38 Sputum - Expectorated Sputum Gram Stain - Final 08/23/22 15:00 Thoracic Fluid Body Fluid Culture - Preliminary NO GROWTH AFTER 72 HOURS 08/21/22 14:01 Thoracic Fluid Gram Stain - Final 08/21/22 14:01 Thoracic Fluid Body Fluid Culture - Final NO GROWTH AFTER 5 DAYS Constitutional: Present moderate distress Head: Present normocephalic and atraumatic ENT: Present normal exam, normal oropharynx and mucous membranes moist Neck: Present normal inspection and full ROM Respiratory: Present respiratory distress, crackles, diminished air movement and able to speak in complete sentences; Absent wheezes Comment:: Continued to have decreased breath sounds left lung santana along with right lower lung santana. Improved aeration in the left upper lung santana Cardiac: Present S1/S2, Tachycardia and radial pulses present GI: Present soft and distention; Absent tenderness or guarding Skin: Present intact; Absent cyanosis or jaundice Neuro: Present alert, awake and oriented x 3 Extremities: Present normal inspection and edema; Absent clubbing or cyanosis Psychiatric: Present normal affect and cooperative Assessment and Plan *Assessment and plan (1) Large pleural effusion: Status: Acute Category: Medical Code(s): J90 - Pleural effusion, not elsewhere classified (2) Pneumonia: Status: Acute Category: Medical Code(s): J18.9 - Pneumonia, unspecified organism (3) Acute respiratory failure with hypoxia: Status: Acute Category: Medical Code(s): J96.01 - Acute respiratory failure with hypoxia (4) Loculated pleural effusion: Status: Acute Category: Medical Code(s): J90 - Pleural effusion, not elsewhere classified Plan 82-year-old male history of CLL monitoring clinically with no treatments, history of SCC head and neck, follows at follow Dr. Person, stage IV-V kidney disease refused dialysis no significant prior respiratory complaints presented with worsening respiratory distress and found to large pleural effusion pulmonary was called for further evaluation. Patient also complains of worsening bilateral lower extremity edema that significant improved after his hospital admission. 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 Status post large bore chest tube placement on the left pleural space in the ER. Chest x-ray from April 2022 small left pleural effusion with no right effusion noted. Patient's current pleural effusions likely from CKD and volume overload and CLL at this point of time. Concomitant transformation cannot be completely ruled out. Pleural fluid cultures negative. Initial pleural fluid cytology negative for malignancy. Follow with repeat studies. Interval update: Small bore chest tube in p
[2022-08-27 12:00] VITALS: BP 115/40; PULSE 57; RESP 18; TEMP 36.8; O2SAT 96
[2022-08-27 12:10] LABS: Albumin, Body Fluid 1.9 g/dL (Not Estab.); Glucose, Body Fluid <2 mg/dL (.); LD, Body Fluid 995 IU/L (.); Protein, Body Fluid 3.8 g/dL (.)
--- NOTE | 2022-08-27 13:29 | CARE MANAGER ---
Patient' room air saturation is 88% at rest.
--- NOTE | 2022-08-27 14:00 | CARE MANAGER ---
Patient is currently unable to ambulate with walker, and will require a w/c at discharge.
--- NOTE | 2022-08-27 14:04 | CARE MANAGER ---
NAKUL, W/C, home oxygen @ 4L per [place], and a hospital bed has been ordered from [facility].
--- NOTE | 2022-08-27 14:15 | PC.NURSE ---
pt room air sat is 88% at rest
[2022-08-27 16:00] VITALS: BP 109/56; PULSE 62; RESP 18; TEMP 36.6; O2SAT 96
--- NOTE | 2022-08-27 19:05 | PC.NURSE ---
successfully titrated o2 this shift. currently on 4lnc and tolerating well. was medicated ror pain and premedicated before instillation of tpa per chest tube.
[2022-08-27 20:00] VITALS: BP 132/64; PULSE 61; RESP 16; TEMP 36.4; O2SAT 95; O2SAT 98
[2022-08-28] VITALS: BP 130/64; PULSE 61; RESP 16; TEMP 36.4; O2SAT 98
[2022-08-28 04:00] VITALS: BP 116/52; PULSE 58; RESP 16; TEMP 36.7; O2SAT 95; BMI 20.9
--- NOTE | 2022-08-28 05:40 | PC.NURSE ---
AT 0030 PATIENTS CHEST TUBE RECEIVED ACTIVASE AND PULMOZYME ORDERED, NO PAWAN BLEEDING NOTED. FAMILT MEMBER AT BED SIDE,
--- NOTE | 2022-08-28 06:00 | XR_ITS ---
PROCEDURE INFORMATION: Exam: XR Chest Exam date and time: 08/28/2022 5:49 AM Age: 82 years old Clinical indication: Device placement; Chest tube; Additional info: Chest tube/effusion TECHNIQUE: Imaging protocol: Radiologic exam of the chest. Views: 1 view. COMPARISON: CR XR CHEST PORTABLE 08/27/2022 5:28 AM FINDINGS: Tubes, catheters and devices: Left-sided pleural catheter. Lungs: Right sided effusion and airspace disease. Pleural spaces: No pneumothorax noted. Left-sided effusion is present. Heart/Mediastinum: Unremarkable. No cardiomegaly. Bones/joints: Unremarkable. IMPRESSION: Stable exam.
[2022-08-28 07:28] VITALS: BP 114/51; PULSE 61; RESP 19; TEMP 36.3; O2SAT 97
--- NOTE | 2022-08-28 08:24 | EXP.PHA.PN ---
Subjective *Date: 08/28/22 *Time: 08:24 Medical Exam Vital signs and Labs for Last 24 Hours: Vital Signs Temp Pulse Resp BP Pulse Ox 08/28/22 07:28 97.4 F L 61 19 114/51 L 97 08/28/22 04:00 98.1 F 58 L 16 116/52 L 95 08/28/22 00:00 98 08/28/22 00:00 97.5 F L 61 16 130/64 98 08/27/22 20:00 97.5 F L 61 16 132/64 98 08/27/22 20:00 95 08/27/22 16:00 97.8 F 62 18 109/56 L 96 08/27/22 12:00 98.2 F 57 L 18 115/40 L 96 Intake and Output 08/27/22 08/28/22 08/28/22 23:59 07:59 15:59 Intake Total 120 / 960 480 / 480 Output Total 2019 580 / 580 Balance -750 / -1060 -100 / -100 Intake: Intake, Oral Amount 120 / 960 480 / 480 Output: Output, Urine Amount 150 / 150 Output, Chest Tube Drainage 870 / 1820 430 / 430 Amount Left Mid-Axillary Chest 870 / 1820 430 / 430 Other: Number of Unmeasured Voids 1 Weight 68.084 kg Patient Weight 08/28/22 23:59 Weight 68.084 kg Laboratory Results - last 24 hr 08/25/22 14:10: Fluid Glucose <2, Fluid Total Protein 3.8, Fluid Albumin 1.9, Fluid LDH 995 I & O for Labs for Last 24 Hours: Intake & Output 08/25/22 08/26/22 08/27/22 08/28/22 23:59 23:59 23:59 23:59 Intake Total 720 / 720 480 / 480 720 / 960 480 / 480 Output Total 730 / 730 230 / 230 2019 580 / 580 Balance -10 / -10 250 / 250 -1300 / -1060 -100 / -100 Weight 72.121 kg 73.346 kg 69.4 kg 68.084 kg Microbiology Reports for the Last 24 Hours: Microbiology 08/21/22 06:50 Blood Blood Culture - Final NO GROWTH AFTER 5 DAYS 08/21/22 06:50 Blood Blood Culture - Final NO GROWTH AFTER 5 DAYS 08/25/22 14:10 Thoracic Fluid Gram Stain - Final 08/25/22 14:10 Thoracic Fluid Body Fluid Culture - Preliminary NO GROWTH AFTER 48 HOURS 08/23/22 15:00 Thoracic Fluid Body Fluid Culture - Preliminary NO GROWTH AFTER 4 DAYS The patient's infection will respond to the chosen ABx?: Yes Is the patient receiving the right drug, dose, and route?: Yes Could a more targeted ABx be ordered?: No
--- NOTE | 2022-08-28 09:10 | EXP.ACUTE.PN ---
Subjective *Date: 08/28/22 *Time: 09:10 Interval history: Patient feels tired. Pain is about the same. Has been up and doing some low-grade physical therapy. Medical Exam Vital signs and Labs for Last 24 Hours: Vital Signs Temp Pulse Resp BP Pulse Ox 08/28/22 07:28 97.4 F L 61 19 114/51 L 97 08/28/22 04:00 98.1 F 58 L 16 116/52 L 95 08/28/22 00:00 98 08/28/22 00:00 97.5 F L 61 16 130/64 98 08/27/22 20:00 97.5 F L 61 16 132/64 98 08/27/22 20:00 95 08/27/22 16:00 97.8 F 62 18 109/56 L 96 08/27/22 12:00 98.2 F 57 L 18 115/40 L 96 Intake and Output 08/27/22 08/28/22 08/28/22 19:59 03:59 11:59 Intake Total 360 / 840 240 / 840 240 / 840 Output Total 870 / 1450 580 / 1450 Balance -510 / -610 240 / -610 -340 / -610 Intake: Intake, Oral Amount 360 / 840 240 / 840 240 / 840 Output: Output, Urine Amount 150 / 150 Output, Chest Tube Drainage 870 / 1300 430 / 1300 Amount Left Mid-Axillary Chest 870 / 1300 430 / 1300 Other: Number of Unmeasured Voids 1 Weight 150 lb 1.6 oz Patient Weight 08/28/22 11:59 Weight 150 lb 1.6 oz Laboratory Results - last 24 hr 08/25/22 14:10: Fluid Glucose <2, Fluid Total Protein 3.8, Fluid Albumin 1.9, Fluid LDH 995 I & O for Labs for Last 24 Hours: Intake & Output 08/25/22 08/26/22 08/27/22 08/28/22 11:59 11:59 11:59 11:59 Intake Total 660 / 660 840 / 840 480 / 480 840 / 840 Output Total 950 / 950 440 / 440 1250 / 1250 1450 / 1450 Balance -290 / -290 400 / 400 -770 / -770 -610 / -610 Weight 159 lb 161 lb 11.2 oz 153 lb 150 lb 1.6 oz Microbiology Reports for the Last 24 Hours: Microbiology 08/24/22 09:38 Sputum - Expectorated Sputum Gram Stain - Final 08/24/22 09:38 Sputum - Expectorated Sputum Sputum Culture - Preliminary 08/21/22 06:50 Blood Blood Culture - Final NO GROWTH AFTER 5 DAYS 08/21/22 06:50 Blood Blood Culture - Final NO GROWTH AFTER 5 DAYS 08/25/22 14:10 Thoracic Fluid Gram Stain - Final 08/25/22 14:10 Thoracic Fluid Body Fluid Culture - Preliminary NO GROWTH AFTER 48 HOURS 08/23/22 15:00 Thoracic Fluid Body Fluid Culture - Preliminary NO GROWTH AFTER 4 DAYS Comment:: Chest tubes in good position. Drainage noted in the tubing. Good air movement. Still has diminished air sounds in the left lower lung base. Heart rate regular. Pleasant, alert, pale and chronically ill-appearing but oriented x3. Ankle edema still improving over his baseline Assessment and Plan *Assessment and plan (1) Large pleural effusion: Status: Acute Category: Medical Code(s): J90 - Pleural effusion, not elsewhere classified (2) Chronic lymphocytic leukemia: Status: Acute Category: Medical Code(s): C91.10 - Chronic lymphocytic leukemia of B-cell type not having achieved remission (3) CLL (chronic lymphocytic leukemia): Status: Acute Category: Medical Code(s): C91.10 - Chronic lymphocytic leukemia of B-cell type not having achieved remission (4) Chronic kidney disease (CKD) stage G5/A1, glomerular filtration rate (GFR) less than or equal to 15 mL/min/1.73 square meter and albuminuria creatinine ratio less than 30 mg/g: Status: Acute Category: Medical Code(s): N18.5 - Chronic kidney disease, stage 5 Plan Improving after tPA administration. Continue following with pulmonary. Hemoglobin actually improved after tPA administration yesterday. In preparation for possible discharge we will try to arrange home health aides/DME including hospital bed, wheelchair and bedside commode for patient given his significant increased pain with movement and need for rapid changes in body position with his pleural effusion. We will get prescriptions to have these at home when he is discharged. Plan
[2022-08-28 11:20] VITALS: BP 126/58; PULSE 59; RESP 17; TEMP 36.5; O2SAT 96
--- NOTE | 2022-08-28 12:38 | PC.NURSE ---
PT PRE MEDICATED FOR TPA ADMINISTRATION
[2022-08-28 15:19] VITALS: BP 135/53; PULSE 62; RESP 18; TEMP 36.5; O2SAT 98
[2022-08-28 20:00] VITALS: BP 121/56; PULSE 63; RESP 17; TEMP 36.6; O2SAT 98
--- NOTE | 2022-08-28 22:27 | PC.NURSE ---
RESTING QUIETLY IN BED AT THIS TIME. NO FURTHER C/O LEFT SIDED CHEST PAIN. CHEST TUBE INTACT TO PLEURAVAC -20 CM SUCTION. DRAINAGE PINKISH RED. DRSG TO CHEST TUBE C/D/I. FAMILY MEMBER AT BEDSIDE.
[2022-08-29] VITALS: BP 132/54; PULSE 60; RESP 18; TEMP 36.6; O2SAT 100; O2SAT 98
[2022-08-29 04:00] VITALS: BP 129/51; PULSE 59; RESP 18; TEMP 36.6; O2SAT 99; BMI 20.8
[2022-08-29 07:32] VITALS: BP 134/58; PULSE 60; RESP 17; TEMP 36.5; O2SAT 98
--- NOTE | 2022-08-29 09:19 | EXP.ACUTE.PN ---
Subjective *Date: 08/29/22 *Time: 09:19 Interval history: No major changes overnight, patient remains fairly comfortable, breathing easily. No changes in chest tube drainage. Medical Exam Vital signs and Labs for Last 24 Hours: Vital Signs Temp Pulse Resp BP Pulse Ox FiO2 08/29/22 07:32 97.7 F 60 17 134/58 L 98 08/29/22 04:00 97.9 F 59 L 18 129/51 L 99 08/29/22 00:00 97.9 F 60 18 132/54 L 100 08/29/22 00:00 98 08/28/22 20:00 97.9 F 63 17 121/56 L 98 08/28/22 20:00 98 08/28/22 18:41 36 08/28/22 15:19 97.7 F 62 18 135/53 L 98 08/28/22 11:20 97.7 F 59 L 17 126/58 L 96 Intake and Output 08/28/22 08/29/22 08/29/22 19:59 03:59 11:59 Intake Total 480 / 920 200 / 920 240 / 920 Output Total 500 / 1050 550 / 1050 Balance -20 / -130 200 / -130 -310 / -130 Intake: Intake, Oral Amount 480 / 920 200 / 920 240 / 920 Output: Output, Urine Amount 0 / 100 100 / 100 Output, Chest Tube Drainage 500 / 950 450 / 950 Amount Left Mid-Axillary Chest 500 / 950 450 / 950 Other: Number of Unmeasured Voids 1 1 Weight 149 lb 1.6 oz Patient Weight 08/29/22 11:59 Weight 149 lb 1.6 oz I & O for Labs for Last 24 Hours: Intake & Output 08/26/22 08/27/22 08/28/22 08/29/22 11:59 11:59 11:59 11:59 Intake Total 840 / 840 480 / 480 840 / 840 920 / 920 Output Total 440 / 440 1250 / 1250 1450 / 1450 1050 / 1050 Balance 400 / 400 -770 / -770 -610 / -610 -130 / -130 Weight 161 lb 11.2 oz 153 lb 150 lb 1.6 oz 149 lb 1.6 oz Microbiology Reports for the Last 24 Hours: Microbiology 08/24/22 09:38 Sputum - Expectorated Sputum Gram Stain - Final 08/24/22 09:38 Sputum - Expectorated Sputum Sputum Culture - Final Normal Respiratory Gladis 08/25/22 14:10 Thoracic Fluid Gram Stain - Final 08/25/22 14:10 Thoracic Fluid Body Fluid Culture - Preliminary NO GROWTH AFTER 72 HOURS 08/23/22 15:00 Thoracic Fluid Body Fluid Culture - Final NO GROWTH AFTER 5 DAYS 08/21/22 06:50 Blood Blood Culture - Final NO GROWTH AFTER 5 DAYS 08/21/22 06:50 Blood Blood Culture - Final NO GROWTH AFTER 5 DAYS Comment:: Chest tubes in good position. Drainage noted in the tubing. Good air movement. Still has diminished air sounds in the left lower lung base. Heart rate regular. Pleasant, alert, pale and chronically ill-appearing but oriented x3. Ankle edema still improving over his baseline Assessment and Plan *Assessment and plan (1) Large pleural effusion: Status: Acute Category: Medical Code(s): J90 - Pleural effusion, not elsewhere classified (2) Chronic lymphocytic leukemia: Status: Acute Category: Medical Code(s): C91.10 - Chronic lymphocytic leukemia of B-cell type not having achieved remission (3) CLL (chronic lymphocytic leukemia): Status: Acute Category: Medical Code(s): C91.10 - Chronic lymphocytic leukemia of B-cell type not having achieved remission (4) Chronic kidney disease (CKD) stage G5/A1, glomerular filtration rate (GFR) less than or equal to 15 mL/min/1.73 square meter and albuminuria creatinine ratio less than 30 mg/g: Status: Acute Category: Medical Code(s): N18.5 - Chronic kidney disease, stage 5 Plan Improving after tPA administration. Continue following with pulmonary. Hemoglobin actually improved after tPA administration yesterday. In preparation for possible discharge we will try to arrange home health aides/DME including hospital bed, wheelchair and bedside commode for patient given his significant increased pain with movement and need for rapid changes in body position with his pleural effusion. We will get prescriptions to have these at home when he is discharged. Plan update 08/28/2022-over
[2022-08-29 11:24] VITALS: BP 122/56; PULSE 62; RESP 18; TEMP 36.5; O2SAT 95
[2022-08-29 15:40] VITALS: BP 118/47; PULSE 62; RESP 19; TEMP 36.6; O2SAT 96
[2022-08-29 17:23] LABS: pH, Body Fluid 7.2 (Not Estab.)
--- NOTE | 2022-08-29 17:51 | PC.NURSE ---
SPENT SOME TIME UP TO CHAIR THIS SHIFT AND TOLERATED WELL. WAS MEDICATED FOR PAIN X2 THIS SHIFT. CHEST TUBE STILL DRAINING BLOOD TINGED FLUID.
[2022-08-29 20:00] VITALS: BP 133/51; PULSE 61; RESP 17; TEMP 36.5; O2SAT 99
[2022-08-30] VITALS (9 sets, daily range): BP systolic 109–132; BP diastolic 44–57; PULSE 53–65; RESP 17–20; TEMP 36.3–36.8; O2SAT 97–99; BMI 20.9
--- NOTE | 2022-08-30 04:50 | PC.NURSE ---
NO ACUTE CHANGES THIS SHIFT. PTS LUNG SOUNDS IN THE LEFT BASE IS ALMOST ABSENT. LEFT UPPER LOBE IS DIMINISHED. REMAINS ON 4L NSAL CANNULA AND IS TOLERATING WELL. ONCE THIS SHIFT PT TOOK OFF HIS OXYGEN AND THIS RN WENT INTO PT'S ROOM AND PT HAD TAKEN HIS OXYGEN AND GOWN OFF. PT HAS NOT BEEN VERY TALKATIVE THIS SHIFT. HAS EXPRESSED HER CONCERN THAT PT HAS NOT ACTED MUCH LIKE HIMSELF SINCE ABOUT DINNER TIME AND HAS BEEN VERY QUIET. CHEST TUBE REMAINS IN PLACE AND HAS BEEN DRAINING BLOODY DRAINAGE. PT HAS NOT C/O PAIN THIS SHIFT. SAMINA AN WITHIN REACH. REMAINS AT BEDSIDE.
--- NOTE | 2022-08-30 05:34 | PC.NURSE ---
PT'S CAM UT OF PT'S ROOM AND NOTIFIED THIS RN THAT HER FELT LIKE HE WAS GONG TO THROW UP. THIS RN GAVE PRN ZOFRAN AND AN EMESIS BAG TO PT.
[2022-08-30 07:07] LABS: Basophils # 1.7 K/mm3 (0-0.2); Basophils % 2.1 % (0.1-2.0); Eosinophils # 0.1 K/mm3 (0.0-0.4); Eosinophils % 0.1 % (0.1-12.0); Hematocrit 25.8 % (42.0-52.0); Hemoglobin 7.7 g/dL (14.1-18.0); Lymphocytes # 69.4 K/mm3 (0.7-4.5); Lymphocytes % 86.7 % (10-50); Mean Corpuscular Hemoglobin 26.3 pg (27.0-31.2); Mean Corpuscular Volume 87.5 fl (80-94); Mean Platelet Volume 7.7 fl (7.4-10.4); Monocytes # 0.5 K/mm3 (0.1-1.0); Monocytes % 0.6 % (1.7-9.3); Neutrophils # 8.4 K/mm3 (1.8-7.8); Platelet Count 136 K/mm3 (142-424); Red Blood Count 2.95 M/mm3 (4.60-6.20); Red Cell Distribution Width 15.9 % (11.5-17.5)
[2022-08-30 07:14] LABS: Anion Gap 11.6 mEq/L (5-15); Calcium 6.9 mg/dl (8.4-10.2); Carbon Dioxide 31 mmol/L (22.0-30.0); Chloride 94 mmol/L (98-107); Creatinine Clearance Estimated 10 mL/min (50-200); Estimated Glomerular Filt Rate 11 ml/min (>60); GFR (African American) 13 ML/MIN (>60); Glucose 90 mg/dl (74-100); Potassium 4.6 mmoL/L (3.5-5.1); Sodium 132 mmol/L (136-145)
[2022-08-30 07:16] LABS: Neutrophils % 10.5 % (37.0-80.0); White Blood Count 80.1 K/mm3 (4.8-10.8)
[2022-08-30 07:17] LABS: Blood Urea Nitrogen 80 mg/dl (9-20); MANUAL DIFFERENTIAL MANUAL DIFFERENTIAL (MANUAL DIFF)
--- NOTE | 2022-08-30 08:00 | XR_ITS ---
PROCEDURE INFORMATION: Exam: XR Chest Exam date and time: 08/30/2022 8:18 AM Age: 82 years old Clinical indication: Shortness of breath; Additional info: Effusion TECHNIQUE: Imaging protocol: Radiologic exam of the chest. Views: 1 view. COMPARISON: CR XR CHEST PORTABLE 08/28/2022 5:49 AM FINDINGS: Lungs: Patchy alveolar airspace disease in the right mid lung and to a greater degree the right lung base. Suspected moderate pleural effusion. Pigtail drainage catheter within the inferior aspect of the left thorax. No visualized pneumothorax. Pleural spaces: See Lungs finding. Heart/Mediastinum: Unremarkable. No cardiomegaly. Bones/joints: Unremarkable. IMPRESSION: Patchy alveolar airspace disease in the right mid lung and to a greater degree the right lung base. Suspected moderate pleural effusion. Pigtail drainage catheter within the inferior aspect of the left thorax. No visualized pneumothorax. Moderate residual pleural effusions suspected.
[2022-08-30 08:26] LABS: Lymphocytes % 84 % (10-50); Monocytes % 3 % (2-9); Neutrophils % 13 % (42-76); Platelet Estimate Slight Decrease; Total Cells Counted 100
[2022-08-30 08:27] LABS: Hypochromasia 1+
--- NOTE | 2022-08-30 09:10 | EXP.ACUTE.PN ---
Subjective *Date: 08/30/22 *Time: 09:10 Interval history: Patient is pleasant, alert. Feels very tired today, continues to have a very weak cough. Medical Exam Vital signs and Labs for Last 24 Hours: Vital Signs Temp Pulse Resp BP Pulse Ox 08/30/22 08:00 97 08/30/22 07:27 97.7 F 62 18 117/48 L 97 08/30/22 04:00 97.8 F 53 L 17 123/47 L 98 08/30/22 00:00 97.9 F 57 L 20 122/47 L 98 08/29/22 20:00 99 08/29/22 20:00 97.7 F 61 17 133/51 L 99 08/29/22 15:40 97.9 F 62 19 118/47 L 96 08/29/22 11:24 97.7 F 62 18 122/56 L 95 Intake and Output 08/29/22 08/30/22 08/30/22 19:59 03:59 11:59 Intake Total 480 / 720 240 / 720 Output Total 500 / 740 100 / 740 140 / 740 Balance -20 / -20 -100 / -20 100 / -20 Intake: Intake, Oral Amount 480 / 720 240 / 720 Output: Output, Urine Amount 100 / 100 Output, Chest Tube Drainage 500 / 640 140 / 640 Amount Left Mid-Axillary Chest 500 / 640 140 / 640 Other: Number of Unmeasured Voids 1 Weight 150 lb 1.6 oz Patient Weight 08/30/22 11:59 Weight 150 lb 1.6 oz Laboratory Results - last 24 hr 08/25/22 14:10: Fluid pH 7.2, Fluid Glucose <2, Fluid Total Protein 3.8, Fluid Albumin 1.9, Fluid LDH 995 08/30/22 06:09: WBC 80.1 H*, RBC 2.95 L, Hgb 7.7 L, Hct 25.8 L, MCV 87.5, MCH 26.3 L, MCHC 30.0 L, RDW 15.9, Plt Count 136 L, MPV 7.7, Neut % (Auto) 10.5 L, Lymph % (Auto) 86.7 H, [place] % (Auto) 0.6 L, Eos % (Auto) 0.1, Baso % (Auto) 2.1 H, Neut # (Auto) 8.4 H, Lymph # (Auto) 69.4 H, [place] # (Auto) 0.5, Eos # (Auto) 0.1, Baso # (Auto) 1.7 H, Total Counted 100, Neutrophils % (Manual) 13 L, Lymphocytes % (Manual) 84 H, Monocytes % (Manual) 3, Platelet Estimate Slight decrease, Hypochromasia 1+ 08/30/22 06:09: Sodium 132 L, Potassium 4.6, Chloride 94 L, Carbon Dioxide 31 H, Anion Gap 11.6, BUN 80 H, Creatinine 5.20 H, Estimated Creat Clear 10, Estimated GFR 11 L*, Est GFR ( Amer) 13 L*, Glucose 90, Calcium 6.9 L I & O for Labs for Last 24 Hours: Intake & Output 08/27/22 08/28/22 08/29/22 08/30/22 11:59 11:59 11:59 11:59 Intake Total 480 / 480 840 / 840 920 / 920 720 / 720 Output Total 1250 / 1250 1450 / 1450 1050 / 1050 740 / 740 Balance -770 / -770 -610 / -610 -130 / -130 -20 / -20 Weight 153 lb 150 lb 1.6 oz 149 lb 1.6 oz 150 lb 1.6 oz Microbiology Reports for the Last 24 Hours: Microbiology 08/25/22 14:10 Thoracic Fluid Gram Stain - Final 08/25/22 14:10 Thoracic Fluid Body Fluid Culture - Preliminary NO GROWTH AFTER 4 DAYS 08/24/22 09:38 Sputum - Expectorated Sputum Gram Stain - Final 08/24/22 09:38 Sputum - Expectorated Sputum Sputum Culture - Final Normal Respiratory Gladis Comment:: Chest tubes in good position. Drainage noted in the tubing. Good air movement. Still has diminished air sounds in the left lower lung base. Heart rate regular. Pleasant, alert, pale and chronically ill-appearing but oriented x3. Ankle edema still improving over his baseline Assessment and Plan *Assessment and plan (1) Large pleural effusion: Status: Acute Category: Medical Code(s): J90 - Pleural effusion, not elsewhere classified (2) Chronic lymphocytic leukemia: Status: Acute Category: Medical Code(s): C91.10 - Chronic lymphocytic leukemia of B-cell type not having achieved remission (3) CLL (chronic lymphocytic leukemia): Status: Acute Category: Medical Code(s): C91.10 - Chronic lymphocytic leukemia of B-cell type not having achieved remission (4) Chronic kidney disease (CKD) stage G5/A1, glomerular filtration rate (GFR) less than or equal to 15 mL/min/1.73 square meter and albuminuria creatinine ratio less than 30 mg/g: Status: Acute Category: Medical Code(s): N18.5 - Chronic kidney disease, stage 5 Plan Improving after tPA administration. Continue following
--- NOTE | 2022-08-30 10:20 | PC.NURSE ---
PT RA O2 SAT: 83%.
--- NOTE | 2022-08-30 17:14 | PC.NURSE ---
A&OX4. PT HAS TOLERATED 3LNC THIS SHIFT, O2 SAT IN UPPER 90S. HAS BEEN UP TO CHAIR T/O SHIFT, TOLERATED WELL. RESTING IN BED AT THIS TIME. CHEST TUBE PRESENT WITH BLOODY DRAINAGE NOTED. WILL CHART TOTAL OUTPUT AT END OF SHIFT. AT BEDSIDE. PT HAS SEEMED QUITE DOWN TODAY, NOT VERY TALKATIVE AND STATES HE JUST FEELS TIRED AND BLAH . NO OTHER NEEDS OR C/O NOTED THUS FAR. VSS.
[2022-08-31] VITALS: BP 110/46; PULSE 57; RESP 20; TEMP 36.6
[2022-08-31 04:00] VITALS: BP 123/66; PULSE 62; RESP 20; TEMP 36.7; O2SAT 95; BMI 21.1
--- NOTE | 2022-08-31 07:00 | XR_ITS ---
FINAL REPORT CLINICAL HISTORY: Chest Tube COMPARISON: One day prior FINDINGS: A left pigtail chest tube is again seen. The heart size is normal. The mediastinum is within normal limits. Abnormal opacity in the right lung base is stable. There is a small residual left pleural effusion. There is no pneumothorax. The bony thorax is intact. IMPRESSION: Small residual left pleural effusion with pigtail catheter in place. Stable opacity in the right lung base. Reviewed, Interpreted and Dictated by Pepe Benjamin MD Transcribed by Bill Man Authenticated and . [facility]
--- NOTE | 2022-08-31 07:41 | EXP.ACUTE.PN ---
Subjective *Date: 08/31/22 *Time: 07:41 Interval history: No major changes overnight, patient has pain in his chest tube site but otherwise is breathing fairly comfortably. He is alert and pleasant. Had a fairly good breakfast. Medical Exam Vital signs and Labs for Last 24 Hours: Vital Signs Temp Pulse Resp BP Pulse Ox 08/31/22 04:00 98.0 F 62 20 123/66 95 08/30/22 19:00 97 08/31/22 00:00 97.8 F 57 L 20 110/46 L 08/30/22 20:00 98.3 F 64 20 119/57 L 98 08/30/22 16:00 99 08/30/22 15:17 97.4 F L 65 17 132/53 L 99 08/30/22 11:28 97.6 F 62 18 109/44 L 98 08/30/22 08:00 97 Intake and Output 08/30/22 08/31/22 08/31/22 19:59 03:59 11:59 Intake Total 480 / 480 Output Total 450 / 785 0 / 785 335 / 785 Balance 30 / -305 0 / -305 -335 / -305 Intake: Intake, Oral Amount 480 / 480 Output: Output, Urine Amount 0 / 100 0 / 100 100 / 100 Output, Pleural Fluid Amount 450 / 450 Output, Chest Tube Drainage 235 / 235 Amount Left Mid-Axillary Chest 235 / 235 Other: Number of Unmeasured Voids 3 1 0 Weight 151 lb 1 oz Patient Weight 08/31/22 11:59 Weight 151 lb 1 oz Laboratory Results - last 24 hr 08/30/22 06:09: Total Counted 100, Neutrophils % (Manual) 13 L, Lymphocytes % (Manual) 84 H, Monocytes % (Manual) 3, Platelet Estimate Slight decrease, Hypochromasia 1+ I & O for Labs for Last 24 Hours: Intake & Output 08/28/22 08/29/22 08/30/22 08/31/22 11:59 11:59 11:59 11:59 Intake Total 840 / 840 920 / 920 720 / 720 480 / 480 Output Total 1450 / 1450 1050 / 1050 740 / 740 785 / 785 Balance -610 / -610 -130 / -130 -20 / -20 -305 / -305 Weight 150 lb 1.6 oz 149 lb 1.6 oz 150 lb 1.6 oz 151 lb 1 oz Microbiology Reports for the Last 24 Hours: Microbiology 08/25/22 14:10 Thoracic Fluid Gram Stain - Final 08/25/22 14:10 Thoracic Fluid Body Fluid Culture - Final NO GROWTH AFTER 5 DAYS Comment:: Chest tubes in good position. Drainage noted in the tubing. Good air movement. Still has diminished air sounds in the left lower lung base. Heart rate regular. Pleasant, alert, pale and chronically ill-appearing but oriented x3. Ankle edema still improving over his baseline Assessment and Plan *Assessment and plan (1) Large pleural effusion: Status: Acute Category: Medical Code(s): J90 - Pleural effusion, not elsewhere classified (2) Chronic lymphocytic leukemia: Status: Acute Category: Medical Code(s): C91.10 - Chronic lymphocytic leukemia of B-cell type not having achieved remission (3) CLL (chronic lymphocytic leukemia): Status: Acute Category: Medical Code(s): C91.10 - Chronic lymphocytic leukemia of B-cell type not having achieved remission (4) Chronic kidney disease (CKD) stage G5/A1, glomerular filtration rate (GFR) less than or equal to 15 mL/min/1.73 square meter and albuminuria creatinine ratio less than 30 mg/g: Status: Acute Category: Medical Code(s): N18.5 - Chronic kidney disease, stage 5 Plan Improving after tPA administration. Continue following with pulmonary. Hemoglobin actually improved after tPA administration yesterday. In preparation for possible discharge we will try to arrange home health aides/DME including hospital bed, wheelchair and bedside commode for patient given his significant increased pain with movement and need for rapid changes in body position with his pleural effusion. We will get prescriptions to have these at home when he is discharged. Plan update 08/28/2022-overall doing well. tPA has helped drain, his chest x-rays look better. Ascites is also draining probably from transitive migration across the diaphragm and his ankles look good. Continue to do tPA as ordered by pulmonary. Plan update for 08/29/2022-no changes in plan from above to notes. Continue current therapies. C
[2022-08-31 08:00] VITALS: BP 122/51; PULSE 65; RESP 21; TEMP 36.6; O2SAT 94
--- NOTE | 2022-08-31 08:05 | DIET.NUTRFU ---
RD reviewed chart, patient's LBM was 08/25, reviewed with nursing. Stool softener ordered daily, patient denies any discomfort. He is on regular diet consuming 50% and receiving ensure BID with lunch and inner for extra calories. Possible discharge today, waiting to review chest tube output with pulmonary doctor. Output noted yesterday was 140ml, 235ml already today. Renal fxn declined BUN 80/Cr 5.2, patient and have declined HD may go home with hospice. Will continue to monitor
--- NOTE | 2022-08-31 09:33 | US_ITS ---
FINAL REPORT CLINICAL HISTORY: PEURAL EFFUSION,CHEST TUBE left FINDINGS: Limited sonographic images of the chest were obtained. There is a moderate left effusion. IMPRESSION: Moderate left effusion. CT could better evaluate. Reviewed, Interpreted and Dictated by Pepe Benjamin MD Transcribed by Jada Schwartz Authenticated and . [facility]
[2022-08-31 11:55] VITALS: BP 131/58; PULSE 60; RESP 22; TEMP 36.8; O2SAT 90
--- NOTE | 2022-08-31 13:24 | EXP.PULM.PN ---
Subjective *Date: 08/31/22 *Time: 13:24 Interval history: No acute respiratory events over the weekend. Patient denies any new respiratory complaints. Pulmonology Exam Inpatient Vital signs and Labs for Last 24 Hours: Temp Pulse Resp BP Pulse Ox FiO2 98.2 F 60 22 131/58 L 90 L 36 08/31/22 11:55 08/31/22 11:55 08/31/22 11:55 08/31/22 11:55 08/31/22 11:55 08/28/22 18:41 I & O for Labs for Last 24 Hours: Intake & Output 08/28/22 08/29/22 08/30/22 08/31/22 23:59 23:59 23:59 23:59 Intake Total 960 / 1160 920 / 920 720 / 720 120 / 120 Output Total 1080 / 1080 1150 / 1150 590 / 590 335 / 335 Balance -120 / 80 -230 / -230 130 / 130 -215 / -215 Weight 150 lb 1.6 oz 149 lb 1.6 oz 150 lb 1.6 oz 151 lb 1 oz Microbiology Reports for the Last 24 Hours: Microbiology 08/25/22 14:10 Thoracic Fluid Gram Stain - Final 08/25/22 14:10 Thoracic Fluid Body Fluid Culture - Final NO GROWTH AFTER 5 DAYS Constitutional: Present moderate distress Head: Present normocephalic and atraumatic ENT: Present normal exam, normal oropharynx and mucous membranes moist Neck: Present normal inspection and full ROM Respiratory: Present respiratory distress and able to speak in complete sentences; Absent wheezes Comment:: Improving aeration bilateral lower lung santana Cardiac: Present S1/S2, Tachycardia and radial pulses present GI: Present soft and distention; Absent tenderness or guarding Skin: Present intact; Absent cyanosis or jaundice Neuro: Present alert, awake and oriented x 3 Extremities: Present normal inspection and edema; Absent clubbing or cyanosis Psychiatric: Present normal affect and cooperative Assessment and Plan *Assessment and plan (1) Large pleural effusion: Status: Acute Category: Medical Code(s): J90 - Pleural effusion, not elsewhere classified (2) Pneumonia: Status: Acute Category: Medical Code(s): J18.9 - Pneumonia, unspecified organism (3) Acute respiratory failure with hypoxia: Status: Acute Category: Medical Code(s): J96.01 - Acute respiratory failure with hypoxia (4) Loculated pleural effusion: Status: Acute Category: Medical Code(s): J90 - Pleural effusion, not elsewhere classified Plan 82-year-old male history of CLL monitoring clinically with no treatments, history of SCC head and neck, follows at follow Dr. Person, stage IV-V kidney disease refused dialysis no significant prior respiratory complaints presented with worsening respiratory distress and found to large pleural effusion pulmonary was called for further evaluation. Patient also complains of worsening bilateral lower extremity edema that significant improved after his hospital admission. 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 Status post large bore chest tube placement on the left pleural space in the ER. Chest x-ray from April 2022 small left pleural effusion with no right effusion noted. large bore chest tube placed in the ER was removed as it is not in position. Bedside ultrasound confirmed loculated pleural effusion. 14 Czech chest tube was placed with 4 doses of tPA dornase. Significant improvement in effusion. Chest x-ray from this morning showed near complete resolution of effusion with residual small left pleural effusion. Ultrasound also confirmed very small pleural effusion. Chest tube was removed. Pleural fluid cytology for the second time showed negative for malignancy. Patient's current pleural effusions likely from CKD and volume overload Plan: -Continue oxygen supplementation to maintain O2 saturation of 90%. Currently on 4 L nasal cannula. -Completed 7-day course of levofloxacin -Incentive spirometry q1hr -DuoNebs every 6 hours on as-needed basis -Volume optimization and CKD management as per janie
[2022-08-31 16:00] VITALS: BP 143/76; PULSE 57; RESP 20; TEMP 36.7; O2SAT 100
--- NOTE | 2022-08-31 17:34 | PC.NURSE ---
Pt got his chest tube removed this afternoon and is currenlty resting in the chair. Did have a nose bleed and we added more humidification to his NC. Respiratory was notified. patient did have a BM today. Patient didnt state any complaints
[2022-08-31 20:00] VITALS: BP 141/80; PULSE 66; RESP 19; TEMP 36.7; O2SAT 100
[2022-09-01] VITALS: BP 135/56; PULSE 56; RESP 18; TEMP 36.5; O2SAT 100
[2022-09-01 04:00] VITALS: BP 142/63; PULSE 59; RESP 19; TEMP 36.6; O2SAT 100; BMI 20.5
[2022-09-01 07:26] VITALS: BP 142/60; PULSE 62; RESP 17; TEMP 36.6; O2SAT 100
[2022-09-01 08:00] VITALS: O2SAT 100
--- NOTE | 2022-09-01 08:41 | EXP.DC.SUM ---
General Admission date:: 08/21/22 Discharge date: 09/01/22 HPI HPI HPI: 82-year-old male with history of CLL over the past 2 decades-has been followed at [facility] but is currently not undergoing active treatment. White blood cell counts have been above 80,000 for the past several years. He is also developed worsening renal insufficiency with severe chronic kidney disease-now stage V. Has declined dialysis and has decided to maintain a DNR status. Has been living at home with his , they have contemplated hospice care but have recently decided to go with home health therapy for some PT and also treatment for mild decubitus ulcer. However he became acutely short of air worse than baseline over the past couple of days and presented to the ER yesterday. He was found to have significant collapse of the left lung and after appropriate imaging thoracentesis was done by the ER with chest tube placed by the ER physician with 350 mL of fluid obtained and good relief of his symptoms. Admitted to hospital for further evaluation. This morning he states that his breathing is much better, has very minimal pain at the chest tube insertion site and feels much more comfortable. Hospital Course Hospital Course Hospital Course: Patient was admitted. Chest tube was placed in the ER. Pulmonary was consulted because of his significant morbidity issues. Placed a second chest tube and effusion on CT scan was found to be loculated. Patient was given several rounds of tPA and the tube which broke up the effusion and enabled significant drainage. Of note patient had a significant transudative effusion. Levaquin was given prophylactically for 5 days and patient completed this course successfully. Patient also had significant ascites which seemed to transudate across the diaphragm and was drained by the chest tube. He felt better in regards to breathing issues. He also had pedal edema that interestingly improved drastically during his hospital stay with chest tube placement. Pulmonary was able to pull the tube yesterday and is done well since that time. Kidney function remains poor and he is in stage V kidney failure. He does not wish to have dialysis. He maintains a DNR status. After discussion about his significant weakness, his and he decided that he was probably too weak to go home at this point and we will initiate placement at [facility] for PT and OT evaluation. We will see how he does there before decisions made about home with either home health or hospice care. He will be admitted to [facility]. He will need PT and OT evaluation. He will need a CBC and BMP next Tuesday,, his DNR status will continue to be respected. Medications will be as noted. I will follow him on longterm rounds. Medications on transfer are noted. Please note I am changing his home furosemide from 80 twice daily to 40 daily given his vast improvement in edema from the procedures in the hospital. If need increases the longterm this certainly can be done. Exam Data for Last 24 hours Vital signs and Labs for Last 24 Hours: Temp Pulse Resp BP Pulse Ox FiO2 97.9 F 62 17 142/60 H 100 36 09/01/22 07:26 09/01/22 07:26 09/01/22 07:09/01/22 07:09/01/22 07:08/28/22 18:41 I & O for Last 24 hours: Intake & Output 08/29/22 08/30/22 08/31/22 09/01/22 11:59 11:59 11:59 11:59 Intake Total 920 / 920 720 / 720 600 / 600 440 / 440 Output Total 1050 / 1050 740 / 740 785 / 785 200 / 200 Balance -130 / -130 -20 / -20 -185 / -185 240 / 240 Weight 149 lb 1.6 oz 150 lb 1.6 oz 151 lb 1 oz 146 lb 6.4 oz Microbiology Reports for the Last 24 Hours: Microbiology 08/23/22 15:00 Thoracic Fluid Gram Stain - Final 08/23/22 15:00 Thoracic Fluid Body Fluid Culture - Final NO GROWTH AFTER 5 DAYS Constitutional Constitutional: no acute distress, thin, cachectic and chroni
--- NOTE | 2022-09-01 10:26 | EXP.PULM.PN ---
Subjective *Date: 09/02/22 *Time: 16:09 Interval history: No acute respiratory vents overnight. Pulmonology Exam Inpatient Vital signs and Labs for Last 24 Hours: Temp Pulse Resp BP Pulse Ox FiO2 97.9 F 62 17 142/60 H 100 36 09/01/22 07:26 09/01/22 07:26 09/01/22 07:26 09/01/22 07:26 09/01/22 08:00 08/28/22 18:41 I & O for Labs for Last 24 Hours: Intake & Output 08/29/22 08/30/22 08/31/22 09/01/22 23:59 23:59 23:59 23:59 Intake Total 920 / 920 720 / 720 480 / 560 80 / 80 Output Total 1150 / 1150 590 / 590 535 / 535 0 / 0 Balance -230 / -230 130 / 130 -55 / 25 80 / 80 Weight 149 lb 1.6 oz 150 lb 1.6 oz 151 lb 1 oz 146 lb 6.4 oz Microbiology Reports for the Last 24 Hours: Microbiology 08/23/22 15:00 Thoracic Fluid Gram Stain - Final 08/23/22 15:00 Thoracic Fluid Body Fluid Culture - Final NO GROWTH AFTER 5 DAYS Constitutional: Present moderate distress Head: Present normocephalic and atraumatic ENT: Present normal exam, normal oropharynx and mucous membranes moist Neck: Present normal inspection and full ROM Respiratory: Present respiratory distress and able to speak in complete sentences; Absent wheezes Comment:: Improving aeration bilateral lower lung santana Cardiac: Present S1/S2, Tachycardia and radial pulses present GI: Present soft and distention; Absent tenderness or guarding Skin: Present intact; Absent cyanosis or jaundice Neuro: Present alert; Absent awake or oriented x 3 Extremities: Present normal inspection and edema; Absent clubbing or cyanosis Psychiatric: Present normal affect and cooperative Assessment and Plan *Assessment and plan (1) Large pleural effusion: Status: Acute Category: Medical Code(s): J90 - Pleural effusion, not elsewhere classified (2) Pneumonia: Status: Acute Category: Medical Code(s): J18.9 - Pneumonia, unspecified organism (3) Acute respiratory failure with hypoxia: Status: Acute Category: Medical Code(s): J96.01 - Acute respiratory failure with hypoxia (4) Loculated pleural effusion: Status: Acute Category: Medical Code(s): J90 - Pleural effusion, not elsewhere classified Plan 82-year-old male history of CLL monitoring clinically with no treatments, history of SCC head and neck, follows at follow Dr. Person, stage IV-V kidney disease refused dialysis no significant prior respiratory complaints presented with worsening respiratory distress and found to large pleural effusion pulmonary was called for further evaluation. Patient also complains of worsening bilateral lower extremity edema that significant improved after his hospital admission. 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 Status post large bore chest tube placement on the left pleural space in the ER. Chest x-ray from April 2022 small left pleural effusion with no right effusion noted. large bore chest tube placed in the ER was removed as it is not in position. Bedside ultrasound confirmed loculated pleural effusion. 14 Hungarian chest tube was placed with 4 doses of tPA dornase. Significant improvement in effusion. Chest x-ray from this morning showed near complete resolution of effusion with residual small left pleural effusion. Ultrasound also confirmed very small pleural effusion. 14Fr Chest tube was removed this morning. Suture placed for the lateral chest tube removed this morning. Patient appears very weak and lethargic this morning. Being discharged to acute rehab. Pleural fluid cytology for the second time showed negative for malignancy. Patient's current pleural effusions likely from CKD and volume overload Plan: -Continue oxygen supplementation to maintain O2 saturation of 90%. Currently on 4 L nasal cannula. -Completed 7-day course of levofloxacin -Incentive s
--- NOTE | 2022-09-02 14:21 | CARE MANAGER ---
Spoke with nurse at [facility] states that patient is doing well and has no issues.
== END 2022-09-01 11:45 | DRG 186 ==
LOC: ER 14:22 → 2ND 14:53
PROVIDERS: Internal Medicine Pulmonary Disease; Admitting Provider Family Medicine; Emergency Provider Family Medicine; PCP Internal Medicine Adolescent Medicine; Visit Provider Internal Medicine Adolescent Medicine
DX: J90 Pleural effusion, not elsewhere classified (principal); J18.9 Pneumonia, unspecified organism; J96.00 Acute respiratory failure, unspecified whether with hypoxia or hypercapnia; C91.10 Chronic lymphocytic leukemia of B-cell type not having achieved remission; N18.5 Chronic kidney disease, stage 5; J98.19 Other pulmonary collapse; R18.8 Other ascites; E87.6 Hypokalemia; E83.51 Hypocalcemia; D63.1 Anemia in chronic kidney disease
CPT/HCPCS: 32554; 32555; 32557; 37212; 36415; 71045; 71250; 76604; 76700; 80048; 80053; 82042; 82272; 82945; 83615; 83880; 83986; 84155; 84484; 85007; 85014; 85018; 85025; 85610; 87040; 87070; 87205; 87636; 88112; 88305; 89051; 93005; 94761; 97110; 97162; 97530; 99152; 99285; 99291; C9803; G0328; J1956; J2405; J7639; U0003; U0005